=== PATIENT | female | born 1950 | race Caucasian/White ===

== ENCOUNTER → 2022-05-27 13:27 | Outpatient (BNVA) | payer MEDICARE, OTHER, SELFPAY | PROVIDERS: PCP Registered Nurse; Visit Provider Internal Medicine Endocrinology, Diabetes & Metabolism | DX: M81.0 Age-related osteoporosis without current pathological fracture (principal) | CPT/HCPCS: 99212 ==

== ENCOUNTER 2022-05-30 11:04 | Outpatient (REF) | payer MEDICARE, OTHER, SELFPAY ==
[2022-05-30 13:54] LABS: Alkaline Phosphatase 80 U/L (39-117); Blood Urea Nitrogen 15 mg/dL (9-16); Estimated Glomerular Filt Rate > 60; Phosphorus 3.7 mg/dL (2.7-4.5)
[2022-05-30 14:09] LABS: Free T4 (Free Thyroxine) 1.13 ng/dL (0.71-1.85); Thyroid Stimulating Hormone 1.61 uIU/mL (0.32-4.0); Vitamin D 25-OH Total 33.4 ng/mL (>30)
[2022-05-31 11:49] LABS: Calcium (PTHI) 9.5 mg/dL (8.6-10.4); PTHI 48 pg/mL (16-77)
[2022-06-01 11:42] LABS: Prot Elec - Alpha1 0.3 g/dL (0.2-0.3); Prot Elec - Alpha2 0.7 g/dL (0.5-0.9); Prot Elec - Beta 1 0.4 g/dL (0.4-0.6); Prot Elec - Beta 2 0.2 g/dL (0.2-0.5); Prot Elec - Gamma 0.6 g/dL (0.8-1.7); Prot Elec - Total Protein 6.1 g/dL (6.1-8.1)
== END 2022-05-30 11:05 | disposition home or self-care (01) ==
LOC: HO.10HDL 11:04
PROVIDERS: Visit Provider Internal Medicine Endocrinology, Diabetes & Metabolism
DX: M81.0 Age-related osteoporosis without current pathological fracture (principal); R53.83 Other fatigue; R53.81 Other malaise
CPT/HCPCS: 82306; 82565; 83970; 84075; 84100; 84165; 84439; 84443; 84520; 86335

== ENCOUNTER 2022-06-02 11:56 | Outpatient (REF) | payer MEDICARE, OTHER, SELFPAY ==
[2022-06-02 15:13] LABS: Creatinine, mg/dL 38.98
[2022-06-02 16:57] LABS: Creatinine, 24Hr Urine 0.7 G/Day (1.0-2.0); Total Volume 24 Hour Urine 1775 mL
[2022-06-04 18:44] LABS: Calcium, 24 Hr Urine 87 mg/24 h; Calcium/Creatinine Ratio 129 mg/g creat (30-275); Creatinine 24Hr Urine 0.67 g/24 h (0.50-2.15)
== END 2022-06-02 11:57 | disposition home or self-care (01) ==
LOC: HO.10HDLNP 11:56
PROVIDERS: Visit Provider Internal Medicine Endocrinology, Diabetes & Metabolism
DX: M81.0 Age-related osteoporosis without current pathological fracture (principal)
CPT/HCPCS: 82340; 82570

== ENCOUNTER → 2022-08-05 12:56 | Outpatient (BNVA) | payer MEDICARE, OTHER, SELFPAY | PROVIDERS: PCP Registered Nurse; Visit Provider Internal Medicine Endocrinology, Diabetes & Metabolism | DX: M81.0 Age-related osteoporosis without current pathological fracture (principal) | CPT/HCPCS: 99212 ==

== ENCOUNTER → 2022-08-29 10:41 | Outpatient (BNVA) | payer MEDICARE, OTHER, SELFPAY | PROVIDERS: PCP Registered Nurse; Visit Provider Internal Medicine Endocrinology, Diabetes & Metabolism ==

== ENCOUNTER 2022-12-13 11:02 | Outpatient (AMB) | payer MEDICARE, OTHER, SELFPAY ==
--- NOTE | 2022-12-13 11:04 | MHC.OFFVIS ---
Intake Vital Signs 12/13/22 11:05 Height 5 ft 3.54 in Weight 140 lb 3.424 oz BMI 24.4 BP 130/44 L Blood Pressure Location Lt brachial Position Sitting Pulse 69 Pulse Source Pulse Oximeter Intake Visit Reasons: Osteoporosis/Confirmed Intake Note: Patient present for Osteoporosis follow up visit. 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 Not seen wheel blocker First diagnosed in 2 yrs . Received treatment in the past with Miacalcin , from 05/03/22 to present . Tolerated treatment well without complication. history of pathologic fracture slipped on bathroom room 04/28/22 Compression FX in L1-L3 Has some servings of dietary calcium per day in the form of yogurt . Takes Calcium supplement 820 mg daily in divided doses. Takes 3400 IU of Vitamin D daily. Denies ever using PPI, anticoagulant, antiepileptic or glucocorticoid medication. Does weight bearing exercise 5-7 days per week in the form of barbells . 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 UTD on dental cleanings and sees dentist every 6 months. No planned upcoming dental work or extractions. DXA dated 03/18/21: Femoral neck T-score equals -3.1 Labs: Secondary workup was negative Currently on Tymlos 80 mcg q.d. for 10 wks [facility] Medical History (Updated 05/27/22 @ 13:49 by Hayden Galindo MD) Osteoporosis Surgical History Hx of bone density study Hx of colonoscopy History of carpal tunnel surgery Hx of mammogram Hx of tonsillectomy Hx of tubal ligation Hx of breast biopsy Hx of total hysterectomy Hx of hysterectomy Family History Mother Alzheimer disease Depressive disorder Dementia Father Cerebrovascular accident (CVA) determined by clinical assessment Hypercholesteremia Diabetes mellitus Brother Diabetes mellitus Asthma Brother Diabetes mellitus Social History Household Members: Spouse and Children Alcohol intake: current Alcohol intake frequency: 0-2 drinks per day Alcohol type: wine Patient Tobacco Use Status: Former Tobacco user Tobacco use type: Cigarette Years Smoked: >20 yrs, started age 14 e-Cigarette/Vaping Use: Never Used Physical Exam Vital Signs: Last Vital Signs Pulse 69 12/13/22 11:05 BP 130/44 L 12/13/22 11:05 BMI result Body Mass Index 24.4 Assessment & Plan Assessment & Plan (1) Osteoporosis: Code(s): M81.0 - Age-related osteoporosis without current pathological fracture Plan: This is a 71-year-old white female with history of osteoporosis currently being treated with intranasal calcitonin. Secondary workup was negative The plan is to continue the Tymlos for 18 months duration Coding Level of Care Code Est Pt Level 3 (48738) Diagnoses Osteoporosis M81.0
[2022-12-13 11:05] VITALS: BP 130/44; PULSE 69; BMI 24.4
== END 2022-12-13 11:44 | disposition home or self-care (01) ==
PROVIDERS: PCP Registered Nurse; Visit Provider Internal Medicine Endocrinology, Diabetes & Metabolism
DX: M81.0 Age-related osteoporosis without current pathological fracture (principal)
CPT/HCPCS: 99213

== ENCOUNTER → 2022-12-13 11:02 | Outpatient (BNVA) | payer MEDICARE, OTHER, SELFPAY | PROVIDERS: Visit Provider Internal Medicine Endocrinology, Diabetes & Metabolism | DX: M81.0 Age-related osteoporosis without current pathological fracture (principal) | CPT/HCPCS: 99212 ==

== ENCOUNTER 2023-07-17 10:53 | Outpatient (AMB) | payer MEDICARE, OTHER, SELFPAY ==
[2023-07-17 10:54] VITALS: BP 126/48; PULSE 67; BMI 25.6
--- NOTE | 2023-07-17 10:54 | MHC.OFFVIS ---
Vital Signs 07/17/23 10:54 Height 5 ft 3.54 in Weight 146 lb 13.246 oz BMI 25.6 BP 126/48 L Blood Pressure Location Lt brachial Position Sitting Pulse 67 Pulse Source Pulse Oximeter Intake Visit Reasons: f/u osteoporosis-confirmed Intake Note: Patient presents today for Osteoporosis follow up. Rehabilitation Assistant Required: No Accompanied by: Self / Same As Patient Allergies ibuprofen Adverse Reaction (Unknown, Verified 07/17/23 11:01) Rash HPI Comments Details: 72 YO Female with is seen in consultation at the request of PCP for Osteoporosis. First diagnosed in 2 yrs . Received treatment in the past with Miacalcin , from 05/03/22 to present . Tolerated treatment well without complication. history of pathologic fracture slipped on bathroom room 04/28/22 Compression FX in L1-L3 Has some servings of dietary calcium per day in the form of yogurt . Takes Calcium supplement 820 mg daily in divided doses. Takes 3400 IU of Vitamin D daily. Denies ever using PPI, anticoagulant, antiepileptic or glucocorticoid medication. Does weight bearing exercise 5-7 days per week in the form of barbells . 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 UTD on dental cleanings and sees dentist every 6 months. No planned upcoming dental work or extractions. DXA dated 03/18/21: Femoral neck T-score equals -3.1 Labs: Secondary workup was negative Currently on Tymlos 80 mcg q.d. for 11 mos No fx or unual back pain since last visit [facility] Medical History (Updated 05/27/22 @ 13:49 by Hayden Galindo MD) Osteoporosis Surgical History Hx of bone density study Hx of colonoscopy History of carpal tunnel surgery Hx of mammogram Hx of tonsillectomy Hx of tubal ligation Hx of breast biopsy Hx of total hysterectomy Hx of hysterectomy Family History Mother Alzheimer disease Depressive disorder Dementia Father Cerebrovascular accident (CVA) determined by clinical assessment Hypercholesteremia Diabetes mellitus Brother Diabetes mellitus Asthma Brother Diabetes mellitus Social History Household Members: Spouse and Children Alcohol intake: current Alcohol intake frequency: 0-2 drinks per day Alcohol type: wine Patient Tobacco Use Status: Former Tobacco user Tobacco use type: Cigarette Years Smoked: >20 yrs, started age 14 e-Cigarette/Vaping Use: Never Used Physical Exam Vital Signs: Last Vital Signs Pulse 67 07/17/23 10:54 BP 126/48 L 07/17/23 10:54 BMI result Body Mass Index 25.6 Assessment & Plan Assessment & Plan (1) Osteoporosis: Code(s): M81.0 - Age-related osteoporosis without current pathological fracture Category: Medical Plan: This is a 71-year-old white female with history of osteoporosis currently being treated with Tymlos for 11 mos . Secondary workup was negative The plan is to continue the Tymlos for 18 months duration Medications: Refilled abaloparatide (Tymlos) inject into abdomen; do not inject within 2 inches of belly button/navel; rotate sites 80 mcg (0.04 mL) subcut DAILY 1.56 mL 6RF abaloparatide (Tymlos) inject into abdomen; do not inject within 2 inches of belly button/navel; rotate sites 80 mcg (0.04 mL) subcut DAILY 1.56 mL 6RF
== END 2023-07-17 11:24 | disposition home or self-care (01) ==
LOC: HO.ENCR 10:53
PROVIDERS: PCP Registered Nurse; Visit Provider Internal Medicine Endocrinology, Diabetes & Metabolism
DX: M81.0 Age-related osteoporosis without current pathological fracture (principal)
CPT/HCPCS: 99213

== ENCOUNTER → 2023-07-17 10:53 | Outpatient (BNVA) | payer MEDICARE, OTHER, SELFPAY | PROVIDERS: PCP Registered Nurse; Visit Provider Internal Medicine Endocrinology, Diabetes & Metabolism | DX: M81.0 Age-related osteoporosis without current pathological fracture (principal) | CPT/HCPCS: 99212 ==

== ENCOUNTER 2023-12-25 10:47 | Outpatient (AMB) | payer MEDICARE, OTHER, SELFPAY ==
--- NOTE | 2023-12-25 10:52 | A.OFFVIS_ITS ---
Vital Signs 12/25/23 10:57 Height 5 ft 3.54 in Weight 146 lb 2.664 oz BMI 25.5 BP 110/54 L Blood Pressure Location Rt brachial Position Sitting Pulse 74 Pulse Source Pulse Oximeter Intake Visit Reasons: Osteoporosis. LVM Intake Note: Patient present today for Osteoporosis follow up. Offal Worker Required: No Accompanied by: Spouse Allergies ibuprofen Adverse Reaction (Unknown, Verified 12/25/23 10:57) Rash HPI Comments Details: 73 YO Female with is seen in consultation at the request of PCP for Osteoporosis. First diagnosed in 2 yrs . Received treatment in the past with Miacalcin , from 05/03/22 to present . Tolerated treatment well without complication. history of pathologic fracture slipped on bathroom room 04/28/22 Compression FX in L1-L3 Has some servings of dietary calcium per day in the form of yogurt . Takes Calcium supplement 820 mg daily in divided doses. Takes 3400 IU of Vitamin D daily. Denies ever using PPI, anticoagulant, antiepileptic or glucocorticoid medication. Does weight bearing exercise 5-7 days per week in the form of barbells . 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 UTD on dental cleanings and sees dentist every 6 months. No planned upcoming dental work or extractions. DXA dated 03/18/21: Femoral neck T-score equals -3.1 Labs: Secondary workup was negative Currently on Tymlos 80 mcg q.d. for 17 mos No fx or unual back pain since last visit PFSH Medical History (Updated 05/27/22 @ 13:49 by Hayden Galindo MD) Osteoporosis Surgical History Hx of bone density study Hx of colonoscopy History of carpal tunnel surgery Hx of mammogram Hx of tonsillectomy Hx of tubal ligation Hx of breast biopsy Hx of total hysterectomy Hx of hysterectomy Family History Mother Alzheimer disease Depressive disorder Dementia Father Cerebrovascular accident (CVA) determined by clinical assessment Hypercholesteremia Diabetes mellitus Brother Diabetes mellitus Asthma Brother Diabetes mellitus Social History Household Members: Spouse and Children Alcohol intake: current Alcohol intake frequency: 0-2 drinks per day Alcohol type: wine Patient Tobacco Use Status: Former Tobacco user Tobacco use type: Cigarette Years Smoked: >20 yrs, started age 14 e-Cigarette/Vaping Use: Never Used Assessment & Plan Assessment & Plan (1) Osteoporosis: Code(s): M81.0 - Age-related osteoporosis without current pathological fracture Category: Medical Plan: This is a 73-year-old white female with history of osteoporosis currently being treated with Tymlos for 16 mos . Secondary workup was negative The plan is to continue the Tymlos for 18 months duration. Could consider transitioning either to Prolia or bisphosphonate. After careful discussion with the patient's , we decided to transition to alendronate 70 mg Q weekly. She will start this in February 2024. We will check urine NTX 3 months after initiation of alendronate. I went over proper administration of alendronate and side effects of alendronate. She will continue calcium and vitamin-D supplementation as well as weight-bearing exercise Orders: Orders Collagen Crosslinks NTX 5 Months M81.0 - Age-related osteoporosis without current pathological fracture Medications: New alendronate 70 mg PO QWEEK 5 tabs 6RF Coding Level of Care Code Est Pt Level 3 (04369) Diagnoses Osteoporosis M81.0
[2023-12-25 10:57] VITALS: BP 110/54; PULSE 74; BMI 25.5
== END 2023-12-25 11:32 | disposition home or self-care (01) ==
PROVIDERS: PCP Registered Nurse; Visit Provider Internal Medicine Endocrinology, Diabetes & Metabolism
DX: M81.0 Age-related osteoporosis without current pathological fracture (principal)
CPT/HCPCS: 99213

== ENCOUNTER → 2023-12-25 10:47 | Outpatient (BNVA) | payer MEDICARE, OTHER, SELFPAY | PROVIDERS: PCP Registered Nurse; Visit Provider Internal Medicine Endocrinology, Diabetes & Metabolism | DX: M81.0 Age-related osteoporosis without current pathological fracture (principal) | CPT/HCPCS: 99212 ==

== ENCOUNTER 2024-06-24 10:55 | Outpatient (AMB) | payer MEDICARE, OTHER, SELFPAY ==
--- NOTE | 2024-06-24 10:59 | A.OFFVIS_ITS ---
Vital Signs 06/24/24 11:04 Height 5 ft 3.5 in Weight 140 lb 10.479 oz BMI 24.5 BP 98/48 L Blood Pressure Location Rt brachial Position Sitting Pulse 90 Pulse Source Pulse Oximeter Pulse Oximetry (%) 98 Oxygen Delivery Method Room Air Intake Visit Reasons: f/u osteoporosis Intake Note: Patient present today for Osteoporosis follow up. 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 Accompanied by: Spouse Allergies ibuprofen Adverse Reaction (Unknown, Verified 06/24/24 11:05) Rash Medication List - Last Reconciled 06/24/24 by Hayden Galindo MD abaloparatide (Tymlos) 80 mcg (0.04 mL) subcut DAILY alendronate 70 mg PO QWEEK ascorbic acid (vitamin C) mg PO calcium carbonate (Antacid Calcium) 215 mg PO BID calcium carbonate-vitamin D3 600 mg-10 mcg (400 unit) (Calcium 600 with Vitamin D3) tabs PO cholecalciferol (vitamin D3) 50 mcg PO DAILY donepezil 10 mg PO BEDTIME lisinopril 10 mg PO DAILY lisinopril 20 mg PO DAILY multivitamin 1 tab PO DAILY rosuvastatin 10 mg PO DAILY HPI Comments Details: 73 YO Female with is seen in consultation at the request of PCP for Osteoporosis. First diagnosed in 2 yrs . Received treatment in the past with Miacalcin , from 05/03/22 to present . Tolerated treatment well without complication. history of pathologic fracture slipped on bathroom room 04/28/22 Compression FX in L1-L3 Has some servings of dietary calcium per day in the form of yogurt . Takes Calcium supplement 820 mg daily in divided doses. Takes 3400 IU of Vitamin D daily. Denies ever using PPI, anticoagulant, antiepileptic or glucocorticoid medication. Does weight bearing exercise 5-7 days per week in the form of barbells . 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 UTD on dental cleanings and sees dentist every 6 months. No planned upcoming dental work or extractions. DXA dated 03/18/21: Femoral neck T-score equals -3.1 Labs: Secondary workup was negative Currently on alendronate 70 mg Q weekly since 02/2024. Did not go for urine NTX No fx or unual back pain since last visit The patient is a 73-year-old female presenting for a follow-up and evaluation of osteoporosis management. She has been consistent with her Alendronate regimen since March 01. She reported no adverse effects or fractures since starting the medication. The patient will have a bone turnover test to evaluate the efficacy of the treatment. Previously, she had a T-score indicating osteoporosis, but the condition shows some improvement. The patient engages in light weight-bearing exercises and uses a large exercise ball for physical activity, which is beneficial for her osteoporosis and spinal health. [facility] Medical History (Updated 05/27/22 @ 13:49 by Hayden Galindo MD) Osteoporosis Surgical History Hx of bone density study Hx of colonoscopy History of carpal tunnel surgery Hx of mammogram Hx of tonsillectomy Hx of tubal ligation Hx of breast biopsy Hx of total hysterectomy Hx of hysterectomy Family History Mother Alzheimer disease Depressive disorder Dementia Father Cerebrovascular accident (CVA) determined by clinical assessment Hypercholesteremia Diabetes mellitus Brother Diabetes mellitus Asthma Brother Diabetes mellitus Social History Household Members: Spouse and Children Alcohol intake: current Alcohol intake frequency: 0-2 drinks per day Alcohol type: wine Patient Tobacco Use Status: Former Tobacco user Tobacco use type: Cigarette Years Smoked: >20 yrs, started age 14 e-Cigarette/Vaping Use: Never Used Assessment & Plan Assessment & Plan (1) Osteoporosis: Code(s): M81.0 - Age-related osteoporosis without current pathological fracture Category: Medical Plan: This is a 73-year-old white female with history of osteoporosis currently being treated with alendronate after taking a 18 month course of Tymlos . Secondary workup was negative The plan is to check urine NTX. Assuming urine NTX is suppressed we will continue alendronate until repeat DEXA in 05/2025. 1. Osteoporosis: The patient's osteoporosis is currently managed with Alendronate following Tymlos , showing some improvement. She is scheduled for a bone turnover test and a follow-up bone density scan in one year to ensure the treatment's efficacy. Continued exercise and adherence to the medication regimen are advised. Pain from prior fractures is managed with acetaminophen. During our conversation, I discussed the current management of osteoporosis with the patient, focusing on the continued use of Alendronate and the importance of regular monitoring through bone turnover tests and bone density scans. We reviewed the T-score indicating osteoporosis and her improvement over time. I emphasized the importance of maintaining a light exercise regimen to support bone health. We also discussed the follow-up bone turnover test and how it aligns with ensuring the suppression of turnover markers into the premenopausal range. The patient was agreeable to continue with the current treatment plan, and the necessity of the planned diagnostics to evaluate treatment efficacy was confirmed. Additionally, the use of acetaminophen was reviewed as needed for pain management related to past fractures. - Continue taking Alendronate as prescribed, once a week with a full glass of water. - Maintain the exercise routine with light weight-bearing activities. - Use acetaminophen as needed for pain, keeping below the daily maximum dose. - Attend scheduled lab tests, including the bone turnover test. - Plan to have a follow-up bone density scan in approximately one year. - The patient had an opportunity to ask questions regarding treatment plan. The patient expressed understanding and agreement with the above treatment plan. Patient was informed and verbally consented to the use of an ambient scribe for clinic note documentation during this visit. Orders: Orders XR DEXA axial skeleton 1 Year M81.0 - Age-related osteoporosis without current pathological fracture Collagen Crosslinks NTX 6 Months M81.0 - Age-related osteoporosis without current pathological fracture Medications: Discontinued abaloparatide (Tymlos) Discontinued Reason: Doctor's Order 80 mcg (0.04 mL) subcut DAILY 1.56 mL 3RF Coding Level of Care Code Est Pt Level 3 (98007) Diagnoses Osteoporosis M81.0
[2024-06-24 11:04] VITALS: BP 98/48; PULSE 90; O2SAT 98; BMI 24.5
--- OUTSIDE RECORDS SUMMARY | 2024-06-24 12:23 | XMS_ITS | Data Portability ---
Author Organization [facility], Main Office Address [address] [facility] [address] [place] [id number] Care Team Providers Care Lineworker Name Role Phone PRASANNA STILL Community Support Associate [phone] GUY JACKSON Orthopedic Surgeon [phone] [facility] [place] [employer]age Supervisor AT PHYSICAL THERAPY - [facility] YURIDIA ANDRADE Primary Care Provider Assessment No assessment recorded. Plan of Treatment Reminders Order Date Submit Date Provider Last Modified By Organization Details Last Modified Time Details Appointments FOLLOW UP 30MIN 2024 10:30A M Yuridia Andrade PA-C Not available Not available Not available Lab CBC w/ auto diff 2024 025 JAIDEN [facility] (Centralized Electronic Ordering - All Locations), Patient Can Go To The Location Of Their Choice, 05/08/2024 08:07:59 lipid panel, serum 2024 025 JAIDEN [facility] (Centralized Electronic Ordering - All Locations), Patient Can Go To The Location Of Their Choice, 05/08/2024 08:07:57 CMP, serum or plasma 2024 025 JAIDEN [facility] (Centralized Electronic Ordering - All Locations), Patient Can Go To The Location Of Their Choice, 05/08/2024 08:07:56 TSH + free T4, serum 2024 025 JAIDEN [facility] (Centralized Electronic Ordering - All Locations), Patient Can Go To The Location Of Their Choice, 05/08/2024 08:07:58 vitami n D, 25-hyd gene, total, serum 2023 JAIDEN [facility] (Centralized Electronic Ordering - All Locations), Patient Can Go To The Location Of Their Choice, 10/12/2023 14:06:51 PTH (parat hyroid hormon e), intact + calciu m, serum or plasma 2023 024 JAIDEN [facility] (Centralized Electronic Ordering - All Locations), Patient Can Go To The Location Of Their Choice, 10/12/2023 14:06:50 BMP, serum or plasma 2023 024 JAIDEN [facility] (Centralized Electronic Ordering - All Locations), Patient Can Go To The Location Of Their Choice, 10/12/2023 14:06:48 CBC w/ auto diff 2023 JAIDEN [facility] (Centralized Electronic Ordering - All Locations), Patient Can Go To The Location Of Their Choice, 10/12/2023 14:06:47 hepati c functi on panel, serum 2023 JAIDEN [facility] (Centralized Electronic Ordering - All Locations), Patient Can Go To The Location Of Their Choice, 10/12/2023 14:06:49 lipid panel, serum 2023 024 JAIDEN [facility] (Centralized Electronic Ordering - All Locations), Patient Can Go To The Location Of Their Choice, 10/12/2023 14:06:50 osmola lity, urine 2023 024 JAIDEN Not available 05/02/2023 22:42:58 osmola lity, serum 2023 024 JAIDEN Not available 05/02/2023 19:25:36 adh (antid iureti c hormon e), serum or plasma 2023 024 JAIDEN Not available 05/12/2023 15:06:28 sodium , urine 2023 024 JAIDEN Not available 05/02/2023 22:30:33 CBC w/ auto diff 2023 024 JAIDEN Not available 04/12/2023 15:55:09 lipid panel, serum 2023 024 [email or web address] Not available 11/02/2023 11:51:58 CMP, serum or plasma 2023 024 JAIDEN Not available 04/12/2023 16:27:04 TSH, serum or plasma 2023 024 JAIDEN Not available 04/12/2023 16:48:56 T4, free, serum 2023 024 JAIDEN Not available 04/12/2023 16:48:55 ESR (eryth rocyte sedime ntatio n rate), blood 2022 023 JAIDEN Not available 10/03/2022 21:51:11 RPR (rapid plasma reagin ), titer, serum 2022 023 JAIDEN Not available 10/04/2022 12:56:28 BMP, serum or plasma 2022 023 JAIDEN Not available 10/03/2022 21:27:22 Referral gastro entero logist referr al - Needs colon cancer screen ing due 2024- july [id number] [email or web address] Still MD, [address] [facility], [facility] [address], [place], [address], 04/09/2024 13:39:09 neurol ogist referr tommy - Memory impair ment, has been waitin g on appt since September. repeat s phrase s, not drivin g much due to fear of gettin g lost, 6CIT up 16 from 12 in September, sodium was low but was correc delia. 2023 024 [email or web address] [facility], [address] [facility] [facility], [address], [place], [address], 06/02/2023 14:47:56 neurol ogist referr tommy - 6CIT score 12, was 0 in decemb er, s/p fall in feb with compre ssion fractu re. 2022 023 [email or web address] [facility], [address] [facility], [address], [place], [address], 06/15/2023 13:28:58 Procedures None record ed. Surgeries None record ed. Imaging bone densit y - due for bone densit y, hx osteop orosis and osteop enia on tymlos daily 2023 024 [email or web address] [facility], [address] [facility], [address], [place], [address], 04/24/2023 13:52:05 CT, head, w/o contra st - memory impair ment, r/o mass. 2022 023 [email or web address] [facility], [address] [facility], [address], [place], [address], 10/14/2022 10:52:02 Medication Orders rosuva statin 10 mg tablet 2023 024 JAIDEN [facility][id number], [address] [place], [place], [id number], 10/06/2023 10:54:29 diclof enac 1 % topica l gel 2022 023 [email or web address] [facility] #[id number], [address] [place], [place], [id number], 04/09/2024 11:12:40 Patient TargetsNo targets recorded. Patient Instructions Encounter Date Encounter Id Patient Instructions Last Modified By Organization Details Last Modified Time 06/13/2022 [id number] Follow up as needed. [email or web address] Not available 06/13/2022 11:32:52 09/29/2022 [id number] To call or retur n for worsening or concerns [email or web address] Not available 09/29/2022 10:14:41 04/06/2023 [id number] dash diet: care instructions [email or web address] Not available 04/06/2023 10:50:51 high blood pressure: care instructions [email or web address] Not available 04/06/2023 10:50:50 preventing falls : care instructions [email or web address] Not available 04/06/2023 10:50:50 medicare preventive services guide (female 74yrs and under) [email or web address] Not available 04/06/2023 10:50:50 To call or retur n for worsening or concerns jthabet Not available 04/06/2023 10:40:55 10/06/2023 [id number] To call or retur n for worsening or concerns jthabet Not available 10/06/2023 10:56:43 04/09/2024 [id number] learning about colon cancer jthabet Not available 04/09/2024 11:46:11 dash diet: care instructions jthabet Not available 04/09/2024 11:40:22 high blood pressure: care instructions jthabet Not available 04/09/2024 11:40:22 preventing falls : care instructions jthabet Not available 04/09/2024 11:40:22 well visit, over 65: care instructions jthabet Not available 04/09/2024 11:40:22 medicare preventive services guide (female 74yrs and under) [email or web address] Not available 04/09/2024 11:40:22 To call or retur n for worsening or concerns jthabet Not available 04/09/2024 11:40:58 Reason for Referral Neurologist Referral for Mem ory impairment 6CIT score 12, was 0 in february, s/p fall in apr with compression fracture. Referring Physician: Yuridia Andrade [facility] Patito, Encounter Date: 09/29/2022 Neurologist Referral for Mem ory impairment Memory impairment, has been waiting on appt since September. repeats phrases, not driving much due to fear of getting lost, 6CIT up 16 from 12 in September, sodium was low but was corrected. Referring Physician: Family Patito Small, Encounter Date: 04/06/2023 Community Support Associate Referral for Screening for malignant neoplasm of colon Needs colon cancer screening due 2024- july Referring Physician: Family Patito Small, Encounter Date: 04/09/2024 Results Created Date Observation Date Name Description Value Unit Range Abnormal Flag Note LastModifiedBy Organization Detail LastModifiedTime 10/04/1910/03/2022 BASIC METAB OLIC PANEL glucose 88 mg/dL (70-99 ) Not Available [facility] (Centralized Electronic Ordering - All Locations) Patient Can Go To The Location Of Their Choice, 10/03/2022 21:27:22 10/04/1910/03/2022 BASIC METAB OLIC PANEL BUN 19 mg/dL (8-23) Not Available [facility] (Centralized Electronic Ordering - All Locations) Patient Can Go To The Location Of Their Choice, 10/03/2022 21:27:22 10/04/1910/03/2022 BASIC METAB OLIC PANEL creatinine 0.7 mg/dL (0.5-1 .0) Not Available [facility] (Centralized Electronic Ordering - All Locations) Patient Can Go To The Location Of Their Choice, 10/03/2022 21:27:22 10/04/1910/03/2022 BASIC METAB OLIC PANEL sodium 130 mmol/ L (133-1 45) low Not Available [facility] (Centralized Electronic Ordering - All Locations) Patient Can Go To The Location Of Their Choice, 10/03/2022 21:27:22 10/04/1910/03/2022 BASIC METAB OLIC PANEL potassium 5.0 mmol/ L (3.6-5 .2) Not Available [facility] (Centralized Electronic Ordering - All Locations) Patient Can Go To The Location Of Their Choice, 10/03/2022 21:27:22 10/04/1910/03/2022 BASIC METAB OLIC PANEL chloride 92 mmol/ L (98-10 7) low Not Available [facility] (Centralized Electronic Ordering - All Locations) Patient Can Go To The Location Of Their Choice, 10/03/2022 21:27:22 10/04/1910/03/2022 BASIC METAB OLIC PANEL bicarbonate 28 mmol/ L (22-29 ) Not Available [facility] (Centralized Electronic Ordering - All Locations) Patient Can Go To The Location Of Their Choice, 10/03/2022 21:27:22 10/04/1910/03/2022 BASIC METAB OLIC PANEL anion gap 10 (4-17) Not Available [facility] (Centralized Electronic Ordering - All Locations) Patient Can Go To The Location Of Their Choice, 10/03/2022 21:27:22 10/04/19 23 10/03/2022 BASIC METAB OLIC PANEL calcium 9.6 mg/dL (8.6-1 0.5) Not Available [facility] (Centralized Electronic Ordering - All Locations) Patient Can Go To The Location Of Their Choice, 10/03/2022 21:27:22 10/04/19 23 10/03/2022 BASIC METAB OLIC PANEL estimated GFR creatinine 92 mL/mi n/1.7 3_M2 Creat inine based estim ated glome rular filtr ation (eGFR ) in adult s is calcu lated using the Natio nal Kidne y Found ation recom jyoti d 2020 CKD-E PI equat ion. Estim ates GFR from serum creat inine , age and sex. Not Available [facility] (Centralized Electronic Ordering - All Locations) Patient Can Go To The Location Of Their Choice, 10/03/2022 21:27:22 10/04/1910/03/2022 SEDIM ENTAT ION RATE, AUTOM ATED sedimentatio n rate,automat ed <2 mm/HR (0-20) RESUL TS CHECK ED Not Available [facility] (Centralized Electronic Ordering - All Locations) Patient Can Go To The Location Of Their Choice, 10/03/2022 21:51:11 10/04/1910/04/2022 SYPHI LIS TESTI NG syphilis screen by sofya (neg) normal NEGAT DES Refer ence range : Negat des This test was perfo rmed on the Abbot t Archi tect immun oassa y syste m. Not Available [facility] (Centralized Electronic Ordering - All Locations) Patient Can Go To The Location Of Their Choice, 10/04/2022 12:56:28 10/04/19 23 10/04/2022 SYPHI LIS TESTI NG RPR titer result NOT INDICA DELIA Not Available [facility] (Centralized Electronic Ordering - All Locations) Patient Can Go To The Location Of Their Choice, 10/04/2022 12:56:28 10/04/1910/04/2022 SYPHI LIS TESTI NG tppa result NOT INDICA DELIA Not Available [facility] (Centralized Electronic Ordering - All Locations) Patient Can Go To The Location Of Their Choice, 10/04/2022 12:56:28 10/04/1910/04/2022 SYPHI LIS TESTI NG syphilis interpretati on Indic ative of the absen ce of infec tion with Trepo nemal palli dum. Test may be negat des in cases of incub ating or early prima ry syphi lis. Consi shannon repea t testi ng in sever al weeks if clini janeth suspi cion is high. Not Available [facility] (Centralized Electronic Ordering - All Locations) Patient Can Go To The Location Of Their Choice, 10/04/2022 12:56:28 10/20/1910/19/2022 BASIC METAB OLIC PANEL glucose 117 mg/dL (70-99 ) high Not Available [facility] (Centralized Electronic Ordering - All Locations) Patient Can Go To The Location Of Their Choice, 10/19/2022 16:13:00 10/20/1910/19/2022 BASIC METAB OLIC PANEL BUN 15 mg/dL (8-23) Not Available [facility] (Centralized Electronic Ordering - All Locations) Patient Can Go To The Location Of Their Choice, 10/19/2022 16:13:00 10/20/1910/19/2022 BASIC METAB OLIC PANEL creatinine 0.6 mg/dL (0.5-1 .0) Not Available [facility] (Centralized Electronic Ordering - All Locations) Patient Can Go To The Location Of Their Choice, 10/19/2022 16:13:00 10/20/1910/19/2022 BASIC METAB OLIC PANEL sodium 136 mmol/ L (133-1 45) Not Available [facility] (Centralized Electronic Ordering - All Locations) Patient Can Go To The Location Of Their Choice, 10/19/2022 16:13:00 10/20/1910/19/2022 BASIC METAB OLIC PANEL potassium 4.0 mmol/ L (3.6-5 .2) Not Available [facility] (Centralized Electronic Ordering - All Locations) Patient Can Go To The Location Of Their Choice, 10/19/2022 16:13:00 10/20/19 23 10/19/2022 BASIC METAB OLIC PANEL chloride 95 mmol/ L (98-10 7) low Not Available [facility] (Centralized Electronic Ordering - All Locations) Patient Can Go To The Location Of Their Choice, 10/19/2022 16:13:00 10/20/19 23 10/19/2022 BASIC METAB OLIC PANEL bicarbonate 28 mmol/ L (22-29 ) Not Available [facility] (Centralized Electronic Ordering - All Locations) Patient Can Go To The Location Of Their Choice, 10/19/2022 16:13:00 10/20/19 23 10/19/2022 BASIC METAB OLIC PANEL anion gap 13 (4-17) Not Available [facility] (Centralized Electronic Ordering - All Locations) Patient Can Go To The Location Of Their Choice, 10/19/2022 16:13:00 10/20/19 23 10/19/2022 BASIC METAB OLIC PANEL calcium 9.7 mg/dL (8.6-1 0.5) Not Available [facility] (Centralized Electronic Ordering - All Locations) Patient Can Go To The Location Of Their Choice, 10/19/2022 16:13:00 10/20/19 23 10/19/2022 BASIC METAB OLIC PANEL estimated GFR creatinine 94 mL/mi n/1.7 3_M2 Creat inine based estim ated glome rular filtr ation (eGFR ) in adult s is calcu lated using the Natio nal Kidne y Found ation recom jyoti d 2020 CKD-E PI equat ion. Estim ates GFR from serum creat inine , age and sex. Not Available [facility] (Centralized Electronic Ordering - All Locations) Patient Can Go To The Location Of Their Choice, 10/19/2022 16:13:00 10/20/1910/19/2022 SODIU M, URINE MMOL/ L sodium, urine mmol/L 54 mmol/ L Not Available [facility] (Centralized Electronic Ordering - All Locations) Patient Can Go To The Location Of Their Choice, 10/19/2022 16:21:19 10/20/19 23 10/19/2022 OSMOL ALITY , URINE RANDO M osmolality, urine random 346 mOsm/ kg (50-14 00) Not Available [facility] (Centralized Electronic Ordering - All Locations) Patient Can Go To The Location Of Their Choice, 10/19/2022 16:52:09 10/20/19 23 10/19/2022 OSMOL ALITY , SERUM osmolality, serum 280 mos/k g (280-2 90) Not Available [facility] (Centralized Electronic Ordering - All Locations) Patient Can Go To The Location Of Their Choice, 10/19/2022 16:52:31 10/20/19 23 10/27/2022 VASOP RESSI N (ADH) vasopressin (adh) <0.8 Refer ence range : 0.0 to 4.7 Unit: pg/mL (NOTE ) This test was tran calied and its perfo rmanc e liz cteri stics deter mined by [facility]. It has not been clear ed or appro molly by the Food and Drug Admin istra tion. Test perfo rmed at [facility] , [address] [place] [address] , [facility] [place] [address] Not Available [facility] (Centralized Electronic Ordering - All Locations) Patient Can Go To The Location Of Their Choice, 10/27/2022 14:08:13 04/12/19 24 04/12/2023 IRON results Dupli mckayla order cance lled via inter face Not Available [facility] (Centralized Electronic Ordering - All Locations) Patient Can Go To The Location Of Their Choice, 04/12/2023 11:15:51 04/12/19 24 04/12/2023 COMPL ETE BLOOD COUNT WBC 5.4 K/mm3 (4.0-1 1.0) Not Available [facility] (Centralized Electronic Ordering - All Locations) Patient Can Go To The Location Of Their Choice, 04/12/2023 15:55:09 04/12/19 24 04/12/2023 COMPL ETE BLOOD COUNT RBC 4.14 M/mm3 (4.20- 5.40) low Not Available [facility] (Centralized Electronic Ordering - All Locations) Patient Can Go To The Location Of Their Choice, 04/12/2023 15:55:09 04/12/19 24 04/12/2023 COMPL ETE BLOOD COUNT HGB 12.8 gm/dL (11.7- 15.5) Not Available [facility] (Centralized Electronic Ordering - All Locations) Patient Can Go To The Location Of Their Choice, 04/12/2023 15:55:04/12/1904/12/2023 COMPL ETE BLOOD COUNT HCT 38.0 % (35.7- 45.8) Not Available [facility] (Centralized Electronic Ordering - All Locations) Patient Can Go To The Location Of Their Choice, 04/12/2023 15:55:04/12/1904/12/2023 COMPL ETE BLOOD COUNT MCV 91.8 fL (80.0- 100.0) Not Available [facility] (Centralized Electronic Ordering - All Locations) Patient Can Go To The Location Of Their Choice, 04/12/2023 15:55:04/12/1904/12/2023 COMPL ETE BLOOD COUNT MCH 30.9 pg (27.0- 34.0) Not Available [facility] (Centralized Electronic Ordering - All Locations) Patient Can Go To The Location Of Their Choice, 04/12/2023 15:55:04/12/1904/12/2023 COMPL ETE BLOOD COUNT MCHC 33.7 g/dL (33.0- 37.0) Not Available [facility] (Centralized Electronic Ordering - All Locations) Patient Can Go To The Location Of Their Choice, 04/12/2023 15:55:04/12/1904/12/2023 COMPL ETE BLOOD COUNT plt 304 K/mm3 (150-4 60) Not Available [facility] (Centralized Electronic Ordering - All Locations) Patient Can Go To The Location Of Their Choice, 04/12/2023 15:55:04/12/1904/12/2023 COMPL ETE BLOOD COUNT RDW-SD 49.2 fL (<47.0 ) high Not Available [facility] (Centralized Electronic Ordering - All Locations) Patient Can Go To The Location Of Their Choice, 04/12/2023 15:55:04/12/1904/12/2023 COMPL ETE BLOOD COUNT MPV 10.9 fL (9.4-1 2.4) Not Available [facility] (Centralized Electronic Ordering - All Locations) Patient Can Go To The Location Of Their Choice, 04/12/2023 15:55:09 04/12/19 24 04/12/2023 COMPL ETE BLOOD COUNT automated NRBC 0.0 #/100 _WBC' s Not Available [facility] (Centralized Electronic Ordering - All Locations) Patient Can Go To The Location Of Their Choice, 04/12/2023 15:55:09 04/12/19 24 04/12/2023 COMPL ETE BLOOD COUNT abs. NRBC 0.0 K/mm3 Not Available [facility] (Centralized Electronic Ordering - All Locations) Patient Can Go To The Location Of Their Choice, 04/12/2023 15:55:09 04/12/19 24 04/12/2023 COMPR EHENS DES METAB OLIC PANL glucose 89 mg/dL (70-99 ) Not Available [facility] (Centralized Electronic Ordering - All Locations) Patient Can Go To The Location Of Their Choice, 04/12/2023 16:27:04 04/12/19 24 04/12/2023 COMPR EHENS DES METAB OLIC PANL BUN 23 mg/dL (8-23) Not Available [facility] ([facility]ized Electronic Ordering - All Locations) Patient Can Go To The Location Of Their Choice, 04/12/2023 16:27:04 04/12/19 24 04/12/2023 COMPR EHENS DES METAB OLIC PANL creatinine 0.7 mg/dL (0.5-1 .0) Not Available [facility] (Centralized Electronic Ordering - All Locations) Patient Can Go To The Location Of Their Choice, 04/12/2023 16:27:04 04/12/19 24 04/12/2023 COMPR EHENS DES METAB OLIC PANL sodium 139 mmol/ L (133-1 45) Not Available [facility] ([facility]ized Electronic Ordering - All Locations) Patient Can Go To The Location Of Their Choice, 04/12/2023 16:27:04 04/12/19 24 04/12/2023 COMPR EHENS DES METAB OLIC PANL potassium 4.7 mmol/ L (3.6-5 .2) Not Available [facility] ([facility]ized Electronic Ordering - All Locations) Patient Can Go To The Location Of Their Choice, 04/12/2023 16:27:04 04/12/19 24 04/12/2023 COMPR EHENS DES METAB OLIC PANL chloride 100 mmol/ L (98-10 7) Not Available [facility] ([facility]ized Electronic Ordering - All Locations) Patient Can Go To The Location Of Their Choice, 04/12/2023 16:27:04 04/12/19 24 04/12/2023 COMPR EHENS DES METAB OLIC PANL bicarbonate 30 mmol/ L (22-29 ) high Not Available [facility] (Centralized Electronic Ordering - All Locations) Patient Can Go To The Location Of Their Choice, 04/12/2023 16:27:04 04/12/19 24 04/12/2023 COMPR EHENS DES METAB OLIC PANL anion gap 9 (4-17) Not Available [facility] (Centralized Electronic Ordering - All Locations) Patient Can Go To The Location Of Their Choice, 04/12/2023 16:27:04 04/12/19 24 04/12/2023 COMPR EHENS DES METAB OLIC PANL albumin 4.4 gm/dL (3.4-4 .8) Not Available [facility] (Centralized Electronic Ordering - All Locations) Patient Can Go To The Location Of Their Choice, 04/12/2023 16:27:04 04/12/19 24 04/12/2023 COMPR EHENS DES METAB OLIC PANL calcium 9.3 mg/dL (8.6-1 0.5) Not Available [facility] ([facility]ized Electronic Ordering - All Locations) Patient Can Go To The Location Of Their Choice, 04/12/2023 16:27:04 04/12/19 24 04/12/2023 COMPR EHENS DES METAB OLIC PANL bilirubin,to antoni 0.5 mg/dL (0-1.2 ) Not Available [facility] (Centralized Electronic Ordering - All Locations) Patient Can Go To The Location Of Their Choice, 04/12/2023 16:27:04 04/12/19 24 04/12/2023 COMPR EHENS DES METAB OLIC PANL total protein 6.6 gm/dL (6.2-8 .2) Not Available [facility] (Centralized Electronic Ordering - All Locations) Patient Can Go To The Location Of Their Choice, 04/12/2023 16:27:04 04/12/19 24 04/12/2023 COMPR EHENS DES METAB OLIC PANL Ag ratio 2.0 Not Available [facility] (Centralized Electronic Ordering - All Locations) Patient Can Go To The Location Of Their Choice, 04/12/2023 16:27:04 04/12/19 24 04/12/2023 COMPR EHENS DES METAB OLIC PANL AST 20 U/L (0-32) Not Available [facility] (Centralized Electronic Ordering - All Locations) Patient Can Go To The Location Of Their Choice, 04/12/2023 16:27:04 04/12/19 24 04/12/2023 COMPR EHENS DES METAB OLIC PANL alk phos 105 U/L (35-10 4) high Not Available [facility] (Centralized Electronic Ordering - All Locations) Patient Can Go To The Location Of Their Choice, 04/12/2023 16:27:04 04/12/19 24 04/12/2023 COMPR EHENS DES METAB OLIC PANL ALT 11 U/L (0-33) Not Available [facility] (Centralized Electronic Ordering - All Locations) Patient Can Go To The Location Of Their Choice, 04/12/2023 16:27:04 04/12/19 24 04/12/2023 COMPR EHENS DES METAB OLIC PANL estimated GFR creatinine 85 mL/mi n/1.7 3_M2 Creat inine based estim ated glome rular filtr ation (eGFR ) in adult s is calcu lated using the Natio nal Kidne y Found ation recom jyoti d 2020 CKD-E PI equat ion. Estim ates GFR from serum creat inine , age and sex. Not Available [facility] (Centralized Electronic Ordering - All Locations) Patient Can Go To The Location Of Their Choice, 04/12/2023 16:27:04 04/12/19 24 04/12/2023 IRON & TIBC iron 87 mcg/d L (30-16 0) Not Available [facility] (Centralized Electronic Ordering - All Locations) Patient Can Go To The Location Of Their Choice, 04/12/2023 16:27:06 04/12/19 24 04/12/2023 IRON & TIBC unsaturated iron binding capac 208 mcg/d L (110-3 70) Not Available [facility] (Centralized Electronic Ordering - All Locations) Patient Can Go To The Location Of Their Choice, 04/12/2023 16:27:06 04/12/19 24 04/12/2023 IRON & TIBC est T. iron bind capacity 295 mcg/d L (140-5 30) Not Available [facility] (Centralized Electronic Ordering - All Locations) Patient Can Go To The Location Of Their Choice, 04/12/2023 16:27:06 04/12/1904/12/2023 IRON & TIBC % iron saturation 29 % (20-55 ) Not Available [facility] (Centralized Electronic Ordering - All Locations) Patient Can Go To The Location Of Their Choice, 04/12/2023 16:27:06 04/12/1904/12/2023 VITAM IN B12 vitamin B12 1059 pg/mL (232-1 245) Not Available [facility] (Centralized Electronic Ordering - All Locations) Patient Can Go To The Location Of Their Choice, 04/12/2023 16:48:53 04/12/1904/12/2023 FLETCHER TIN ferritin 183 NG/mL (14-28 3) Not Available [facility] (Centralized Electronic Ordering - All Locations) Patient Can Go To The Location Of Their Choice, 04/12/2023 16:48:54 04/12/1904/12/2023 FREE T4 free T4 1.34 NG/dL (0.70- 1.80) Not Available [facility] (Centralized Electronic Ordering - All Locations) Patient Can Go To The Location Of Their Choice, 04/12/2023 16:48:55 04/12/1904/12/2023 TSH TSH 2.40 uIU/m L (0.4-4 .2) Not Available [facility] (Centralized Electronic Ordering - All Locations) Patient Can Go To The Location Of Their Choice, 04/12/2023 16:48:56 04/12/1904/12/2023 25OH VITAM IN D 25OH vitamin D 31.6 NG/mL (20-50 ) Not Available [facility] (Centralized Electronic Ordering - All Locations) Patient Can Go To The Location Of Their Choice, 04/12/2023 16:48:57 05/02/19 24 05/02/2023 COMPL ETE CBC WITH DIFF WBC 5.8 K/mm3 (4.0-1 1.0) Not Available [facility] (Centralized Electronic Ordering - All Locations) Patient Can Go To The Location Of Their Choice, 05/02/2023 16:26:50 05/02/19 24 05/02/2023 COMPL ETE CBC WITH DIFF RBC 4.22 M/mm3 (4.20- 5.40) Not Available [facility] ([facility]ized Electronic Ordering - All Locations) Patient Can Go To The Location Of Their Choice, 05/02/2023 16:26:50 05/02/19 24 05/02/2023 COMPL ETE CBC WITH DIFF HGB 13.1 gm/dL (11.7- 15.5) Not Available [facility] (Centralized Electronic Ordering - All Locations) Patient Can Go To The Location Of Their Choice, 05/02/2023 16:26:50 05/02/1905/02/2023 COMPL ETE CBC WITH DIFF HCT 39.0 % (35.7- 45.8) Not Available [facility] (Centralized Electronic Ordering - All Locations) Patient Can Go To The Location Of Their Choice, 05/02/2023 16:26:50 05/02/1905/02/2023 COMPL ETE CBC WITH DIFF MCV 92.4 fL (80.0- 100.0) Not Available [facility] (Centralized Electronic Ordering - All Locations) Patient Can Go To The Location Of Their Choice, 05/02/2023 16:26:50 05/02/1905/02/2023 COMPL ETE CBC WITH DIFF MCH 31.0 pg (27.0- 34.0) Not Available [facility] (Centralized Electronic Ordering - All Locations) Patient Can Go To The Location Of Their Choice, 05/02/2023 16:26:50 05/02/1905/02/2023 COMPL ETE CBC WITH DIFF MCHC 33.6 g/dL (33.0- 37.0) Not Available [facility] (Centralized Electronic Ordering - All Locations) Patient Can Go To The Location Of Their Choice, 05/02/2023 16:26:50 05/02/1905/02/2023 COMPL ETE CBC WITH DIFF plt 314 K/mm3 (150-4 60) Not Available [facility] (Centralized Electronic Ordering - All Locations) Patient Can Go To The Location Of Their Choice, 05/02/2023 16:26:50 05/02/19 24 05/02/2023 COMPL ETE CBC WITH DIFF RDW-SD 48.2 fL (<47.0 ) high Not Available [facility] (Centralized Electronic Ordering - All Locations) Patient Can Go To The Location Of Their Choice, 05/02/2023 16:26:50 05/02/19 24 05/02/2023 COMPL ETE CBC WITH DIFF MPV 11.0 fL (9.4-1 2.4) Not Available [facility] (Centralized Electronic Ordering - All Locations) Patient Can Go To The Location Of Their Choice, 05/02/2023 16:26:50 05/02/1905/02/2023 COMPL ETE CBC WITH DIFF automated NRBC 0.0 #/100 _WBC' s Not Available [facility] (Centralized Electronic Ordering - All Locations) Patient Can Go To The Location Of Their Choice, 05/02/2023 16:26:50 05/02/19 24 05/02/2023 COMPL ETE CBC WITH DIFF abs. NRBC 0.0 K/mm3 Not Available [facility] ([facility]ized Electronic Ordering - All Locations) Patient Can Go To The Location Of Their Choice, 05/02/2023 16:26:50 05/02/19 24 05/02/2023 COMPL ETE CBC WITH DIFF neut # 4.0 K/mm3 (1.3-7 .0) Not Available [facility] (Centralized Electronic Ordering - All Locations) Patient Can Go To The Location Of Their Choice, 05/02/2023 16:26:50 05/02/19 24 05/02/2023 COMPL ETE CBC WITH DIFF lymph # 1.2 K/mm3 (0.8-3 .1) Not Available [facility] (Centralized Electronic Ordering - All Locations) Patient Can Go To The Location Of Their Choice, 05/02/2023 16:26:50 05/02/19 24 05/02/2023 COMPL ETE CBC WITH DIFF mono# 0.4 K/mm3 (0.4-0 .9) Not Available [facility] (Centralized Electronic Ordering - All Locations) Patient Can Go To The Location Of Their Choice, 05/02/2023 16:26:50 05/02/1905/02/2023 COMPL ETE CBC WITH DIFF eo # 0.1 K/mm3 (0.0-0 .4) Not Available [facility] ([facility]ized Electronic Ordering - All Locations) Patient Can Go To The Location Of Their Choice, 05/02/2023 16:26:50 05/02/1905/02/2023 COMPL ETE CBC WITH DIFF baso # 0.1 K/mm3 (0.0-0 .1) Not Available [facility] ([facility]ized Electronic Ordering - All Locations) Patient Can Go To The Location Of Their Choice, 05/02/2023 16:26:50 05/02/1905/02/2023 COMPL ETE CBC WITH DIFF abs. imm gran 0.0 K/mm3 Not Available [facility] ([facility] Ordering - All Locations) Patient Can Go To The Location Of Their Choice, 05/02/2023 16:26:50 05/02/1905/02/2023 COMPL ETE CBC WITH DIFF neut 68.9 % (44-76 ) Not Available [facility] ([facility]ized Electronic Ordering - All Locations) Patient Can Go To The Location Of Their Choice, 05/02/2023 16:26:50 05/02/1905/02/2023 COMPL ETE CBC WITH DIFF lymph 21.2 % (15-43 ) Not Available [facility] ([facility]ized Electronic Ordering - All Locations) Patient Can Go To The Location Of Their Choice, 05/02/2023 16:26:50 05/02/1905/02/2023 COMPL ETE CBC WITH DIFF monocyte 6.9 % (4.5-1 0.5) Not Available [facility] ([facility]ized Electronic Ordering - All Locations) Patient Can Go To The Location Of Their Choice, 05/02/2023 16:26:50 05/02/1905/02/2023 COMPL ETE CBC WITH DIFF eo 1.7 % (0-6) Not Available [facility] ([facility] Electronic Ordering - All Locations) Patient Can Go To The Location Of Their Choice, 05/02/2023 16:26:50 05/02/19 24 05/02/2023 COMPL ETE CBC WITH DIFF baso 1.0 % (0-2) Not Available [facility] ([facility]ized Electronic Ordering - All Locations) Patient Can Go To The Location Of Their Choice, 05/02/2023 16:26:50 05/02/19 24 05/02/2023 COMPL ETE CBC WITH DIFF imm gran 0.3 % Not Available [facility] (Centralized Electronic Ordering - All Locations) Patient Can Go To The Location Of Their Choice, 05/02/2023 16:26:50 05/02/19 24 05/02/2023 COMPR EHENS DES METAB OLIC PANL glucose 98 mg/dL (70-99 ) Not Available [facility] (Centralized Electronic Ordering - All Locations) Patient Can Go To The Location Of Their Choice, 05/02/2023 19:17:14 05/02/1905/02/2023 COMPR EHENS DES METAB OLIC PANL BUN 24 mg/dL (8-23) high Not Available [facility] ([facility] Electronic Ordering - All Locations) Patient Can Go To The Location Of Their Choice, 05/02/2023 19:17:14 05/02/1905/02/2023 COMPR EHENS DES METAB OLIC PANL creatinine 0.8 mg/dL (0.5-1 .0) Not Available [facility] ([facility] Ordering - All Locations) Patient Can Go To The Location Of Their Choice, 05/02/2023 19:17:14 05/02/1905/02/2023 COMPR EHENS DES METAB OLIC PANL sodium 136 mmol/ L (133-1 45) Not Available [facility] ([facility] Electronic Ordering - All Locations) Patient Can Go To The Location Of Their Choice, 05/02/2023 19:17:14 05/02/1905/02/2023 COMPR EHENS DES METAB OLIC PANL potassium 4.5 mmol/ L (3.6-5 .2) Not Available [facility] ([facility] Electronic Ordering - All Locations) Patient Can Go To The Location Of Their Choice, 05/02/2023 19:17:14 05/02/19 24 05/02/2023 COMPR EHENS DES METAB OLIC PANL chloride 99 mmol/ L (98-10 7) Not Available [facility] ([facility] Electronic Ordering - All Locations) Patient Can Go To The Location Of Their Choice, 05/02/2023 19:17:14 05/02/1905/02/2023 COMPR EHENS DES METAB OLIC PANL bicarbonate 27 mmol/ L (22-29 ) Not Available [facility] (Centralized Electronic Ordering - All Locations) Patient Can Go To The Location Of Their Choice, 05/02/2023 19:17:14 05/02/1905/02/2023 COMPR EHENS DES METAB OLIC PANL anion gap 10 (4-17) Not Available [facility] ([facility] Ordering - All Locations) Patient Can Go To The Location Of Their Choice, 05/02/2023 19:17:14 05/02/1905/02/2023 COMPR EHENS DES METAB OLIC PANL albumin 4.3 gm/dL (3.4-4 .8) Not Available [facility] ([facility] Ordering - All Locations) Patient Can Go To The Location Of Their Choice, 05/02/2023 19:17:14 05/02/1905/02/2023 COMPR EHENS DES METAB OLIC PANL calcium 9.7 mg/dL (8.6-1 0.5) Not Available [facility] ([facility] Ordering - All Locations) Patient Can Go To The Location Of Their Choice, 05/02/2023 19:17:14 05/02/1905/02/2023 COMPR EHENS DES METAB OLIC PANL bilirubin,to antoni 0.4 mg/dL (0-1.2 ) Not Available [facility] ([facility] Ordering - All Locations) Patient Can Go To The Location Of Their Choice, 05/02/2023 19:17:14 05/02/1905/02/2023 COMPR EHENS DES METAB OLIC PANL total protein 6.6 gm/dL (6.2-8 .2) Not Available [facility] ([facility] Ordering - All Locations) Patient Can Go To The Location Of Their Choice, 05/02/2023 19:17:14 05/02/1905/02/2023 COMPR EHENS DES METAB OLIC PANL Ag ratio 1.9 Not Available [facility] ([facility]ized Electronic Ordering - All Locations) Patient Can Go To The Location Of Their Choice, 05/02/2023 19:17:14 05/02/19 24 05/02/2023 COMPR EHENS DES METAB OLIC PANL AST 18 U/L (0-32) Not Available [facility] ([facility] Electronic Ordering - All Locations) Patient Can Go To The Location Of Their Choice, 05/02/2023 19:17:14 05/02/19 24 05/02/2023 COMPR EHENS DES METAB OLIC PANL alk phos 104 U/L (35-10 4) Not Available [facility] ([facility] Ordering - All Locations) Patient Can Go To The Location Of Their Choice, 05/02/2023 19:17:14 05/02/19 24 05/02/2023 COMPR EHENS DES METAB OLIC PANL ALT 11 U/L (0-33) Not Available [facility] ([facility] Ordering - All Locations) Patient Can Go To The Location Of Their Choice, 05/02/2023 19:17:14 05/02/19 24 05/02/2023 COMPR EHENS DES METAB OLIC PANL estimated GFR creatinine 81 mL/mi n/1.7 3_M2 Creat inine based estim ated glome rular filtr ation (eGFR ) in adult s is calcu lated using the Natio nal Kidne y Found ation recom jyoti d 2020 CKD-E PI equat ion. Estim ates GFR from serum creat inine , age and sex. Not Available [facility] ([facility]ized [facility] Ordering - All Locations) Patient Can Go To The Location Of Their Choice, 05/02/2023 19:17:14 05/02/19 24 05/02/2023 LIPID PANEL cholesterol, total 306 mg/dL (<200) high Not Available [facility] ([facility] Order[facility] - All Locations) Patient Can Go To The Location Of Their Choice, 05/02/2023 19:17:15 05/02/19 24 05/02/2023 LIPID PANEL triglyceride 91 mg/dL (<150) Not Available [facility] ([facility] - [facility] Locations) Patient Can Go To The Location Of Their Choice, 05/02/2023 19:17:15 05/02/19 24 05/02/2023 LIPID PANEL HDL chol 78 mg/dL (>39) Not Available [facility] ([facility] Ordering - All Locations) Patient Can Go To The Location Of Their Choice, 05/02/2023 19:17:15 05/02/19 24 05/02/2023 LIPID PANEL LDL cholesterol, calculated 210 mg/dL (0-130 ) high Not Available [facility] ([facility] Ordering - All Locations) Patient Can Go To The Location Of Their Choice, 05/02/2023 19:17:15 05/02/19 24 05/02/2023 LIPID PANEL non HDL cholesterol (calc) 228 mg/dL (<160) high Not Available [facility] ([facility] Ordering - All Locations) Patient Can Go To The Location Of Their Choice, 05/02/2023 19:17:15 05/02/19 24 05/02/2023 FREE T4 free T4 1.33 NG/dL (0.70- 1.80) Not Available [facility] ([facility] Ordering - All Locations) Patient Can Go To The Location Of Their Choice, 05/02/2023 19:20:24 05/02/1905/02/2023 TSH TSH 2.31 uIU/m L (0.4-4 .2) Not Available [facility] ([facility] Ordering - All Locations) Patient Can Go To The Location Of Their Choice, 05/02/2023 19:20:28 05/02/1905/02/2023 OSMOL ALITY , SERUM osmolality, serum 295 mos/k g (280-2 90) high Not Available [facility] ([facility] Ordering - All Locations) Patient Can Go To The Location Of Their Choice, 05/02/2023 19:25:36 05/02/1905/02/2023 SODIU M, URINE MMOL/ L sodium, urine mmol/L 70 mmol/ L Not Available [facility] ([facility] Ordering - All Locations) Patient Can Go To The Location Of Their Choice, 05/02/2023 22:30:33 05/02/1905/02/2023 OSMOL ALITY , URINE RANDO M osmolality, urine random 426 mOsm/ kg (50-14 00) Not Available [facility] ([facility] Ordering - All Locations) Patient Can Go To The Location Of Their Choice, [id number] 05/02/2023 22:42:58 05/02/19 24 05/12/2023 VASOP RESSI N (ADH) vasopressin (adh) 0.8 Refer ence range : 0.0 to 4.7 Unit: pg/mL (NOTE ) This test was devel oped and its perfo rmanc e liz cteri stics deter mined by [facility] . It has not been clear ed or appro molly by the Food and Drug Admin istra tion. [facility] [place] , [address] [place] [address] , [place] [address] Not Available [facility] ([facility]ized Electronic Ordering - All Locations) Patient Can Go To The Location Of Their Choice, [id number] 05/12/2023 15:06:28 10/11/19 24 10/11/2023 CBC WITH DIFFE RENTI AL/PL ATELE T WBC 4.9 x10e3 /uL 3.4-10 .8 Not Available [facility] ([facility]) [address] [place], [address], 10/12/2023 14:06:47 10/11/19 24 10/11/2023 CBC WITH DIFFE RENTI AL/PL ATELE T RBC 4.44 x10e6 /uL 3.77-5 .28 Not Available [facility] ([facility]) [address] [place], [address], 10/12/2023 14:06:47 10/11/19 24 10/11/2023 CBC WITH DIFFE RENTI AL/PL ATELE T hemoglobin 13.8 g/dL 11.1-1 5.9 Not Available [facility] ([facility]) [address] [facility], [place], [address], 10/12/2023 14:06:47 10/11/19 24 10/11/2023 CBC WITH DIFFE RENTI AL/PL ATELE T hematocrit 41.6 % 34.0-4 6.6 Not Available [facility] ([facility]) [address] [facility], [place], [address], 10/12/2023 14:06:47 10/11/19 24 10/11/2023 CBC WITH DIFFE RENTI AL/PL ATELE T MCV 94 fL 79-97 Not Available [facility] ([facility]) [address] [facility], [place], [address], 10/12/2023 14:06:47 10/11/19 24 10/11/2023 CBC WITH DIFFE RENTI AL/PL ATELE T MCH 31.1 pg 26.6-3 3.0 Not Available [facility] ([facility]) [address] [facility], [place], [address], 10/12/2023 14:06:47 10/11/19 24 10/11/2023 CBC WITH DIFFE RENTI AL/PL ATELE T MCHC 33.2 g/dL 31.5-3 5.7 Not Available [facility] ([facility]) [address] [facility], [place], [address], 10/12/2023 14:06:47 10/11/19 24 10/11/2023 CBC WITH DIFFE RENTI AL/PL ATELE T RDW 13.4 % 11.7-1 5.4 Not Available [facility] ([facility]) [address] [facility], [place], [address], 10/12/2023 14:06:47 10/11/19 24 10/11/2023 CBC WITH DIFFE RENTI AL/PL ATELE T platelets 321 x10e3 /uL 150-45 0 Not Available [facility] ([facility]) [address] [facility], [place], [address], 10/12/2023 14:06:47 10/11/19 24 10/11/2023 CBC WITH DIFFE RENTI AL/PL ATELE T neutrophils 66 % not estab. Not Available [facility] ([facility]) [address] [place], [address], 10/12/2023 14:06:47 10/11/19 24 10/11/2023 CBC WITH DIFFE RENTI AL/PL ATELE T lymphs 24 % not estab. Not Available [facility] ([facility]) [address] [facility], [place], [address], 10/12/2023 14:06:47 10/11/19 24 10/11/2023 CBC WITH DIFFE RENTI AL/PL ATELE T monocytes 7 % not estab. Not Available [facility] ([facility]) [address] [facility], [place], [address], 10/12/2023 14:06:47 10/11/19 24 10/11/2023 CBC WITH DIFFE RENTI AL/PL ATELE T eos 2 % not estab. Not Available [facility] ([facility]) [address] [facility], [place], [address], 10/12/2023 14:06:47 10/11/19 24 10/11/2023 CBC WITH DIFFE RENTI AL/PL ATELE T basos 1 % not estab. Not Available [facility] ([facility]) [address] [facility], [place], [address], 10/12/2023 14:06:47 10/11/19 24 10/11/2023 CBC WITH DIFFE RENTI AL/PL ATELE T immature cells CHEMICAL WASTE MANAGEMENT TECHNICIAN Not Available [facility] ([facility]) [address] [facility], [place], [address], 10/12/2023 14:06:47 10/11/19 24 10/11/2023 CBC WITH DIFFE RENTI AL/PL ATELE T neutrophils (absolute) 3.2 x10e3 /uL 1.4-7. 0 Not Available [facility] ([facility]) [address] [facility], [place], [address], 10/12/2023 14:06:47 10/11/19 24 10/11/2023 CBC WITH DIFFE RENTI AL/PL ATELE T lymphs (absolute) 1.2 x10e3 /uL 0.7-3. 1 Not Available [facility] ([facility]) [address] [facility], [place], [address], 10/12/2023 14:06:47 10/11/19 24 10/11/2023 CBC WITH DIFFE RENTI AL/PL ATELE T monocytes(ab solute) 0.4 x10e3 /uL 0.1-0. 9 Not Available [facility] ([facility]) [address] [facility], [place], [address], 10/12/2023 14:06:47 10/11/19 24 10/11/2023 CBC WITH DIFFE RENTI AL/PL ATELE T eos (absolute) 0.1 x10e3 /uL 0.0-0. 4 Not Available [facility] ([facility]) [address] [facility], [place], [address], 10/12/2023 14:06:47 10/11/19 24 10/11/2023 CBC WITH DIFFE RENTI AL/PL ATELE T baso (absolute) 0.1 x10e3 /uL 0.0-0. 2 Not Available [facility] ([facility]) [address] [facility], [place], [address], 10/12/2023 14:06:47 10/11/19 24 10/11/2023 CBC WITH DIFFE RENTI AL/PL ATELE T immature granulocytes 0 % not estab. Not Available [facility] ([facility]) [address] [place], [address], 10/12/2023 14:06:47 10/11/19 24 10/11/2023 CBC WITH DIFFE RENTI AL/PL ATELE T immature grans (abs) 0.0 x10e3 /uL 0.0-0. 1 Not Available [facility] ([facility]) [address] [place], [address], 10/12/2023 14:06:47 10/11/19 24 10/11/2023 CBC WITH DIFFE RENTI AL/PL ATELE T NRBC CHEMICAL WASTE MANAGEMENT TECHNICIAN Not Available [facility] ([facility]) [address] [facility], [place], [address], 10/12/2023 14:06:47 10/11/19 24 10/11/2023 CBC WITH DIFFE RENTI AL/PL ATELE T hematology comments: CHEMICAL WASTE MANAGEMENT TECHNICIAN Not Available [facility] ([facility]) [address] [facility], [place], [address], 10/12/2023 14:06:47 10/11/19 24 10/12/2023 BASIC METAB OLIC PANEL (8) glucose 83 mg/dL 70-99 Not Available [facility] ([facility]) [address] [facility], [place], [address], 10/12/2023 14:06:48 10/11/19 24 10/12/2023 BASIC METAB OLIC PANEL (8) BUN 18 mg/dL 8-27 Not Available [facility] ([facility]) [address] [facility], [place], [address], 10/12/2023 14:06:48 10/11/19 24 10/12/2023 BASIC METAB OLIC PANEL (8) creatinine 0.76 mg/dL 0.57-1 .00 Not Available [facility] ([facility]) [address] [facility], [place], [address], 10/12/2023 14:06:48 10/11/19 24 10/12/2023 BASIC METAB OLIC PANEL (8) eGFR 82 mL/mi n/1.7 3 >59 Not Available [facility] ([facility]) [address] [facility], [place], [address], 10/12/2023 14:06:48 10/11/19 24 10/12/2023 BASIC METAB OLIC PANEL (8) BUN/creatini ne ratio 24 12-28 Not Available [facility] ([facility]) [address] [facility] [place], [address], 10/12/2023 14:06:48 10/11/19 24 10/12/2023 BASIC METAB OLIC PANEL (8) sodium 135 mmol/ L 134-14 4 Not Available [facility] ([facility]) [address] [facility] [place], [address], 10/12/2023 14:06:48 10/11/19 24 10/12/2023 BASIC METAB OLIC PANEL (8) potassium 4.8 mmol/ L 3.5-5. 2 Not Available [facility] ([facility]) [address] [facility] [place], [address], 10/12/2023 14:06:48 10/11/19 24 10/12/2023 BASIC METAB OLIC PANEL (8) chloride 96 mmol/ L 96-106 Not Available [facility] ([facility]) [address] [facility] [place], [address], 10/12/2023 14:06:48 10/11/19 24 10/12/2023 BASIC METAB OLIC PANEL (8) carbon dioxide, total 27 mmol/ L 20-29 Not Available [facility] ([facility]) [address] [facility] [place], [address], 10/12/2023 14:06:48 10/11/19 24 10/12/2023 BASIC METAB OLIC PANEL (8) calcium 9.4 mg/dL 8.7-10 .3 Not Available [facility] ([facility]) [address] [facility] [place], [address], 10/12/2023 14:06:48 10/11/19 24 10/12/2023 HEPAT IC FUNCT ION PANEL (7) protein, total 6.4 g/dL 6.0-8. 5 Not Available [facility] ([facility]) [address] [place], [address], 10/12/2023 14:06:49 10/11/19 24 10/12/2023 HEPAT IC FUNCT ION PANEL (7) albumin 4.3 g/dL 3.8-4. 8 Not Available [facility] ([facility]) [address] [facility] [place], [address], 10/12/2023 14:06:49 10/11/19 24 10/12/2023 HEPAT IC FUNCT ION PANEL (7) bilirubin, total 0.5 mg/dL 0.0-1. 2 Not Available [facility] ([facility]) [address] [facility] [place], [address], 10/12/2023 14:06:49 10/11/19 24 10/12/2023 HEPAT IC FUNCT ION PANEL (7) bilirubin, direct 0.17 mg/dL 0.00-0 .40 Not Available [facility] ([facility]) [address] [facility], [place], [address], 10/12/2023 14:06:49 10/11/19 24 10/12/2023 HEPAT IC FUNCT ION PANEL (7) alkaline phosphatase 69 IU/L 44-121 Not Available [facility] ([facility]) [address] [facility] [place], [address], 10/12/2023 14:06:49 10/11/19 24 10/12/2023 HEPAT IC FUNCT ION PANEL (7) AST (SGOT) 22 IU/L 0-40 Not Available [facility] ([facility]) [address] [place], [address], 10/12/2023 14:06:49 10/11/19 24 10/12/2023 HEPAT IC FUNCT ION PANEL (7) ALT (SGPT) 15 IU/L 0-32 Not Available [facility] ([facility]) [address] [place], [address], 10/12/2023 14:06:49 10/11/19 24 10/12/2023 LIPID PANEL cholesterol, total 196 mg/dL 100-19 9 Not Available [facility] ([facility]) [address] [place], [address], 10/12/2023 14:06:49 10/11/19 24 10/12/2023 LIPID PANEL triglyceride s 79 mg/dL 0-149 Not Available [facility] ([facility]) [address] [place], [address], 10/12/2023 14:06:49 10/11/19 24 10/12/2023 LIPID PANEL HDL cholesterol 84 mg/dL >39 Not Available [facility] ([facility]) [address] [place], [address], 10/12/2023 14:06:49 10/11/19 24 10/12/2023 LIPID PANEL VLDL cholesterol janeth 14 mg/dL 5-40 Not Available [facility] ([facility]) [address] [place], [address], 10/12/2023 14:06:49 10/11/19 24 10/12/2023 LIPID PANEL LDL chol calc ([email or web address] 98 mg/dL 0-99 Not Available [facility] ([facility]) [address] [place], [address], 10/12/2023 14:06:49 10/11/19 24 10/12/2023 LIPID PANEL LDL calc comment: CHEMICAL WASTE MANAGEMENT TECHNICIAN Not Available [facility] ([facility]) [address] [place], [address], 10/12/2023 14:06:49 10/11/19 24 10/12/2023 PTH INTAC T+JANETH CIUM, IONIZ ED calcium, ionized, serum 5.0 mg/dL 4.5-5. 6 Not Available [facility] ([facility]) [address] [place], [address], 10/12/2023 14:06:50 10/11/19 24 10/12/2023 PTH INTAC T+JANETH CIUMMARIA R ED PTH, intact 42 pg/mL 15-65 Not Available [facility] ([facility]) [address] [facility], [place], [address], 10/12/2023 14:06:50 10/11/19 24 10/12/2023 VITAM IN D, 25-HY DROXY vitamin D, 25-hydroxy 32.9 NG/mL 30.0-1 00.0 Vitam in D defic iency has been defin ed by the Insti tute of Medic ine and an Endoc rine Socie ty pract ice guide line as a level of serum 25-OH vitam in D less than 20 ng/mL (1,2) . The Endoc rine Socie ty went on to furth er defin e vitam in D insuf ficie ncy as a level betwe en 21 and 29 ng/mL (2). 1. IOM (Inst itute of Medic ine). 2010. Dieta ry refer ence intak es for calci um and D. [place]: [facility] . 2. Ondina marie [place], Akilah coronado [place], Dale off-F errar i PACK, et al. Evalu ation , treat ment, and preve ntion of vitam in D defic iency : an Endoc rine Socie ty clini janeth pract ice guide line. JCEM. 2010; 96(7) :1911 -30. Not Available [facility] ([facility]) [address] [facility], [place], [address], 10/12/2023 14:06:51 05/07/19 25 05/08/2024 CMP14 +EGFR glucose 86 mg/dL 70-99 normal Not Available [facility] ([facility]) [address] [facility], [place], [address], 05/08/2024 08:07:56 05/07/19 25 05/08/2024 CMP14 +EGFR BUN 16 mg/dL 8-27 normal Not Available [facility] ([facility]) [address] [facility], [place], [address], 05/08/2024 08:07:56 05/07/19 25 05/08/2024 CMP14 +EGFR creatinine 0.70 mg/dL 0.57-1 .00 normal Not Available [facility] [facility]) [address] [facility], [place], [address], 05/08/2024 08:07:56 05/07/19 25 05/08/2024 CMP14 +EGFR eGFR 90 mL/mi n/1.7 3 >59 normal Not Available [facility] ([facility]) [address] [facility], [place], [address], 05/08/2024 08:07:56 05/07/19 25 05/08/2024 CMP14 +EGFR BUN/creatini ne ratio 23 12-28 normal Not Available [facility] ([facility]) [address] [facility], [place], [address], 05/08/2024 08:07:56 05/07/19 25 05/08/2024 CMP14 +EGFR sodium 136 mmol/ L 134-14 4 normal Not Available [facility] ([facility]) [address] [facility], [place], [address], 05/08/2024 08:07:56 05/07/19 25 05/08/2024 CMP14 +EGFR potassium 4.4 mmol/ L 3.5-5. 2 normal Not Available [facility] ([facility]) [address] [facility] [place], [address], 05/08/2024 08:07:56 05/07/19 25 05/08/2024 CMP14 +EGFR chloride 96 mmol/ L 96-106 normal Not Available [facility] ([facility]) [address] [place], [address], 05/08/2024 08:07:56 05/07/19 25 05/08/2024 CMP14 +EGFR carbon dioxide, total 25 mmol/ L 20-29 normal Not Available [facility] ([facility]) [address] [facility] [place], [address], 05/08/2024 08:07:56 05/07/19 25 05/08/2024 CMP14 +EGFR calcium 9.7 mg/dL 8.7-10 .3 normal Not Available [facility] ([facility]) [address] [facility], [place], [address], 05/08/2024 08:07:56 05/07/1905/08/2024 CMP14 +EGFR protein, total 6.8 g/dL 6.0-8. 5 normal Not Available [facility] ([facility]) [address] [facility], [place], [address], 05/08/2024 08:07:56 05/07/19 25 05/08/2024 CMP14 +EGFR albumin 4.6 g/dL 3.8-4. 8 normal Not Available [facility] ([facility]) [address] [facility] [place], [address], 05/08/2024 08:07:56 05/07/19 25 05/08/2024 CMP14 +EGFR globulin, total 2.2 g/dL 1.5-4. 5 Not Available [facility] ([facility]) [address] [place], [address], 05/08/2024 08:07:56 05/07/1905/08/2024 CMP14 +EGFR bilirubin, total 0.6 mg/dL 0.0-1. 2 normal Not Available [facility] ([facility]) [address] [place], [address], 05/08/2024 08:07:56 05/07/19 25 05/08/2024 CMP14 +EGFR alkaline phosphatase 64 IU/L 44-121 normal Not Available [facility] ([facility]) [address] [place], [address], 05/08/2024 08:07:56 05/07/19 25 05/08/2024 CMP14 +EGFR AST (SGOT) 23 IU/L 0-40 normal Not Available [facility] ([facility]) [address] [place], [address], 05/08/2024 08:07:56 05/07/19 25 05/08/2024 CMP14 +EGFR ALT (SGPT) 18 IU/L 0-32 normal Not Available [facility] ([facility]) [address] [facility], [place], [address], 05/08/2024 08:07:56 05/07/19 25 05/08/2024 CHOL+ TRIG+ HDL+L DL-D cholesterol, total 187 mg/dL 100-19 9 normal Not Available [facility] ([facility]) [address] [place], [address], 05/08/2024 08:07:57 05/07/19 25 05/08/2024 CHOL+ TRIG+ HDL+L DL-D triglyceride s 104 mg/dL 0-149 normal Not Available [facility] ([facility]) [address] [place], [address], 05/08/2024 08:07:57 05/07/19 25 05/08/2024 CHOL+ TRIG+ HDL+L DL-D HDL cholesterol 84 mg/dL >39 normal Not Available [facility] ([facility]) [address] [place], [address], 05/08/2024 08:07:57 05/07/19 25 05/08/2024 CHOL+ TRIG+ HDL+L DL-D LDL chol. (direct) 88 mg/dL 0-99 Not Available [facility] ([facility]) [address] [place], [address], 05/08/2024 08:07:57 05/07/1905/08/2024 CHOL+ TRIG+ HDL+L DL-D LDL direct comment: CHEMICAL WASTE MANAGEMENT TECHNICIAN Not Available [facility] ([facility]) [address] [place], [address], 05/08/2024 08:07:57 05/07/19 25 05/08/2024 TSH+F REE T4 TSH 2.730 uIU/m L 0.450- 4.500 normal Not Available [facility] ([facility]) [address] [facility] [place], [address], 05/08/2024 08:07:58 05/07/1905/08/2024 TSH+F REE T4 T4,free(dire ct) 1.41 NG/dL 0.82-1 .77 normal Not Available [facility] ([facility]) [address] [place], [address], 05/08/2024 08:07:58 05/07/19 25 05/07/2024 CBC WITH DIFFE RENTI AL/PL ATELE T WBC 5.3 x10e3 /uL 3.4-10 .8 normal Not Available [facility] ([facility]) [address] [place], [address], 05/08/2024 08:07:59 05/07/19 25 05/07/2024 CBC WITH DIFFE RENTI AL/PL ATELE T RBC 4.48 x10e6 /uL 3.77-5 .28 normal Not Available [facility] ([facility]) [address] [place], [address], 05/08/2024 08:07:59 05/07/1905/07/2024 CBC WITH DIFFE RENTI AL/PL ATELE T hemoglobin 14.3 g/dL 11.1-1 5.9 normal Not Available [facility] ([facility]) [address] [place], [address], 05/08/2024 08:07:59 05/07/19 25 05/07/2024 CBC WITH DIFFE RENTI AL/PL ATELE T hematocrit 42.4 % 34.0-4 6.6 normal Not Available [facility] ([facility]) [address] [place], [address], 05/08/2024 08:07:59 05/07/19 25 05/07/2024 CBC WITH DIFFE RENTI AL/PL ATELE T MCV 95 fL 79-97 normal Not Available [facility] ([facility]) [address] [place], [address], 05/08/2024 08:07:59 05/07/19 25 05/07/2024 CBC WITH DIFFE RENTI AL/PL ATELE T MCH 31.9 pg 26.6-3 3.0 normal Not Available [facility] ([facility]) [address] [place], [address], 05/08/2024 08:07:59 05/07/19 25 05/07/2024 CBC WITH DIFFE RENTI AL/PL ATELE T MCHC 33.7 g/dL 31.5-3 5.7 normal Not Available [facility] ([facility]) [address] [place], [address], 05/08/2024 08:07:59 05/07/19 25 05/07/2024 CBC WITH DIFFE RENTI AL/PL ATELE T RDW 12.6 % 11.7-1 5.4 Not Available [facility] ([facility]) [address] [place], [address], 05/08/2024 08:07:59 05/07/19 25 05/07/2024 CBC WITH DIFFE RENTI AL/PL ATELE T platelets 318 x10e3 /uL 150-45 0 normal Not Available [facility] ([facility]) [address] [place], [address], 05/08/2024 08:07:59 02/11/20 25 05/07/2024 CBC WITH DIFFE RENTI AL/PL ATELE T neutrophils 63 % not estab. normal Not Available [facility] ([facility]) [address] [facility], [place], [address], 05/08/2024 08:07:59 05/07/19 25 05/07/2024 CBC WITH DIFFE RENTI AL/PL ATELE T lymphs 26 % not estab. normal Not Available [facility] ([facility]) [address] [facility], [place], [address], 05/08/2024 08:07:59 05/07/19 25 05/07/2024 CBC WITH DIFFE RENTI AL/PL ATELE T monocytes 8 % not estab. normal Not Available [facility] ([facility]) [address] [facility], [place], [address], 05/08/2024 08:07:59 05/07/19 25 05/07/2024 CBC WITH DIFFE RENTI AL/PL ATELE T eos 2 % not estab. normal Not Available [facility] ([facility]) [address] [facility], [place], [address], 05/08/2024 08:07:59 05/07/19 25 05/07/2024 CBC WITH DIFFE RENTI AL/PL ATELE T basos 1 % not estab. normal Not Available [facility] ([facility]) [address] [facility], [place], [address], 05/08/2024 08:07:59 05/07/19 25 05/07/2024 CBC WITH DIFFE RENTI AL/PL ATELE T immature cells CHEMICAL WASTE MANAGEMENT TECHNICIAN Not Available [facility] ([facility]) [address] [facility], [place], [address], 05/08/2024 08:07:59 05/07/19 25 05/07/2024 CBC WITH DIFFE RENTI AL/PL ATELE T neutrophils (absolute) 3.3 x10e3 /uL 1.4-7. 0 normal Not Available [facility] ([facility]) [address] [facility], [place], [address], 05/08/2024 08:07:59 05/07/19 25 05/07/2024 CBC WITH DIFFE RENTI AL/PL ATELE T lymphs (absolute) 1.4 x10e3 /uL 0.7-3. 1 normal Not Available [facility] ([facility]) [address] [facility], [place], [address], 05/08/2024 08:07:59 05/07/19 25 05/07/2024 CBC WITH DIFFE RENTI AL/PL ATELE T monocytes(ab solute) 0.4 x10e3 /uL 0.1-0. 9 normal Not Available [facility] ([facility]) [address] [facility], [place], [address], 05/08/2024 08:07:59 05/07/19 25 05/07/2024 CBC WITH DIFFE RENTI AL/PL ATELE T eos (absolute) 0.1 x10e3 /uL 0.0-0. 4 normal Not Available [facility] ([facility]) [address] [facility], [place], [address], 05/08/2024 08:07:59 05/07/19 25 05/07/2024 CBC WITH DIFFE RENTI AL/PL ATELE T baso (absolute) 0.0 x10e3 /uL 0.0-0. 2 normal Not Available [facility] ([facility]) [address] [facility], [place], [address], 05/08/2024 08:07:59 05/07/19 25 05/07/2024 CBC WITH DIFFE RENTI AL/PL ATELE T immature granulocytes 0 % not estab. Not Available [facility] ([facility]) [address] [facility], [place], [address], 05/08/2024 08:07:59 05/07/19 25 05/07/2024 CBC WITH DIFFE RENTI AL/PL ATELE T immature grans (abs) 0.0 x10e3 /uL 0.0-0. 1 Not Available [facility] ([facility]) [address] [facility], [place], [address], 05/08/2024 08:07:59 05/07/19 25 05/07/2024 CBC WITH DIFFE RENTI AL/PL ATELE T NRBC CHEMICAL WASTE MANAGEMENT TECHNICIAN Not Available [facility] ([facility]) [address] [facility], [place], [address], 05/08/2024 08:07:59 05/07/19 25 05/07/2024 CBC WITH DIFFE RENTI AL/PL ATELE T hematology comments: CHEMICAL WASTE MANAGEMENT TECHNICIAN Not Available [facility] ([facility]) [address] [facility], [place], [address], 05/08/2024 08:07:59 10/21/19 23 10/20/2022 CT, head + brain , w/o contr ast CT Head/B rain W/O Contra st INDICA TION: R41.3 AMNESI A. TECHNI QUE: Noncon trast head CT using axial techni que and recons tructe d in axial and esqueda l planes . Iterat des recons tructi on techni ques are used to optimi ze dose and image qualit y. CTDIvo l Head: 60.14 mGy, DLP Head: 974 mGy*cm . COMPAR LOTUS: Head CT dated 2019. FINDIN GS: Personnel Worker view findin gs, lines and tubes: None. BRAIN AND EXTRA- AXIAL SPACES : No parenc hymal hemorr leah, midlin e shift, or mass effect . Jensen-w radha matter differ entiat ion is well preser molly. No acute infarc t. Mild promin ence of the ventri cles and sulci consis tent with parenc hymal volume loss. Mild low-de nsity white matter change s. No subara chnoid hemorr leah. No subdur al or epidur al collec tion. CALVAR IUM, SKULL BASE, AND SOFT TISSUE S: No fractu res or suspic ious bony lesion s. The parana kory sinuse s and mastoi d air cells are clear. Visual ized orbits and globes are intact . The extrac ranial soft tissue s are unrema rkable . IMPRES DRAGAN: No acute intrac ranial pathol ogy. WSN: [id number] Orderi ng Physic shirley: Raymond AGUILAR, Luna Mishra Dictat ed By: Rachell Davila ra, MD Dictat ed Date/T jean claude: 10:53 a Review ed By: Rachell Davila ra, MD Signed By: Rachell Davila ra, MD Signed Date/T jean claude: 10:53 am Transc ribed By: EDNA Transc ribed Date/T jean claude: 10:48 am Ever t Class: Outpat ient [facility] (Outpt Imaging) [address] [place], [address], 10/20/2022 16:44:22 02/21/20 23 02/20/2023 MAMMO , scree michael, digit al, bilat eral PROCED URE: MM Digita l Mammo Screen ing INDICA TION: Screen ing for breast cancer . No known palpab le abnorm alitie s. COMPAR LOTUS: Prior mammog gerard most recent ly dated 2021. TECHNI QUE: Full-f ield digita l CC and MLO 3D tomosy nthesi s images of both breast s were acquir ed. Comput er-aid ed detect ion (CAD) was utiliz ed in the interp retati on of this study. DENSIT Y: The breast tissue contai ns scatte red areas of fibrog landul ar densit y. FINDIN GS: No suspic ious masses , suspic ious microc alcifi cation s, or areas of maday ectura l distor tion are seen in either breast to sugges t malign eric. IMPRES DRAGAN: No mammog raphic eviden ce of malign eric. RECOMM ENDATI ON: Annual mammog raphic screen ing BI-RAD S: 1 (Negat des) Lay letter mailed to ever crowe WSN: [id number] Order ng Physic shirley: Raymond AGUILAR, Luna Mishra Dictat ed By: Radha Jones MD Dictat ed Date/T jean claude: 1:07 pm Review ed By: Radha Jones MD Signed By: Radha Jones MD Signed Date/T jean claude: 1:07 pm Transc ribed By: CSB Transc riptio n Date/T jean claude: 12:57 pm Birads : Ever t Class: Outpat ient [id number] [facility] (Outpt Imaging) [address] [facility], [place], [address], 02/20/2023 13:18:13 05/31/19 24 05/26/2023 DEXA, axial skele ton Name:Ricky crowe ID: [id number] Age:72 years Sex:Fe male Ethnic ity:Wh ite Date of : [birth year] Reason : M81.0 OSTEOP OROSIS ; Clinic al Questi on(s): Other: Referr ing Provid er:Percy Andrade Study: Dexa Bone Densit y (Axial ) Bone Densit y: Region BMD T-Scor e Z-Scor e Classi ficati on AP Spine 0.966 -0.7 1.6 Normal TOTAL HIP 0.611 -2.7 -1.0 Osteop orosis FEM NECK 0.551 -2.7 -0.6 Osteop orosis 10-yea r Fractu re Risk: Fractu re Risk Not Report ed: FRAX not report ed becaus e: Some T-scor e for Spine Total or Hip Total or Femora l Neck at or below -2.5 Prior hip or verteb ral fractu re RATE OF CHANGE (SPINE ): BMD values have increa sed 17.4% from previo us BMD values have increa sed 16.0% from baseli ne RATE OF CHANGE (TOTAL HIP): BMD values have decrea sed 20.9% from baseli ne RATE OF CHANGE (FEMOR AL NECK): BMD values have increa sed 8.2% from previo us BMD values have decrea sed in 19.7% from baseli ne Impres dragan: The patien t has osteop orosis as determ ined by WHO criter ia. WSN: [id number] Orderi ng Physic shirley: Luna Andrade Dictat ed By: Johnathon Evans rd, Jr, MD Dictat ed Date/T jean claude: 11:26 a Review ed By: Johnathon Evans rd, Jr, MD Signed By: Johnathon Evans rd, Jr, MD Signed Date/T jean claude: 11:26 am Transc ribed By: CSB Transc ribed Date/T jean claude: 11:24 am Patien t Class: Outpat ient [facility] (Outpt Imaging) [address] [place] [address], [address], 06/01/2023 23:36:32 Result Notes None recorded. Problems Name Problem SNOMED Code Status Onset Date Resolution Date Notes Provider Name and Address Organization Details Recorded Time Acute upper respirat ory infectio n 55448059 Completed 201210/08/2013 RECORDED 08/01/19 13 9:13AM BY MISBAH BELLO ON/ADDEN DUM Not Available [facility] 4 15:04:18 Allergic rhinitis 19386138 Active 2012 KATARZYNA Christensen, [facility] 6 09:53:51 Adult health examinat ion Completed 201210/08/2013 RECORDED 03/04/20 13 9:27AM BY CONNIE WADE MA, ANNOTATI ON/ADDEN DUM Yuridia Andrade, [facility] [address] [facility] [address], [place], [address] , [facility] 0 11:44:17 Anxiety state 940124672 Active 2012 KATARZYNA Christensen, [facility] 6 09:53:32 Benign paroxysm al position al vertigo 376043223 Completed 200610/08/2013 RESOLVED DATE: 08/25/19 07; IMPRESSI ON: SUCCESSF UL TREATMEN T WITH PT; RECORDED 08/25/19 07 8:40AM BY PRASANNA ABEBE MD, OFFICE VISIT Not Available [facility] 4 15:04:19 Screenin g for malignan t neoplasm of breast Completed 200810/08/2013 RECORDED 01/29/20 09 2:16PM BY CONNIE WADE MA, MISBAH ON/ADDEN DUM Not Available [facility] 4 15:04:19 Disorder of bursa of shoulder region 22016994 Active 2012 KATARZYNA Christensen [facility] 6 09:53:46 Carpal tunnel syndrome 58698034 Completed 201210/08/2013 RECORDED 08/01/19 13 9:13AM BY MISBAH BELLO ON/ADDEN DUM Not Available [facility] 4 15:04:19 Contact dermatit is due to plants, except food Completed 201210/08/2013 RECORDED 08/01/19 13 9:13AM BY KARLA BELLOATI ON/ADDEN DUM Not Available [facility] 4 15:04:19 Contusio n of ankle 06227037 Completed 201210/08/2013 RECORDED 08/01/19 13 9:13AM BY KARLA BELLOATI ON/ADDEN DUM Not Available [facility] 4 15:04:19 Degenera tion of interver tebral disc 22220709 Completed 200710/08/2013 RECORDED 01/09/20 08 9:47AM BY MISBAH PINEDA ON/ADDEN DUM Not Available [facility] 4 15:04:19 Malaise and fatigue 072017942 Completed 200710/08/2013 RECORDED 01/09/20 08 9:47AM BY MISBAH PINEDA ON/ADDEN DUM Not Available [facility] 4 15:04:20 Influenz a vaccine needed 73971793836 06 Completed 201110/08/2013 RECORDED 02/28/20 12 9:59AM BY CORIE ROMO MA, NURSE VISIT Not Available [facility] 4 15:04:20 Tobacco user 321879229 Completed 201211/10/2015 Removal Reason: quit KATARZYNA Christensen, [facility] 6 09:54:15 Hyperlip idemia 58422434 Active 2012 KATARZYNA Christensen, [facility] 6 09:53:44 [facility] hyperten dragan 79406745 Active 2012 KATARZYNA Christensen, [facility] 6 09:53:49 Essentia l hyperten dragan 16884104 Completed 201210/08/2013 RECORDED 04/20/19 13 1:24AM BY CONNIE WADE MA, ANNOTATI ON/ADDEN DUM KATARZYNA Christensen, [facility] 6 09:53:49 Irritabl e bowel syndrome 40189007 Active 2012 KATARZYNA Christensen, [facility] 6 09:53:25 Irritabl e bowel syndrome 79474639 Completed 201210/08/2013 RECORDED 04/20/19 13 1:24AM BY CONNIE WADE MA, ANNOTATI ON/ADDEN DUM KATARZYNA Christensen, [facility] 6 09:53:25 Disorder of upper respirat ory system 201202975 Completed 201210/08/2013 RECORDED 08/01/19 13 9:12AM BY NEVAEH TOLLIVER I, ANNOTATI ON/ADDEN DUM Not Available [facility] 4 15:04:20 Administ ration of bacteria l and viral vaccine Completed 200710/08/2013 RECORDED 01/09/20 08 1:58PM BY CONNIE WADE MA, OFFICE VISIT Not Available [facility] 4 15:04:20 Osteoart hritis of knee 784286317 Active 2012 IMPRESSI ON: BILATERA L RIGHT > LEFT KATARZYNA Christensen, [facility] 6 09:53:36 Disorder of bone and articula r cartilag e 113035545 Active 2012 KATARZYNA Christensen, [facility] 6 09:53:38 Inflamma tory disorder of extremit y 112986346 Completed 201210/08/2013 RECORDED 08/01/19 13 9:12AM BY KARLA BELLOATI ON/ADDEN DUM Not Available [facility] 4 15:04:21 Screenin g for malignan t neoplasm of colon Completed 201210/08/2013 RECORDED 08/01/19 13 9:13AM BY NEVAEH TOLLIVER I ANNOTATI ON/ADDEN DUM Not Available [facility] 4 15:04:21 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 KATARZYNA Christensen, [facility] 6 09:53:41 Acute upper respirat ory infectio n 83521939 Completed 201210/31/2013 RECORDED 08/01/19 13 9:13AM BY KARLA BELLOATI ON/ADDEN DUM Not Available [facility] 4 13:11:11 Adult health examinat ion Completed 201210/31/2013 RECORDED 03/04/20 13 9:27AM BY CONNIE WADE MA, ANNOTATI ON/ADDEN DUM Yuridia Andrade, [facility] [address], [place], [address] , [facility] 0 11:44:17 Benign paroxysm al position al vertigo 316401207 Completed 200610/31/2013 RESOLVED DATE: 08/25/19 07; IMPRESSI ON: SUCCESSF UL TREATMEN T WITH PT; RECORDED 08/25/19 07 8:40AM BY PRASANNA ABEBE MD, OFFICE VISIT Not Available [facility] 4 13:11:11 Screenin g for malignan t neoplasm of breast Completed 200810/31/2013 RECORDED 01/29/20 09 2:16PM BY CONNIE WADE MA, KARLAATI ON/ADDEN DUM Not Available [facility] 4 13:11:11 Carpal tunnel syndrome 52918212 Completed 201210/31/2013 RECORDED 08/01/19 13 9:13AM BY NEVAEH TOLLIVER I ANNOTATI ON/ADDEN DUM Not Available [facility] 4 13:11:11 Contact dermatit is due to plants, except food Completed 201210/31/2013 RECORDED 08/01/19 13 9:13AM BY NEVAEH TOLLIVER I ANNOTATI ON/ADDEN DUM Not Available [facility] 4 13:11:11 Contusio n of ankle 59811133 Completed 201210/31/2013 RECORDED 08/01/19 13 9:13AM BY NEVAEH TOLLIVER I, ANNOTATI ON/ADDEN DUM Not Available [facility] 4 13:11:11 Degenera tion of interver tebral disc 40455164 Completed 200710/31/2013 RECORDED 01/09/20 08 9:47AM BY KARLA PINEDAATI ON/ADDEN DUM Not Available [facility] 4 13:11:11 Malaise and fatigue 239832483 Completed 200710/31/2013 RECORDED 01/09/20 08 9:47AM BY KARLA PINEDAATI ON/ADDEN DUM Not Available [facility] 4 13:11:11 Influenz a vaccine needed 98899628367 06 Completed 201110/31/2013 RECORDED 02/28/20 12 9:59AM BY CORIE ROMO MA, NURSE VISIT Not Available [facility] 4 13:11:11 Disorder of upper respirat ory system 937269309 Completed 201210/31/2013 RECORDED 08/01/19 13 9:12AM BY NEVAEH TOLLIVER I, ANNOTATI ON/ADDEN DUM Not Available [facility] 4 13:11:12 Administ ration of bacteria l and viral vaccine Completed 200710/31/2013 RECORDED 01/09/20 08 1:58PM BY CONNIE WADE MA, OFFICE VISIT Not Available [facility] 4 13:11:12 Inflamma tory disorder of extremit y 003879600 Completed 201210/31/2013 RECORDED 08/01/19 13 9:12AM BY NEVAEH TOLLIVER I, KARLAATI ON/ADDEN DUM Not Available [facility] 4 13:11:12 Screenin g for malignan t neoplasm of colon Completed 201210/31/2013 RECORDED 08/01/19 13 9:13AM BY NEVAEH TOLLIVER I, ANNOTATI ON/ADDEN DUM Not Available [facility] 4 13:11:12 Acute upper respirat ory infectio n 99681840 Completed 201211/01/2013 RECORDED 08/01/19 13 9:13AM BY NEVAEH TOLLIVER I, ANNOTATI ON/ADDEN DUM Not Available [facility] 4 03:54:06 Adult health examinat ion Completed 201211/01/2013 RECORDED 03/04/20 13 9:27AM BY CONNIE WADE MA, ANNOTATI ON/ADDEN DUM Yuridia Andrade, [facility] [address], [place], [address] , [facility] 0 11:44:17 Benign paroxysm al position al vertigo 808144479 Completed 200611/01/2013 RESOLVED DATE: 08/25/19 07; IMPRESSI ON: SUCCESSF UL TREATMEN T WITH PT; RECORDED 08/25/19 07 8:40AM BY PRASANNA ABEBE MD, OFFICE VISIT Not Available [facility] 4 03:54:06 Screenin g for malignan t neoplasm of breast Completed 200811/01/2013 RECORDED 01/29/20 09 2:16PM BY CONNIE WADE MA, ANNOTATI ON/ADDEN DUM Not Available [facility] 4 03:54:06 Carpal tunnel syndrome 19296862 Completed 201211/01/2013 RECORDED 08/01/19 13 9:13AM BY NEVAEH TOLLIVER I, ANNOTATI ON/ADDEN DUM Not Available [facility] 4 03:54:06 Contact dermatit is due to plants, except food Completed 201211/01/2013 RECORDED 08/01/19 13 9:13AM BY NEVAEH TOLLIVER I ANNOTATI ON/ADDEN DUM Not Available [facility] 4 03:54:06 Contusio n of ankle 58749435 Completed 201211/01/2013 RECORDED 08/01/19 13 9:13AM BY NEVAEH TOLLIVER I, ANNOTATI ON/ADDEN DUM Not Available [facility] 4 03:54:06 Degenera tion of interver tebral disc 89003772 Completed 200711/01/2013 RECORDED 01/09/20 08 9:47AM BY BAMBI FUENTES, KARLAATI ON/ADDEN DUM Not Available [facility] 4 03:54:06 Malaise and fatigue 690219533 Completed 200711/01/2013 RECORDED 01/09/20 08 9:47AM BY BAMBI FUENTES, KARLAATI ON/ADDEN DUM Not Available [facility] 4 03:54:06 Influenz a vaccine needed 07561399128 06 Completed 201111/01/2013 RECORDED 02/28/20 12 9:59AM BY CORIE ROMO MA, NURSE VISIT Not Available [facility] 4 03:54:06 Disorder of upper respirat ory system 812003167 Completed 201211/01/2013 RECORDED 08/01/19 13 9:12AM BY NEVAEH TOLLIVER I ANNOTATI ON/ADDEN DUM Not Available [facility] 4 03:54:06 Administ ration of bacteria l and viral vaccine Completed 200711/01/2013 RECORDED 01/09/20 08 1:58PM BY CONNIE WADE MA, OFFICE VISIT Not Available [facility] 4 03:54:06 Inflamma tory disorder of extremit y 756606919 Completed 201211/01/2013 RECORDED 08/01/19 13 9:12AM BY NEVAEH TOLLIVER I, ANNOTATI ON/ADDEN DUM Not Available [facility] 4 03:54:06 Screenin g for malignan t neoplasm of colon Completed 201211/01/2013 RECORDED 08/01/19 13 9:13AM BY NEVAEH TOLLIVER I, ANNOTATI ON/ADDEN DUM Not Available [facility] 4 03:54:06 Fatigue 49920478 Completed 08/03/2016 Yuridia Andrade, [facility] [address] [facility] [address], [place], [address] , [facility] 2 12:43:07 Acute sinusiti s 03719713 Completed 08/03/2016 Deanna greene, [facility] 7 09:19:24 Carpal tunnel syndrome 27676646 Active JC Parker [address] [facility] [address], [place], [address] , [facility] 5 10:29:29 Ex-smoke r 9893997 Active 2015 KATARZYNA Christensen, [facility] 6 09:54:21 Bursitis of hip 06659786 Active 2016 KATARZYNA Christensen, [facility] 7 09:27:27 Osteopen ia 208071961 Active 2006 KATARZYNA Christensen, [facility] 7 10:42:28 Total hysterec ashley Active Connie jones, KATARZYNA null, [facility] 9 11:24:24 Adult health examinat ion Active 2019 RECORDED 03/04/20 13 9:27AM BY CONNIE WADE MA, ANNOTATI ON/ADDEN DUM Yuridia Andrade, [facility] [address] [address], [place], [address] , [facility] 0 11:44:17 Headache 11611477 Active 2019 Yuridia Andrade, [address] [address], [place], [address] , [facility] 0 11:52:48 Rib pain 709447743 Active 2021 [facility] Andrade [facility] [address] [place] [address], [place], [address] , [facility] 2 12:43:07 Disorder of musculos keletal system 167219 Active 2021 Yuridia Andrade [facility] [address] [place] [address], [place], [address] , [facility] 2 12:43:07 Thoracic back pain 946138047 Active 2021 Yuridia Andrade [facility] [address], [place], [address] , [facility] 2 12:43:07 Fatigue 87631552 Active 2021 Yuridia Andrade [facility] [address] [place] [address], [place], [address] , [facility] 2 12:43:07 Osteopor osis 63894755 Active 2021 Yuridia Andrade [facility] [address] [place] [address], [place], [address] , [facility] 2 14:38:00 Pain of right shoulder joint [id number] 967984 Active 2021 Yuridia Andrade, [facility] [address] [facility] [address], [place], [address] , [facility] 2 15:03:17 Compress ion fracture of lumbar spine 593267647 Active 2022 Nitish Santamaria PA-C [address] [facility] [address], [place], [address] , [facility] 3 20:58:58 Altered mental status 139318231 Active 2022 Yuridia Andrade [facility] [address] [facility] [address], [place], [address] , [facility] 3 09:05:04 Urinary tract infectio us disease 63462277 Active 2022 Yuridia Andrade [facility] [address] [facility] [address], [place], [address] , [facility] 3 09:05:39 Anemia 483443736 Active 2022 Yuridia Andrade [facility] [address] [facility] [address], [place], [address] , [facility] 3 09:06:01 Vitamin D deficien cy 79832239 Active 2022 Yuridia Andrade [facility] [address] [facility] [address], [place], [address] , [facility] 3 09:06:18 Compress ion fracture of vertebra l column 37203818 Active 2022 Yuridia Andrade [facility] [address] [facility] [address], [place], [address] , [facility] 3 11:16:14 Increase d frequenc y of urinatio n 440266595 Active 2022 Yuridia Andrade, [facility] [address] [facility] [address], [place], [address] , [facility] 3 11:54:57 Hyponatr emia 19382669 Active 2022 Yuridia Andrade, [facility] [address] [facility] [address], [place], [address] , [facility] 3 09:57:29 Memory impairme nt 833481381 Active 2022 Yuridia Andrade, [facility] [address] [facility] [address], [place], [address] , [facility] 3 10:12:02 Alzheime r's disease 09855891 Active 2023 Yuridia Andrade, [facility] [address] [facility] [address], [place], [address] , [facility] 4 11:06:27 Problem Notes None recorded. Procedures Surgical History Date Name Laterality Status Provider Name and Address Organization Details Recorded Time 02/21/20 23 Most Recent Mammogram completed Alicia Viramontes [facility] 02/20/2023 13:18:10 02/17/20 21 Mammogram screening completed Trini Nettles [facility] 03/18/2021 11:51:26 03/03/20 20 Six-Item Cognitive Test completed Riri Plata [facility] 03/03/2020 11:28:47 03/01/20 19 Mini-Cog Test completed Connie rivers MA [facility] 03/01/2019 11:29:05 02/28/20 18 Mini-Cog Test completed Connie rivers MA [facility] 02/27/2018 13:43:46 02/08/20 17 Fall Risk Assessment completed Connie rivers MA [facility] 02/07/2017 10:55:09 02/08/20 17 Mini-Cog Test completed Connie irvers MA [facility] 02/07/2017 10:55:55 01/24/20 17 Mammogram one breast completed Barb Suarez [facility] 02/08/2017 10:46:32 11/09/19 17 Date of Last Pap Smear completed Connie rivers MA [facility] 02/07/2017 10:40:27 11/10/19 16 Fall Risk Assessment completed Connie rivers MA [facility] 11/10/2015 10:13:10 11/10/19 16 Mini-Cog Test completed Connie rivers MA [facility] 11/10/2015 10:14:21 09/25/19 15 Carpal tunnel surgery completed Connie rivers MA [facility] 11/10/2015 10:08:06 08/29/19 15 Carpal tunnel surgery completed Connie rivers MA [facility] 11/10/2015 10:07:55 08/20/19 15 Colonoscopy completed Connie rivers MA [facility] 11/10/2015 09:55:39 08/15/19 15 Date of Last Colonoscopy completed Connie rivers MA [facility] 08/15/2014 13:01:24 02/08/20 14 Fall Risk Assessment completed Connie rivers MA [facility] 02/07/2014 10:51:30 02/08/20 14 Mini-Cog Test completed Connie rivers MA [facility] 02/07/2014 10:53:42 11/15/19 07 Most Recent Bone Density completed Connie rivers MA [facility] 03/01/2019 11:14:30 11/15/19 07 Dxa bone density geoffrey vrt fx completed Connie rivers MA [facility] 03/01/2019 11:14:24 03/27/18 78 Total Abdominal Hysterectomy completed Connie rivers MA [facility] 11/10/2015 09:54:53 Tubal Ligation completed Connie rivers MA [facility] 08/15/2014 13:00:33 Breast Biopsy completed Connie rivers MA [facility] 08/15/2014 13:00:33 Tonsillectomy completed Connie rivers MA [facility] 11/05/2013 12:57:25 Total hysterectomy completed Connie rivers MA [facility] 03/01/2019 11:24:10 Hysterectomy completed Yessica Villatoro MA [facility] 03/04/2021 09:16:42 Imaging Results Imaging Date Name Status LastModified by Organiz ation Details LastModified Time 10/20/2022 CT, head + brain, w/o contrast completed [facility] ([facility]) [address] [place], [address], 10/20/2022 16:44:22 02/20/2023 MAMMO, screening, digital, bilateral completed [email or web address] (Outpt Imaging) [address] [place], [address], 02/20/2023 13:18:13 05/26/2023 DEXA, axial skeleton completed [facility] (Outpt Imaging) [address] [place], [address], 06/01/2023 23:36:32 Procedure Notes None recorded. Medical Equipment None Reported. Allergies Allergen ID Allergen Name Allergen Category Reaction Reaction Severity Criticality Documentation Date Start Date Code Code System Note Provider Name and Address Organization Details Recorded Time 3666 amoxicill in trihydrat e medicatio n rash Not available Not available 10/08/20132012 08953 8 RxNorm KATARZYNA Cross [facility] 2 14:02:28 3667 ibuprofen medicatio n rash Not available Not available 10/08/20132012 5640 RxNorm KATARZYNA Guevara, [facility] 1 09:26:58 Medications Name Sig Start Date Stop Date Status Note LastModified by Organization Details LastModified Time lisinopri l 10 mg tabs 03/03 completed Not Available Not Available Not Available multivita min tablet Take 1 tablet every day by oral route. active Not Available Not Available No t Available prednison e 10 mg tablet DAILY 09/29 completed RECORDED 12/29/19 13 8:12AM BY PRASANNA ABEBE MD, MEDICATI ON AUTO-MEHNAZ CTIVATIO N; Not Available Not Available Not Available donepezil 5 mg tablet 04/09 completed Not Available Not Available Not Available ketoconaz ole 2 % shampoo Apply by topical route for 30 days. 11/09 completed Not Available Not Available Not Available cetirizin e 10 mg tablet DAILY 2011 active RECORDED 08/01/19 13 9:13AM BY NEVAEH TOLLIVER I, OFFICE VISIT; Not Available Not Available Not Available hydrocort isone valerate 0.2 % topical cream APPLY TOPICALL Y SPARINGL Y AA BID 03/04 completed Not Available Not Available Not Available clarithro mycin 500 mg tablet Take 1 tablet twice a day by oral route for 10 days. 02/17 completed Not Available Not Available Not Available donepezil 10 mg tablet TAKE 1 TABLET BY MOUTH EVERY DAY active Not Available Not Available No t Available meloxicam 15 mg tablet TAKE 1 TABLET BY MOUTH EVERY DAY WITH A MEAL AVOID OTHER NSAIDS NEEDED TYLENOL IS OKAY active Not Available Not Available No t Available lisinopri l 20 mg tablet TAKE 1 TABLET BY MOUTH EVERY DAY WITH 10 MG TAB FOR TOTAL DOSE OF 30 MG DAILY 2024 active Not Available Not Available Not Avai lable alendrona te 70 mg tablet TAKE 1 TABLET BY MOUTH ONCE A WEEK DIRECTED active Not Available Not Available No t Available pimecroli mus 1 % topical cream 08/11 completed RECORDED 08/12/19 12 10:18AM BY CONNIE WADE MA, OFFICE VISIT;PE RSCRIBE BY DERMATOL OGDANIE. Not Available Not Available Not Available Zithromax Z-Bridger 250 mg tablet DAILY, DIRECTED 03/09 completed RECORDED 04/02/19 14 4:32PM BY PRASANNA ABEBE MD, MEDICATI ON AUTO-MEHNAZ CTIVATIO N;2 PILLS BY MOUTH ON DAY 1, THEN 1 PILL DAILY FOR DAYS # 2-5. Not Available Not Available Not Available Vitamin C 500 mg chewable tablet Take 1 tablet every day by oral route. 05/02 completed Not Available Not Available Not Available sulfameth oxazole 800 mg-trimet hoprim 160 mg tablet 11/09 completed Not Available Not Available Not Available acetamino phen 500 mg tablet Take 2 tablets every 6 hours by oral route as needed. active Not Available Not Available No t Available Vitamin C 1,000 mg tablet Take 1 tablet every day by oral route. active Not Available Not Available No t Available methocarb gurinder 750 mg tablet TAKE 1 TABLET BY MOUTH THREE TIMES DAILY FOR 10 DAYS DIRECTED 06/13 completed Not Available Not Available Not Available hydrocort isone valerate 0.2 % topical ointment APPLY EXTERNAL LY TO THE AFFECTED AREA TWICE DAILY 03/10 completed Not Available Not Available Not Available calcitoni n (salmon) 200 unit/actu ation nasal spray USE 1 SPRAY IN ONE NOSTRIL ONCE DAILY. ALTERNAT E NOSTRILS 09/29 completed Not Available Not Available Not Available amitripty line 10 mg tablet TAKE 1 TABLET BY MOUTH EVERY DAY AT BEDTIME 03/04 completed Not Available Not Available Not Available amlodipin e 10 mg tablet Take 1 tablet every day by oral route for 90 days. 2013 active Not Available Not Available Not Avai lable econazole nitrate 1 % topical cream Apply 1 g as needed by topical route for 5 days. 09/22 completed Not Available Not Available Not Available Tums Ultra 400 mg (as calcium carbonate 1,000 mg) chewable tablet Take 1 tablet every day by oral route. 06/13 completed as a calcium suppleme nt Not Available Not Available Not Available lisinopri l 10 mg tablet TAKE 1 TABLET BY MOUTH EVERY DAY IN THE EVENING. TOTAL DAILY DOSE: 30 MG 2024 active Not Available Not Available Not Avai lable metronida zole 0.75 % topical cream APPLY TO FACE ONCE DAILY 03/10 completed Not Available Not Available Not Available Calcium-6 00 600 mg (as calcium carbonate 1,500 mg) tablet Take 1 tablet every day by oral route. active Not Available Not Available No t Available ascorbic acid (vitamin C) 100 mg tablet DAILY active RECORDED 03/04/20 13 9:31AM BY CONNIE WADE MA, OFFICE VISIT; Not Available Not Available Not Available chlordiaz epoxide-c lidinium 5 mg-2.5 mg capsule Take 1 capsule as needed by oral route at bedtime for 30 days. 03/01 completed for IBS Not Available Not Available Not Available lisinopri l 5 mg tablet Take one by mouth daily 08/03 completed Not Available Not Available Not Available mupirocin 2 % topical ointment Apply by topical route for 10 days. 11/09 completed Not Available Not Available Not Available levofloxa gavi 500 mg tablet 08/03 completed Not Available Not Available Not Available estradiol 0.0375 mg/24 hr semiweekl y transderm al patch WEEKLY 10/26 completed Not Available Not Available Not Available doxycycli ne hyclate 100 mg tablet 08/17 completed Not Available Not Available Not Available diazepam 5 mg tablet EVERY SIX HOURS, NEEDED 03/09 completed RECORDED 04/02/19 14 4:32PM BY PRASANNA ABEBE MD, MEDICATI ON AUTO-MEHNAZ CTIVATIO N; Not Available Not Available Not Available oxycodone 5 mg tablet active Not Available Not Available Not Available Tums 500 1,250 mg chewable tablet Take 2 tablets every day by oral route. 03/01 completed FOR CALCIUM Not Available Not Available Not Available Memory José tablet Take 1 tablet every day by oral route. 03/03 completed Not Available Not Available Not Available cyclobenz aprine 5 mg tablet TAKE 1 TABLET BY MOUTH THREE TIMES DAILY FOR 5 DAYS NEEDED 03/10 completed Not Available Not Available Not Available estradiol 0.0375 mg/24 hr weekly transderm al patch Apply 1 patch every week by transder mal route. 10/26 completed Not Available Not Available Not Available rosuvasta tin 10 mg tablet TAKE 1 TABLET BY MOUTH EVERY DAY IN THE EVENING active Not Available Not Available No t Available Tums active Not Available Not Availa ble Not Available multivita min 1 PO DAILY 08/03 completed Not Available Not Available Not Available Elastic Wrist Splint Support AT BEDTIME FOR CTS (354) 09/10 completed RECORDED 09/30/19 12 4:39PM BY PRASANNA ABEBE MD, MEDICATI ON [facility] CTIVATIO N; Not Available Not Available Not Available diclofena c 1 % topical gel APPLY 2 GRAMS TO THE AFFECTED AREA(S) BY TOPICAL ROUTE 4 TIMES PER DAY 04/09 completed Not Available Not Available Not Available Vitamin D3 50 mcg (2,000 unit) capsule Take 1 capsule every day by oral route. active Not Available Not Available No t Available Tymlos 80 mcg/dose (3,120 mcg/1.56 mL) subcutane ous pen injector 1 injectio n daily 04/09 completed Not Available Not Available Not Available Fluad Quad (65yr up)(PF) 60 mcg (15 mcg x 4)/0.5mL IM syringe ADM 0.5ML IM UTD 03/03 completed Not Available Not Available Not Available Vitals Date Recorded Body height Body mass index (BMI) Body weight Heart rate Oxygen saturation Oxygen saturation in Arterial blood by Pulse oximetry Body temperature Systolic blood pressure Diastolic blood pressure Provider Name and Address Organization Details Last Updated DateTime 3 163.2 cm 24.4 kg/m2 53583.7 1 g 92 /min 97 % 97 % 97.5 [degF] 134 mm[Hg] 71 mm[Hg] Alan Valente MA [facility] 3 10:34:37 Date Recorded Body height Body mass index (BMI) Body weight Heart rate Oxygen saturation Oxygen saturation in Arterial blood by Pulse oximetry Body temperature Systolic blood pressure Diastolic blood pressure Provider Name and Address Organization Details Last Updated DateTime 3 163.2 cm 23.5 kg/m2 74799.7 5 g 80 /min 96 % 96 % 98.2 [degF] 113 mm[Hg] 58 mm[Hg] Connie Efrain-M attos, [place] [facility] 3 09:35:27 Date Recorded Body height Body mass index (BMI) Body weight Heart rate Oxygen saturation Oxygen saturation in Arterial blood by Pulse oximetry Body temperature Systolic blood pressure Diastolic blood pressure Provider Name and Address Organization Details Last Updated DateTime 4 163.2 cm 24.7 kg/m2 44382.8 9 g 77 /min 98 % 98 % 98.2 [degF] 134 mm[Hg] 80 mm[Hg] Rachel Herrera [facility] 4 10:28:54 Date Recorded Body height Body mass index (BMI) Body weight Heart rate Oxygen saturation Oxygen saturation in Arterial blood by Pulse oximetry Body temperature Systolic blood pressure Diastolic blood pressure Provider Name and Address Organization Details Last Updated DateTime 4 163.2 cm 24.9 kg/m2 97950.2 9 g 71 /min 96 % 96 % 97.6 [degF] 127 mm[Hg] 64 mm[Hg] Frida Meek [facility] 4 10:36:23 Date Recorded Body height Body mass index (BMI) Body weight Heart rate Oxygen saturation Oxygen saturation in Arterial blood by Pulse oximetry Body temperature Systolic blood pressure Diastolic blood pressure Provider Name and Address Organization Details Last Updated DateTime 5 163.2 cm 24 kg/m2 74679.5 2 g 83 /min 96 % 96 % 97 [degF] 111 mm[Hg] 58 mm[Hg] aDve hargrove [facility] 5 11:09:23 Social History Question Answer Notes LastModified by Organizat ion Details LastModified Time Tobacco Smoking Status [facility] 12:57:25 Do You Have An Advance Directive? No Needs MOLST Information not available 09/29/2022 What Is Your Level Of Alcohol Consumption? Moderate 2 Glasses Of Wine In Evening Information not available 11/10/2015 Animal Exposure? No [email or web address] Information not available 03/10/2022 Is Blood Transfusion Acceptable In An Emergency? Yes Information not available 08/15/2014 What Is Your Level Of Caffeine Consumption? None [email or web address] Information not available 03/10/2022 How Much Tobacco Do You Chew? None Information not available 08/15/2014 Are You Currently Employed? No Information not available 03/04/2021 What Type Of Diet Are You Following? REGULAR Information not available 03/04/2021 Which Illicit Or Recreational Drugs Have You Used? None Information not available 11/10/2015 Do You Or Have You Ever Used E-cigarettes Or Vape? Never Used Electronic Cigarettes Information not available 03/10/2022 Education 12 Information no t available 03/10/2022 What Is Your Occupation? None Information not available 11/10/2015 Have There Been Any Changes To Your Family Or Social Situation? No [email or web address] Information not available 03/10/2022 When Did You Quit Smoking? 16+yearssince ana [email or web address] Information not available 03/04/2021 Are There Any Guns Present In Your Home? No [email or web address] Information not available 03/10/2022 Legally Blind In One Or Both Eyes? No [email or web address] Information not available 03/10/2022 Live Alone Or With Others? With Others (Walter) [email or web address] Information not available 03/10/2022 Do You Take Precautions To Prevent Distracted Driving? Yes Information not available 11/10/2015 How Often Do You Need To Have Someone Help You When You Read Instructions, Pamphlets, Or Other Written Material From Your Doctor Or Pharmacy? Sometimes [email or web address] Information not available 03/04/2021 Have You Served In The ? No Information not available 10/26/2016 Have You Or Anyone In Your Household Had Any Of The Following Symptoms In The Last 14 Days: Sore Throat, Cough, Chills, Body Aches For Unknown Reasons, Shortness Of Breath For Unknown Reasons, Loss Of Smell, Loss Of Taste, Fever At Or Greater Than 100 Degrees Fahrenheit? No Information not available 03/03/2020 Are You Or Anyone In Your Household A Health Care Provider Or Emergency Responder? No Information not available 03/03/2020 To The Best Of Your Knowledge Have You Been In Close Proximity To Any Individual Who Tested Positive For COVID-19? No Information not available 03/03/2020 *AWV ONLY* Are You Presently Prescribed Opioid Medication By PCP Or Specialist? If YES -Provider Assess The Benefit For Other, Non-opioid Pain Therapies Instead, Even If The Patient Does Not Have OUD But Is Possibly At Risk. No [email or web address] Information not available 03/04/2021 Marital Status [email or web address] Informatio n not available 03/10/2022 What Was The Date Of Your Most Recent Tobacco Screening? 04/09/2024 [email or web address] Information not available 04/09/2024 Total Number Of Stairs In Home 15 Information not available 03/10/2022 How Many Children Do You Have? 2 Information not available 08/15/2014 What Is Your Current Pack Years? 10-19packyear s Information not available 03/10/2022 Do You Use Protection During Sex? No [email or web address] Information not available 03/10/2022 Difficulty Reading? No [email or web address] Information not available 03/10/2022 What Is Your Relationship Status? [email or web address] Information not available 03/10/2022 Do You Use Your Seat Belt Or Car Seat Routinely? Yes [email or web address] Information not available 03/04/2021 Seat Belts Used Routinely Yes [email or web address] Information not available 03/10/2022 Are You Sexually Active? No Information not available 08/15/2014 Smoke Alarm In Home Yes Information not available 03/10/2022 Do You Have Smoke And Carbon Monoxide Detectors In Your Home? Yes [email or web address] Information not available 03/04/2021 At What Age Did You Start Smoking Tobacco? 14 Quit At 40 Information not available 11/10/2015 Are You Passively Exposed To Smoke? No Information not available 11/10/2015 Do You Or Have You Ever Used Smokeless Tobacco? Never Used Smokeless Tobacco Information not available 03/01/2019 How Much Tobacco Do You Smoke? 0.5 PPD Information not available 09/29/2022 Do You Use Any Illicit Or Recreational Drugs? No [email or web address] Information not available 03/10/2022 Do You Use Sunscreen Routinely? Yes Information not available 08/15/2014 How Many Years Have You Smoked Tobacco? 26 Information not available 11/10/2015 Do You Or Have You Ever Used Any Other Forms Of Tobacco Or Nicotine? No Information not available 09/29/2022 Sex: Unknown Functional Status Question Answer Note LastModified by Organizat ion Details LastModified Time Do you have difficulty walking or climbing stairs? No [email or web address] Information not available 03/10/2022 Difficulty driving at night? No [email or web address] Information no t available 03/10/2022 Are you able to walk? [email or web address] Information not available 03/10/2022 Are you able to care for yourself? Yes Information not available 11/05/2013 Do you have difficulty dressing or bathing? No Information not available 03/10/2022 What is your exercise level? Occasional Information not available 03/04/2021 Mental Status Question Answer Note LastModified by Organization D etails LastModified Time Do you have difficulty concentrating, remembering or making decisions? No [email or web address] Information no t available 03/10/2022 Family History Relationship Description Onset Age of this Age Resolved Age Notes LastModified by Organization Details LastModified Time Mother Alzheimer's disease [email or web address] Not available 2021 14:02:33 Mother Depressive disorder [email or web address] Not available 2021 14:02:34 Mother Dementia [email or web address] Not available 03/10/2022 14:02:34 Father Cerebrovascu lar accident [email or web address] Not available 14:02:34 Father Hypercholest erolemia [email or web address] Not available 2013 14:03:44 Father Diabetes mellitus [email or web address] Not available 2021 14:02:34 Brother Diabetes mellitus of compli cation s [email or web address] Not available 03/10/2022 14:02:34 Brother Asthma [email or web address] Not available 03/10/2022 14:02:34 Brother Cerebrovascu lar accident 64 [email or web address] Not available 14:02:34 Brother Cerebrovascu lar accident 65 Not available 14:02:34 Brother Diabetes mellitus Not available 2021 14:02:34 Unspecified Relation Diabetes mellitus Not available 2021 14:02:34 Medical History Condition Response Coronary Artery Disease N Gout N Other N Kidney Stones N Blood Diseases N Hyperthyroidism N Breast Cancer N Lung Disease N COPD N Depression N Hypothyroidism N Defects or Inherited Disease N Anesthesia Complications N Headaches/Migraines N Anxiety Disorder N Varicose Veins N Obesity N Vision or Eye Problems N Arthritis N Head Injury/Concussion Y Polyps N Infertility N Congenital Anomalies N Acid Reflux (GERD) N Cancer N Stroke N ADHD N Endometriosis N High Cholesterol Y Liver Disease N Fibromyalgia N Kidney Disease N Heart Problems N Ear or Hearing Problems N Hospitalizations N Thyroid Problems N GI Problems N Acne N Eating Disorder N Skin Problems Y Anemia N Constipation N Bladder Problems N Mental Illness N Diabetes N Ovarian Cancer N Blood Transfusions N Seizures/Epilepsy N Tuberculosis N AIDS/HIV N Congestive Heart Failure (CHF) N Eczema Y Abuse/Domestic Violence N Diverticulitis N Asthma N Allergies Y Reflux/GERD N Hepatitis N Pulmonary Embolism N Hypertension Y Chicken Pox N Autism Spectrum Disorder (ASD) N Osteoporosis N Gynecological History Statement/Question Response Abnormal Pap N STIs/STDs N Age at Menarche 11 Current Control Method Hysterectom y Most Recent Mammogram 02/20/2023 Age at First Child 16 If Post Menopausal, Age at Menopause 40 Date of Last Colonoscopy 08/14/2014 Most Recent Bone Density 11/14/2006 Sexually Active? Y Menses Monthly N Date of Last Pap Smear 11/08/2016 Sexual Problems? N Y Obstetrics History GPAL:G 0 P 0 0 0 0 Immunizations Vaccine Type Date Status Note Provider Nam e and Address Organization Details Recorded Time varicella 4 completed Not Available [facility] 04/06/2023 10:24:57 Influenza, high-dose, trivalent, PF 0 completed Trini greene [facility] 12/16/2019 11:04:50 varicella 4 completed KATARZYNA Guevara [facility] 03/04/2021 09:26:49 COVID-19 vaccine, vector-nr, rS-Ad26, PF, 0.5 mL 1 completed KATARZYNA Guevara, [facility] 03/04/2021 09:26:49 COVID-19, mRNA, LNP-S, PF, 100 mcg/0.5mL dose or 50 mcg/0.25mL dose 1 completed KATARZYNA Guevara, [facility] 03/04/2021 09:26:49 Influenza, high-dose, trivalent, PF 1 completed KATARZYNA Guevara, [facility] 03/04/2021 09:31:50 Influenza, split virus, quadrivalent, PF 5 completed Not Available [facility] 04/13/2019 02:22:01 Influenza, high-dose, quadrivalent, PF 2 completed Not Available [facility] 04/28/2022 15:10:30 zoster recombinant 2 completed Not Available [facility] 04/28/2022 15:10:30 COVID-19, mRNA, LNP-S, PF, 100 mcg/0.5mL dose or 50 mcg/0.25mL dose 2 completed Not Available [facility] 04/28/2022 15:10:30 COVID-19, mRNA, LNP-S, PF, 100 mcg/0.5mL dose or 50 mcg/0.25mL dose 2 completed Not Available [facility] 04/28/2022 15:10:30 COVID-19, mRNA, LNP-S, bivalent, PF, 50 mcg/0.5 mL or 25mcg/0.25 mL dose 3 completed Not Available [facility] 04/06/2023 10:24:57 Pneumococcal conjugate PCV 13 6 completed Not Available [facility] 04/13/2019 02:21:36 Influenza, high-dose, trivalent, PF 6 completed Not Available [facility] 04/13/2019 02:22:03 pneumococcal polysaccharide PPV23 7 completed Not Available [facility] 04/13/2019 02:21:28 Influenza, high-dose, trivalent, PF 7 completed Not Available [facility] 04/13/2019 02:22:21 Influenza, split virus, trivalent, preservative 7 completed Not Available [facility] 10/08/2013 13:42:56 Tdap 8 completed Not Available [facility] 10/08/2013 13:42:56 Influenza, split virus, trivalent, preservative 1 completed Not Available [facility] 10/08/2013 13:42:56 influenza, seasonal, intradermal, preservative free 2 completed Not Available [facility] 10/08/2013 13:42:56 Influenza, split virus, trivalent, preservative 3 completed Not Available [facility] 10/08/2013 13:42:56 Influenza, high-dose, trivalent, PF 8 completed Not Available [facility] 04/13/2019 02:22:14 Td (adult), 2 Lf tetanus toxoid, preservative free, adsorbed 8 completed Not Available [facility] 04/13/2019 02:21:30 Influenza, high-dose, trivalent, PF 9 completed Not Available [facility] 04/13/2019 02:22:09 Influenza, split virus, trivalent, PF 4 completed Not Available [facility] 04/13/2019 02:21:58 Past Encounters Encounter ID Performer Location Encounter Start Date Encounter Closed Date Diagnosis/Indication Diagnosis SNOMED-CT Code Diagnosis ICD10 Code Diagnosis Note [id number] auto[facility]Comm erce [address] [facility] [place] [address] 08/02/2006 00:00:00 [id number] autoEComm erce [address] [facility],[place] [address] [place] [address] 08/23/2006 00:00:00 [id number] autoEComm erce [address] [facility],[address] [address] [place] [address] 12/29/2006 00:00:00 [id number] autoEComm erce [address] [facility],[address] [address] [place] [address] 07/10/2007 00:00:00 [id number] [address] [address] [place] [address] 11/05/2007 00:00:00 [id number] auto[address]Comm erce [address] [address] [place] [address] 01/09/2008 00:00:00 [id number] autoEComm erce [address] [address] [place] [address] 11/18/2008 00:00:00 [id number] autoEComm erce [address] [facility] [address],[place] [address] [place] [address] 01/13/2009 00:00:00 [id number] autoEComm erce [address] [facility] [address] [address] [place] [address] 01/28/2009 00:00:00 [id number] autoEComm erce [address] [facility] [address] [address] [place] [address] 07/28/2009 00:00:00 [id number] autoEComm erce [address] [facility],[place] [address] [place] [address] 11/16/2009 00:00:00 [id number] autoEComm erce [address] [facility] [address] [address] [place] [address] 11/24/2010 00:00:00 [id number] autoEComm erce [address] [facility] [address] [address] [place] [address] 08/12/2011 00:00:00 [id number] autoEComm erce [address] [facility],[place] [address] [place] [address] 07/31/2012 00:00:00 [id number] autoEComm erce [address] [facility] [address] [address] [place] [address] 03/04/2013 00:00:00 [id number] Main Office [address] [place] [address] 11/05/2013 13:05:00 11/05/2013 14:12:37 Allergic rhinitis 39466721 Essential hypertension 50464464 Osteoarthr itis of knee 200021039 Irritable bowel syndrome 20018117 Hyperlipidemia 95653867 Fatigue 35006221 [id number] Connie jones [place] Main Office [address] [address] [place] [address] 02/07/2014 10:16:49 02/07/2014 11:35:10 Adult health examination 707022308 Essential hypertension 90598961 Needs infl uenza immunization 719261150 Irritable bowel syndrome 10156955 Acute sinusitis 39031631 [id number] Main Office [address] [address] [place] [address] 08/15/2014 12:46:16 08/15/2014 13:34:48 Carpal tunnel syndrome 61542245 Pre-surger y evaluation 367059487 [id number] Main Office [address] [address] [place] [address] 10/14/2014 09:50:53 10/14/2014 10:29:09 Pre-surgery evaluation [id number] Rainey Perioperat des Cardiac Risk was calculated and the risk for perioperat des MN is 0.16 %. Had EKG at last visit, no further work-up necessary. May proceed to surgery as planned. Carpal trini lelia syndrome 02589007 Having right carpal tunnel release with Dr. Jackson 10/21. Irritable bowel syndrome 06183701 Requests refill on med. [id number] Prasanna Abebe MD Main Office [address] [address] [place] [address] 01/22/2015 10:10:34 01/22/2015 10:38:57 Needs influenza immunization 899306880 Z23 [id number] Prasanna Abebe MD Main Office [address] [address] [place] [address] 11/10/2015 09:47:47 11/10/2015 11:14:13 Adult health examination 761435189 Z00.00 Essential hypertension 53249666 I10 Hyperlipidemia 67912338 E78.5 Anxiety state 632461979 F41.1 Administra tion of pneumococcal vaccine 02041707 Z23 Irritable bowel syndrome 30805103 K58.9 Osteoarthr itis of knee 153417709 M17.0 Neck pain 80275576 M54.2 [id number] Prasanna Abebe MD Main Office [address] [address] [place] [address] 03/09/2016 10:19:50 03/09/2016 10:44:39 Influenza vaccine needed 2977786009 106 Z23 [id number] Prasanna Abebe MD Main Office [address] [address] [place] [address] 08/03/2016 10:19:11 08/03/2016 11:13:03 Essential hypertension 68202775 I10 Benign par oxysmal positional vertigo 792753628 H81.10 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 0403893 M70.62 Neck pain 69866966 M54.2 [id number] Prasanna Abebe MD Main Office [address] [address] [place] [address] 10/26/2016 09:19:18 10/26/2016 10:03:05 Essential hypertension 92860452 I10 Bursitis of hip 27545026 M71.559 Hyperlipidemia 30717885 E78.5 [id number] Prasanna Abebe MD Main Office [address] [address] [place] [address] 02/07/2017 10:18:55 02/07/2017 11:38:28 Adult health examination 842836429 Z00.00 Administra tion of pneumococcal vaccine 04937901 Z23 Influenza vaccine needed 9139786069 106 Z23 Irritable bowel syndrome 41742277 K58.9 Bursitis of hip 03729489 M71.559 Thoracic back pain 27784 8004 M54.6 Hyperlipidemia 13604914 E78.5 Fatigue 14691847 R53.83 Essential hypertension 35039751 I10 [id number] Hola Rodriguez MD Main Office [address] [address] [place] [address] 08/17/2017 10:11:48 08/17/2017 11:13:00 Essential hypertension 44927218 I10 BP slightly elevated today, repeat manual BP 150/80 right, 138/80 left. Take med daily as directed, DASH diet Benign par oxysmal positional vertigo 773234657 H81.10 c/o vertigo however this may be related to sinus pain/ pressure and middle ear fluid- allergy sx. Referral provided but she may try allergy meds first Loss of hair 175296642 L 65.9 c/o hair loss. she does have a dermatolog ist in [place], will check labs. Fatigue 84943938 R53.83 Low back pain 553539354 M54.5 Left SI joint pain with sitting for long periods, no other low back pain, will XR, may need physiatry referral Allergic rhinitis 830608 04 J30.9 to start zyrtec daily at bedtime an flonase daily- takes 3-5 days to kick in fully. should use for at least 2 weeks, if not through allergy season. [id number] Prasanna Abebe MD Main Office [address] [address] [place] [address] 12/15/2017 13:27:01 12/15/2017 15:57:28 Influenza vaccine needed 1186511037 106 Z23 [id number] JC Parker Main Office [address] [address] [place] [address] 02/27/2018 13:18:12 02/27/2018 14:20:30 Adult health examination 989711514 Z00.00 HM UTD Essential hypertension 47843647 I10 Hepatitis C screening 39 9413899 Z11.59 Requires a tetanus booster 915413626 Z23 Fatigue 81640825 R53.83 Neck pain 30203428 M54.2 s/p fall 4 weeks ago she would like to go to PT again. 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 encouraged to hydrate, rest as much as possible. [id number] Laura Ball Main Office [address] [address] [place] [address] 01/12/2019 08:10:27 01/12/2019 08:25:41 Influenza vaccine needed 2168161675 106 Z23 [id number] JC Parker Main Office [address] [address] [place] [address] 03/01/2019 10:51:46 03/01/2019 11:57:54 Adult health examination 033802148 Z00.00 HM UTD, wishes to hold off on bloodwork this year Essential hypertension 58505042 I10 Postconcus dragan syndrome 86018819 F07.81 Working th rough the pain of grief 039975831 F43.21 lost her baby brother in August from an unexpected stroke, is grieving. [id number] Yuridia Andrade [facility] Main Office [address] [address] 03/03/2020 10:51:15 03/03/2020 11:58:25 Adult health examination 235026834 Z00.00 UTD, wishes to hold off on bloodwork this year Essential hypertension 75105013 I10 BP borderline . instructed to check 1 hour after taking lisinopril . if still high will increase dose Headache 60562884 R51.[address], will consider migraine med daily if CT negative Fatigue 65144122 R53.83 Screening for cardiovascular system disease 516878745 Z13.6 [id number] Yuridia Andrade [facility] Main Office [address] [address] 03/04/2021 09:13:09 03/04/2021 10:12:53 Adult health examination 985319329 Z00.00 UTD, declines to go for pap. Essential hypertension 53757887 I10 Osteopenia 441342018 M85 .80 Headache 89182010 R51.9 Fatigue 32161179 R53.83 Screening for cardiovascular system disease 800177383 Z13.6 Rib pain 478913193 R07.8 1 will check XR Thoracic back pain 64512 8004 M54.6 will check XR Disorder o f musculoskeletal system 542245 M85.89 [id number] Yuridia Andrade [facility] Main Office [address] [address] 03/10/2022 13:58:38 03/10/2022 14:55:58 Adult health examination 855578948 Z00.00 HM UTD, declines to go for pap. Essential hypertension 61674373 I10 Headache 34687575 R51.9 Fatigue 97810356 R53.83 Hyperlipidemia 67289806 E78.5 Osteoporosis 53056031 M8 1.0 will hold off on treatment for now, continue calcium, start vitd D 2000 units per day and weight bearing exercise. Pain of ri ght shoulder joint 6471274536 7250139 M25.511 [id number] Nitish Santamaria PA-C Main Office [address] [facility] [address] [place] [address] 04/28/2022 14:52:53 04/28/2022 16:01:54 Low back pain 189903279 M54.50 s/p fall last night - rec check xrays LS spine & R hip/pelvis to r/o fx, rec ice often for next few days, then switch to moist heat as needed with gentle stretching recommend meloxicam 15mg once daily with food (avoid advil and aleve) - can use tylenol 500mg 1-2 tabs up to 3 times/day as needed if + fx will likely send to ER for eval -- will get relayed by on-call MD rtc in 4 days for re-eval Pain in ri ght hip joint 0714374999 95926 M25.551 [id number] Nitish Santamaria PA-C Main Office [address] [facility] [address] [place] [address] 05/02/2022 14:49:28 05/02/2022 16:09:14 Compression fracture of lumbar spine 983737512 M48.56XA cont ice, calcium/vi t d as dir, and begin calcitonin as dir as well - not available at [facility] so will try another -- see below Osteoporosis 61326338 M8 1.0 see above - will also get endo eval rtc 6 wks, sooner prn [id number] JC Parker Main Office [address] [facility] [address] [place] [address] 05/12/2022 10:29:45 05/12/2022 11:40:54 Compression fracture of vertebral column 16233081 M48.50XD continue meloxicam daily- should be taken during the day to benefit her during the day-0 she will not take it tonight and start it again tomorrow morning. continue calcitonin spray, will add robaxin to use as needed, heat or ice whichever feels best. Will check urine, and bloodwork. orders entered earlier today Increased frequency of urination 398093692 R35.0 Disorder o f bone and articular cartilage 353089577 M24.10 Essential hypertension 02548166 I10 controlled on current meds, continue as directed. [id number] Nitish Santamaria PA-C Main Office [address] [address] [place] [address] 06/13/2022 10:19:39 06/13/2022 11:43:46 Compression fracture of vertebral column 43635583 M48.50XD stable, cont meds as dir, rec increase tyl 500mg to schedule 1-2 tabs tid rather than prn, cont alt ice/heat prn Osteoporosis 36829823 M8 1.0 seen by shaista, jeana 5.12.23 Pain of ri ght shoulder joint 2600077343 3937857 M25.511 pending f/u c neos in a few days, cont PT as dir by neos [id number] JC Parker Main Office [address] [address] [place] [address] 09/29/2022 09:19:28 09/29/2022 10:26:44 Hyponatremia 10638758 E87.1 recheck labs Memory impairment 096027 006 R41.3 sx worsening since Fall in Apr. 6 CIT score 12, was 0 in february of 2022. She does repeat some phrases. Address line repeated and she again is unable to remember the address. Will check some additional bloodwork and CT scan. refer to memory disorders clinic. Encouraged brain stimulatio n, getting back into reading, crossword puzzles, sudoku, crocheting or knitting, jigsaw puzzles etc. Compressio n fracture of lumbar spine 667954363 M48.56XA takign tylenol as needed, will add diclofenac gel as needed [id number] JC Parker Main Office [address] [address] [place] [address] 04/06/2023 10:20:31 04/06/2023 11:18:51 Adult health examination 756150387 Z00.00 HM UTD, hx of hysterecto my, no vaginal bleeding, discharge. Essential hypertension 91173513 I10 controlled on current meds, continue as directed. Fatigue 90654291 R53.83 Hyperlipidemia 94404452 E78.5 Osteoporosis 04480478 M8 1.0 tymlos injections daily. Hyponatremia 57831352 E8 7.1 recheck labs Memory impairment 715416 006 R41.3 sx worsening since Fall in Apr. CIT score 16, was 0 in february of 2022. She does repeat some phrases. Address line repeated and she again is unable to remember the address. re- refer to memory disorders clinic. Encouraged brain stimulatio n, getting back into reading, crossword puzzles, sudoku, crocheting or knitting, jigsaw puzzles etc. [id number] Yuridia Andrade, [facility] Main Office [address] [place] [address] 10/06/2023 10:15:17 10/06/2023 11:10:19 Essential hypertension 36829248 I10 controlled on current meds, continue as directed.B P seems to be elevated in the afternoons , take 20mg in the am and 10mg pm- 5pm. Hyperlipidemia 95782524 E78.5 Osteoporosis 76064025 M8 1.0 tymlos injections daily. Hyponatremia 09204561 E8 7.1 recheck labs Compressio n fracture of vertebral column 06432715 M48.50XD [id number] Yuridia Andrade, [facility] Main Office [facility] [address] [place] [address] 04/09/2024 10:46:22 04/09/2024 12:08:07 Adult health examination 327922221 Z00.00 UTD, hx of hysterecto my, no vaginal bleeding, discharge. , mammograms -declines is age 73. colo will have one more visit. pap not needed vaginal exams done Essential hypertension 12534896 I10 controlled on current meds, continue as directed. Fatigue 36462001 R53.83 Hyperlipidemia 94754297 E78.5 Memory impairment 586461 006 R41.3 sx worsening since Fall in Apr. CIT score 12, was 0 in february of 2022. She does repeat some phrases. Address line repeated and she again is unable to remember the address. re- refer to memory disorders clinic. Encouraged brain stimulatio n, getting back into reading, crossword puzzles, sudoku, crocheting or knitting, jigsaw puzzles etc. Screening for malignant neoplasm of colon 264403714 Z12.11 Health Concerns Section Related Observation LastModified by Organization Detai ls LastModified Time None Recorded Concern Status LastModified by Organization Details LastModified Time None Recorded Advance Directives Directive N: needs MOLST Payers Encounter Date Sequence Insurance Name Policy Number Policy Louis Covered Member ID Louis Member ID Guarantor Name 06/13/2022 2 [facility] - MEDICARE ENHANCE (INDEMNITY PLAN) Vickie E Arnesen [id number] Vickie E Arnesen 06/13/2022 1 [place] [employer] [place] Vickie E Arnesen [id number] Vickie E Arnesen 09/29/2022 2 [facility] - MEDICARE ENHANCE (INDEMNITY PLAN) Vickie E Arnesen [id number] Vickie E Arnesen 09/29/2022 1 [place] [employer] Vickie E Arnesen [id number] Vickie E Arnesen 04/06/2023 2 [facility] - MEDICARE ENHANCE (INDEMNITY PLAN) Vickie E Arnesen [id number] Vickie E Arnesen 04/06/2023 1 [place] [employer] [place] Vickie E Arnesen [id number] Vickie E Arnesen 10/06/2023 2 [facility] - MEDICARE ENHANCE (INDEMNITY PLAN) Vickie E Arnesen [id number] Vickie E Arnesen 10/06/2023 1 [place] [employer] [place] Vickie E Arnesen [id number] Vickie E Arnesen 04/09/2024 2 [facility] - MEDICARE ENHANCE (INDEMNITY PLAN) Vickie E Arnesen [id number] Vickie Barahona 04/09/2024 1 [place] [facility] Vickie Barahona [id number] Vickie Barahona Notes Date Note Type Note Provider Name and Address Organization Details Recorded Time 06/13/2022 text/html here for f/u vcf - Pt states that she is feeling better, but the pain is still there - reviewed endo & ortho notes Nitish Santamaria PA-C [address] [facility] [address], [place], [address], [facility] 06/13/2022 13:07:27 09/29/2022 text/html Generic HPI TemplateReported bypatient.Notes:Presen ts with concerns of memory changes.Started after her fall with compression fracture in Apr. She has seen endocrinology and is on tx for osteoporosis. For [address] or get her nails/ hair done. They were unable to go to [place] this year, their bathroom was being remodeled, she stopped reading on her eleuterio.6CIT score today is 12 it was 0 in february of 2022. Patient has noticed she has not been remembering things like she did in the past. Did have one incident where she took a wrong turn and got lost and panicked a bit. now has directions written down. her notes she has never really had a good sense of direction or driven much. JC Parker [address] [facility] [address], [place], [address], [facility] 09/29/2022 10:37:07 04/06/2023 text/html Medicare Annual Wellness VisitReported bypatient.Diet and Nutrition:healthy diet; discussed vitamin and supplement use; discussed portion control; discussed diet improvement Fracture Risk:no recent explained fracture; no sudden unexplained fractures;history of fractures Physical Activity:recent increase in physical activity; good physical condition; discussed weightbearing activities; discussed exercise habits; re-starting treadmill Depression Risk:never feels sad, empty, or tearful; no loss of interest in activities; no agitation; no history of depression; no history of mood disorders Orientation:no disorientation to time; no disorientation to date; no disorientation to place Concentration and Memory:no decreased concentrating ability; does not forget words;memory lapses or loss Speech/Motor difficulties:no speech difficulties; no difficulty expressing formulated concepts; no difficulty with fine manipulative tasks; no difficulty writing/copying; no slowed reaction time; does not knock things over when trying to pick them up Hearing:no loss of hearing Vision:no vision problems; wears glasses Activities of Daily Living:able to bathe with limited or no assistance; able to contol urination and bowels; able to dress with limited or no assistance; able to feed self with limited or no assistance; able to get out of chair or bed with limited or no assistance; able to groom with limited or no assistance; able to toilet with limited or no assistance Instrumental Activities of Daily Living:able to do house work with limited or no assistance; able to grocery shop with limited or no assistance; able to manage medications with limited or no assistance; able to manage money with limited or no assistance; able to prepare meals with limited or no assistance; able to use the phone with limited or no assistance Falls Risk Assessment:no frequent falls while walking; no fall in the past year; no fall since last visit Home Safety:working smoke/CO detectors; use of seatbeltsNotes:Back to reading, doing crosswords, back to her normal activities still has back pain at times but depends on the day. Diet is healthy, is exercising with bands and yoga ball.Had an episode in the past while driving where she got lost and doesn't drive as much now nervous to get lost.6CIT score up to 16 today- was 12 in September, was referred to neuro in September but her sodium was low, this was corrected and referral was re-faxed but they have not heard back yet. Yuridia Andrade, [facility] [address] [facility] [address], [place], [address], [facility] 04/06/2023 12:36:27 10/06/2023 text/html Generic HPI TemplateReported bypatient.Notes:Juan Jose bocanegra with her Walter:6 month f/u Saw Dr. Grimm for initial eval. had MRI- needs pet- amyloid scan to r/p AD. Mild cognitive declines is diagnosis currently.Things at home are stable, not driving, reading some books, doing crosswords, trying to do exercises for her back but has pain. Has appt with Dr blair 11/2023 for osteoporosis, using tymlos injections May had bone density, august 02 dentist, 08/30 MRI, 09/10 memory clinic, 10/22 has eye appt. Yuridia Andrade, [facility] [address], [address], [facility] 10/06/2023 11:24:36 04/09/2024 text/html Medicare Annual Wellness VisitReported bypatient.Diet and Nutrition:healthy diet; discussed vitamin and supplement use; discussed portion control; discussed diet improvement Fracture Risk:no recent explained fracture; no sudden unexplained fractures;history of fractures Physical Activity:recent increase in physical activity; good physical condition; discussed weightbearing activities; discussed exercise habits Depression Risk:never feels sad, empty, or tearful; no loss of interest in activities; no agitation; no history of depression; no history of mood disorders Orientation:no disorientation to time; no disorientation to date; no disorientation to place Concentration and Memory:no decreased concentrating ability;memory lapses or loss;forgetting words Speech/Motor difficulties:no speech difficulties; no difficulty expressing formulated concepts; no difficulty with fine manipulative tasks; no difficulty writing/copying; no slowed reaction time; does not knock things over when trying to pick them up Hearing:no loss of hearing Vision:no vision problems; wears glasses Activities of Daily Living:able to bathe with limited or no assistance; able to contol urination and bowels; able to dress with limited or no assistance; able to feed self with limited or no assistance; able to get out of chair or bed with limited or no assistance; able to groom with limited or no assistance; able to toilet with limited or no assistance Instrumental Activities of Daily Living:able to do house work with limited or no assistance; able to grocery shop with limited or no assistance; able to manage medications with limited or no assistance; able to manage money with limited or no assistance; able to prepare meals with limited or no assistance; able to use the phone with limited or no assistance Falls Risk Assessment:no frequent falls while walking; no fall in the past year; no fall since last visit Home Safety:working smoke/CO detectors; use of seatbeltsNotes:Back to reading, back to her normal activities still has back pain at times but depends on the day.Diet is healthy, is exercising with bands and yoga ball.Had an episode in the past while driving where she got lost and doesn't drive as much now nervous to get lost.6CIT score up to 12 today- was [address] Grimm- 02/08/24- had testing prior- few option were presented- every 2 week infusions- opted put. On donepezil which she started is on 10mg now. No side effects so far, but no change.Has another appt coming up. started alendronate once weekly no side effects for osteoporosis.taking 2 tylenol 1-2x/ day as needed. Bp has been elevated but fluctuates, normal here. a few readings 150/ 80s. Yuridia Andrade, [facility] [address] [address], [place], [address], [facility] 04/09/2024 12:40:01 OBGyn Episode No OBEpisode recorded.
--- OUTSIDE RECORDS SUMMARY | 2024-06-24 12:23 | XMS_ITS | Clinical Summary ---
Author Organization Formerly [facility] Address [address] [place] [address] Care Team Providers Care Sorter Pricer Name Role Phone Unavailable Primary Care Provider Unavailabl e Social History Tobacco Use Types Packs/Day Years Used Date Smoking Tobacco: Never Assessed Sex and Gender Information Value Date Recorded Sex Assigned at Not on file Gender Identity Not on file Sexual Orientation Not on file Plan of Treatment Not on file
--- OUTSIDE RECORDS SUMMARY | 2024-06-24 12:23 | XMS_ITS | Clinical Summary ---
Author Organization [facility] [address] [facility] Address [address] [place] [address] Phone Care Team Providers Care Materials And Processes Manager Name Role Phone Miller Andrade Primary Care Provider [phone] Encounters Date Type Department Care Team Description 04/10/2024 Telephone Gastroenterology - [address] [address] Prasanna Chavez MD from Last 3 Months Social History Tobacco Use Types Packs/Day Years Used Date Smoking Tobacco: Never Assessed Comments Unknown Sex and Gender Information Value Date Recorded Sex Assigned at Not on file Legal Sex Female 10:10 AM EST Gender Identity Not on file Sexual Orientation Not on file Plan of Treatment Health Maintenance Due Date Last Done Comments DTaP,Tdap,and Td Vaccines (1 - Tdap) 12/19/1967 Pneumococcal Vaccine: 50+ Ye ars (1 of 1 - PCV) 1998 Zoster Vaccines (1 of 2) 1998 Colorectal Cancer Screening: Colonoscopy 02/22/2022 Depression Screening 02/22/2022 Falls Risk Assessment 02/22/2022 Hepatitis C Screening 02/22/2022 Medicare Annual Wellness Visit 02/22/2022 Osteoporosis Screening (Bone Density Screening) 02/22/2022 Social Influencers of Health Screening 02/22/2022 COVID-19 Vaccine ( - 2023-2 5 season) 2023 Influenza Vaccine (#1) 2023 RSV Immunization Patients 60 + Years Old (1 - 1-dose 75+ series) 12/19/2023 HIB Vaccines Aged Out No longer eligi ble based on patient's age to complete this topic HPV Vaccines Aged Out No longer eligi ble based on patient's age to complete this topic Hepatitis A Vaccines Aged Out No long er eligible based on patient's age to complete this topic Hepatitis B Vaccines Aged Out No long er eligible based on patient's age to complete this topic IPV Vaccines Aged Out No longer eligi ble based on patient's age to complete this topic MMR Vaccines Aged Out No longer eligi ble based on patient's age to complete this topic Meningococcal ACWY Vaccine Aged Out N o longer eligible based on patient's age to complete this topic Meningococcal B Vacine Aged Out No lo nger eligible based on patient's age to complete this topic RSV Immunization Patients Un shannon 20 months Aged Out No longer eligible b ased on patient's age to complete this topic Varicella Vaccines Aged Out No longer eligible based on patient's age to complete [place] [id number] MEDICARE [facility] MEDICARE Care Teams Materials And Processes Manager Relationship Specialty Start Date End Date Miller Andrade PA [address] [address] PCP - General Physician Civil Clerk 04/10/24
--- OUTSIDE RECORDS SUMMARY | 2024-06-24 12:23 | XMS_ITS | Clinical Summary ---
Author Organization [facility] Address [address] [facility] [address] [place] [address] Phone Care Team Providers Care Security System Administrator Name Role Phone Prasanna Abebe MD Primary Care Provider [phone] Allergies No known active allergies Medications Medication Sig Dispensed Refills Start Date End Date Status lisinopril (PRINIVIL,ZESTRIL) 10 MG tablet lisinopril 10 mg tablet TAKE 1 TABLET BY MOUTH EVERY DAY DIRECTED Active ascorbic acid, vitamin C, (VITAMIN C) 500 mg Chew daily. Active multivitamin per tablet daily. Active calcium carbonate (OS-JANETH) 1,250 mg (500 mg elemental) chewable tablet daily. Active hydrocortisone valerate (WESTCORT) 0.2 % ointment Apply topically 2 (two) times a day. Active Family History Medical History Relation Comments Diabetes Brother 1 age 65 Heart disease Brother 1 Stroke Brother 1 Diabetes Brother 2 age 65 comp lications and stroke Heart disease Brother 2 Stroke Brother 2 Diabetes Father Heart attack Father Heart disease Father Stroke Father No Known Problems Maternal Grandfather No Known Problems Maternal Grandmother Alzheimer's disease Mother Hypertension Mother No Known Problems Paternal Grandfather No Known Problems Paternal Grandmother Hearing loss Sister Relation Status Comments Brother 1 Brother 2 Father Maternal Grandfather Maternal Grandmother Mother Paternal Grandfather Paternal Grandmother Sister Alive Social History Tobacco Use Types Packs/Day Years Used Date Smoking Tobacco: Former Smokeless Tobacco: Never Alcohol Use Standard Drinks/Week Comments Yes 0 (1 standard drink = 0.6 oz pur e alcohol) Education Answer Date Recorded Are you interested in more education? Not on lilliam e 07/22/2022 Are you concerned about learning? Not on file 07/22/2022 No 07/22/2022 No 07/22/2022 Digital Access Answer Date Recorded No 08/20/2022 No 08/20/2022 No 08/20/2022 Reliable internet access at home? Not on file 08/20/2022 Device with a working camera? Not on file Sex and Gender Information Value Date Recorded Sex Assigned at Not on file Gender Identity Not on file Sexual Orientation Not on file Last Filed Vital Signs Vital Sign Reading Time Taken Comments Blood Pressure 132/64 10/08/2018 9:42 AM EDT Pulse - - Temperature - - Respiratory Rate - - Oxygen Saturation - - Inhaled Oxygen Concentration - - Weight 61.7 kg (136 lb) 10/08/2018 9:42 AM EDT Height 165.1 cm (5' 5 ) 10/08/2018 9:42 AM EDT Body Mass Index 22.63 10/08/2018 9:42 AM EDT Plan of Treatment Health Maintenance Due Date Last Done Comments CREATININE LEVEL 1948 LIPID PANEL 1948 POTASSIUM LEVEL 1948 DEPRESSION SCREENING 1960 SMOKING Hx and SMOKELESS TOBACCO SCREENING 1961 HEPATITIS B SCREENING 1966 HEPATITIS C SCREENING 1966 COLOGUARD 1993 COLONOSCOPY 1993 COLORECTAL CANCER SCREENING 1993 FIT TEST 1993 FOBT 1993 SIGMOIDOSCOPY 1993 VIRTUAL COLONOSCOPY 1993 ZOSTER VACCINES (1 of 2) 1998 OSTEOPOROSIS SCREENING INITIAL (ONE-TIME) 2013 INFLUENZA VACCINE (#1) 2023 , 01/12/2019, 12/15/2017, Additional history exists COVID-19 VACCINE (2 - season) 2023 06/01/2020 RSV VACCINE (1 - 1-dose 75+ series) 12/19/2023 Adult Td,Tdap Booster 02/28/2028 02/27/2018, 008 PNEUMOCOCCAL VACCINES (50+ years) Completed 02/07/2017, 11/10/2015 HEPATITIS A VACCINES Aged Out No long er eligible based on patient's age to complete this topic HEPATITIS B VACCINES Aged Out No long er eligible based on patient's age to complete this topic HIB VACCINES Aged Out No longer eligi ble based on patient's age to complete this topic MENINGOCOCCAL VACCINES (ACWY) Aged Out No longer eligible based on patient's age to complete this topic Medical Devices Not on file Vickie Barahona Personal/Famil y Self 1950 [address] [facility] [place] [place] [address] Vickie Barahona Personal/Famil y Self 1950 [address] [facility] [place] [place] [address] Delia Barahonane Personal/Famil y Self 1950 [address] [facility] [place] [place] [address] Delia Barahonane Personal/Famil y Self 1950 [address] [facility] [place] [place] [address] Delia Barahonane Personal/Famil y Self 1950 [address] [facility] [place] [address] Delia Barahonane Personal/Famil y Self 1950 [address] [facility] [place] [address] Delia Barahonane Personal/Famil y Self 1950 [address] [place] [address] Vickie Barahona Personal/Famil y Self 1950 [address] [place] [address] Care Teams Security System Administrator Relationship Specialty Start Date End Date Prasanna Abebe MD [address] [place] [phone] PCP - General Internal Medicine 07/26/18 Additional Source Comments The information contained in this document represents components of the legal health record. It is not the complete legal health record.[facility]
== END 2024-06-24 11:27 | disposition home or self-care (01) ==
LOC: HO.ENCR 10:56
PROVIDERS: PCP Registered Nurse; Visit Provider Internal Medicine Endocrinology, Diabetes & Metabolism
DX: M81.0 Age-related osteoporosis without current pathological fracture (principal)
CPT/HCPCS: 99213

== ENCOUNTER → 2024-06-24 10:55 | Outpatient (BNVA) | payer MEDICARE, OTHER, SELFPAY | PROVIDERS: PCP Registered Nurse; Visit Provider Internal Medicine Endocrinology, Diabetes & Metabolism | DX: M81.0 Age-related osteoporosis without current pathological fracture (principal) | CPT/HCPCS: 99212 ==

== ENCOUNTER 2024-06-27 11:25 | Outpatient (REF) | payer MEDICARE, OTHER, SELFPAY ==
--- OUTSIDE RECORDS SUMMARY | 2024-06-27 12:42 | XMS_ITS | Data Portability ---
Author Organization [facility], Main Office Address [address] [place] [address] [place] [id number] Care Team Providers Care Assistant County Attorney Name Role Phone PRASANNA STILL Side Panel Padder [phone] GUY JACKSON Orthopedic Surgeon [facility] Auto Air Conditioning Mechanic AT PHYSICAL THERAPY - [facility] OTSI SWIFT Primary Care Provider Unavailabl e Assessment No assessment recorded. Plan of Treatment Reminders Order Date Submit Date Provider Last Modified By Organization Details Last Modified Time Details Appointments FOLLOW UP 30MIN 2024 10:15A M JEFF CHEN Not available Not available Not available Lab [...] + calciu m, serum or plasma 2023 JAIDEN [facility] (Centralized Electronic Ordering - All Locations), Patient Can Go To The Location Of Their Choice, 10/12/2023 14:06:50 BMP, serum or plasma 2023 JAIDEN [facility] (Centralized Electronic Ordering - [...] Choice, 10/12/2023 14:06:49 lipid panel, serum 2023 JAIDEN [facility] (Centralized Electronic [...] july [id number] [email or web address] Still MD, [address] [facility] [address], [place], [address], 04/09/2024 13:39:09 neurol ogist referr al - Memory impair ment, has been waitin g on appt since September. repeat s phrase s, not drivin g much due to fear of gettin g lost, 6CIT up 16 from 12 in September, sodium was low but was correc delia. 2023 024 [email or web address] [facility], [address] [facility] [address], [place], [address], 06/02/2023 14:47:56 neurol ogist referr al - 6CIT score 12, was 0 in decemb er, s/p fall in feb with compre ssion fractu re. 2022 023 [email or web address] [facility], [address] [facility], [address], [place], [address], 06/15/2023 13:28:58 Procedures None record ed. Surgeries None record ed. Imaging bone densit y - due for bone densit y, hx osteop orosis and osteop enia on tymlos daily 2023 024 [email or web address] [facility], [address] [facility], [address], [place], [address], 04/24/2023 13:52:05 CT, head, w/o contra st - memory impair ment, r/o mass. 2022 023 [email or web address] [facility], [address] [facility], [address], [place], [address], 10/14/2022 10:52:02 Medication Orders rosuva statin 10 mg tablet 2023 024 JAIDEN [id number], [address] [place], [place], [id number], 10/06/2023 10:54:29 diclof enac 1 % topica l gel 2022 023 [email or web address] [facility] #[id number], [address] [place], [place], [id number], 04/09/2024 11:12:40 Patient TargetsNo targets recorded. Patient Instructions Encounter Date Encounter Id Patient Instructions Last Modified By Organization Details Last Modified Time 06/13/2022 [id number] Follow up as needed. [email or web address] Not available 06/13/2022 11:32:52 09/29/2022 [id number] To call or retur n for worsening or concerns [email or web address] Not available 09/29/2022 10:14:41 04/06/2023 [id number] dash diet: care instructions [email or web address] Not available 04/06/2023 10:50:51 high blood pressure: care instructions [email or web address] Not available 04/06/2023 10:50:50 preventing falls : care instructions [email or web address] Not available 04/06/2023 10:50:50 medicare preventive services guide (female 74yrs and under) [email or web address] Not available 04/06/2023 10:50:50 To call or retur n for worsening or concerns [email or web address] Not available 04/06/2023 10:40:55 10/06/2023 [id number] To call or retur n for worsening or concerns [email or web address] Not available 10/06/2023 10:56:43 04/09/2024 [id number] learning about colon cancer [email or web address] Not available [...] in apr with compression fracture. Referring Physician: Family Patito Small, Encounter Date: 09/29/2022 Neurologist Referral for Mem ory impairment Memory impairment, has been waiting on appt since September. repeats phrases, not driving much due to fear of getting lost, 6CIT up 16 from 12 in September, sodium was low but was corrected. Referring Physician: Family Patito Small, Encounter Date: 04/06/2023 Side Panel Padder Referral for Screening for malignant neoplasm of [...] 10/03/2022 21:27:22 10/04/1910/03/2022 BASIC METAB OLIC PANEL calcium 9.6 mg/dL [...] 10/04/2022 12:56:28 10/04/1910/04/2022 SYPHI LIS TESTI NG RPR titer result [...] 10/19/2022 16:13:00 10/20/1910/19/2022 BASIC METAB OLIC PANEL chloride 95 mmol/ [...] 10/19/2022 16:13:00 10/20/1910/19/2022 BASIC METAB OLIC PANEL anion gap 13 [...] e liz cteri stics deter [facility] by [facility]. It has not been clear ed or appro molly by the Food and Drug Admin istra tion. [facility] [place] , [address] [place] [address] , [place] Not Available [facility] (Centralized Electronic Ordering - [...] To The Location Of Their Choice, 04/12/2023 15:55:04/12/1919 0404/12/2023 COMPL ETE BLOOD COUNT automated NRBC 0.0 [...] 16:27:06 04/12/19 24 04/12/2023 IRON & TIBC % iron saturation 29 % (20-55 ) Not Available [facility] (Centralized Electronic Ordering - All Locations) Patient Can Go To The Location Of Their Choice, 04/12/2023 16:27:06 04/12/19 24 04/12/2023 VITAM IN B12 vitamin B12 1059 pg/mL [...] The Location Of Their Choice, 04/12/2023 16:48:57 05/02/1905/02/2023 COMPL ETE CBC WITH DIFF WBC 5.8 [...] 24 05/02/2023 COMPL ETE CBC WITH DIFF HCT 39.0 [...] 16:26:50 05/02/1905/02/2023 COMPL ETE CBC WITH DIFF RDW-SD 48.2 fL (<47.0 ) high Not Available [facility] (Centralized Electronic Ordering - All Locations) Patient Can Go To The Location Of Their Choice, 05/02/2023 16:26:50 05/02/1905/02/2023 COMPL ETE CBC WITH DIFF MPV 11.0 [...] 05/02/1905/02/2023 COMPL ETE CBC WITH DIFF abs. NRBC 0.0 K/mm3 Not Available [facility] (Centralized Electronic Ordering - All Locations) Patient Can Go To The Location Of Their Choice, 05/02/2023 16:26:50 05/02/1905/02/2023 COMPL ETE CBC WITH DIFF neut # 4.0 K/mm3 (1.3-7 .0) Not Available [facility] (Centralized Electronic Ordering - All Locations) Patient Can Go To The Location Of Their Choice, 05/02/2023 16:26:50 05/02/1905/02/2023 COMPL ETE CBC WITH DIFF lymph # [...] 05/02/1905/02/2023 COMPL ETE CBC WITH DIFF baso 1.0 [...] 05/02/1905/02/2023 COMPR EHENS DES METAB OLIC PANL chloride [...] 05/02/2023 COMPR EHENS DES METAB OLIC PANL Ag [...] 05/02/1905/02/2023 COMPR EHENS DES METAB OLIC PANL alk [...] 05/02/1905/02/2023 COMPR EHENS DES METAB OLIC PANL estimated [...] Location Of Their Choice, 05/02/2023 19:17:14 05/02/1905/02/2023 LIPID PANEL cholesterol, total 306 mg/dL (<200) high Not Available [facility] ([facility] Ordering - All Locations) Patient Can Go To The Location Of Their Choice, 05/02/2023 19:17:15 05/02/1905/02/2023 LIPID PANEL triglyceride 91 mg/dL (<150) Not [...] Go To The Location Of Their Choice, [id number] 05/02/2023 22:42:58 05/02/19 24 05/12/2023 VASOP RESSI N (ADH) vasopressin (adh) 0.8 Refer ence range : 0.0 to 4.7 Unit: pg/mL (NOTE ) This test was devel oped and its perfo rmanc e liz cteri stics deter mined by [facility] . It has not been clear ed or appro molly by the Food and Drug Admin istra tion. [facility] [place] , [facility] [facility] , [place] [address] Not Available [facility] (Centralized Electronic Ordering - All Locations) Patient Can Go To The Location Of Their Choice, [id number] 05/12/2023 15:06:28 10/11/19 24 10/11/2023 CBC WITH DIFFE RENTI AL/PL ATELE T WBC 4.9 x10e3 /uL 3.4-10 .8 Not Available [facility] ([facility]) [address] [place], [address], 10/12/2023 14:06:47 10/11/19 24 10/11/2023 CBC WITH DIFFE RENTI AL/PL ATELE T RBC 4.44 x10e6 /uL 3.77-5 .28 Not Available [facility] ([facility]) [address] [place], [address], 10/12/2023 14:06:47 10/11/19 24 10/11/2023 CBC WITH DIFFE RENTI AL/PL ATELE T hemoglobin 13.8 g/dL 11.1-1 5.9 Not Available [facility] ([facility]) [address] [place], [address], 10/12/2023 14:06:47 10/11/19 24 10/11/2023 CBC WITH DIFFE RENTI AL/PL ATELE T hematocrit 41.6 % 34.0-4 6.6 Not Available [facility] ([facility]) [address] [facility], [place], [address], 10/12/2023 14:06:47 10/11/19 24 10/11/2023 CBC WITH DIFFE RENTI AL/PL ATELE T MCV 94 fL 79-97 Not Available [facility] ([facility]) [address] [facility], [place], [address], 10/12/2023 14:06:47 10/11/19 24 10/11/2023 CBC WITH DIFFE RENTI AL/PL ATELE T MCH 31.1 pg 26.6-3 3.0 Not Available [facility] ([facility]) [address] [facility], [place], [address], 10/12/2023 14:06:47 10/11/19 24 10/11/2023 CBC WITH DIFFE RENTI AL/PL ATELE T MCHC 33.2 g/dL 31.5-3 5.7 Not Available [facility] ([facility]) [address] [facility], [place], [address], 10/12/2023 14:06:47 10/11/19 24 10/11/2023 CBC WITH DIFFE RENTI AL/PL ATELE T RDW 13.4 % 11.7-1 5.4 Not Available [facility] ([facility]) [address] [facility], [place], [address], 10/12/2023 14:06:47 10/11/19 24 10/11/2023 CBC WITH DIFFE RENTI AL/PL ATELE T platelets 321 x10e3 /uL 150-45 0 Not Available [facility] ([facility]) [address] [facility], [place], [address], 10/12/2023 14:06:47 10/11/19 24 10/11/2023 CBC WITH DIFFE RENTI AL/PL ATELE T neutrophils 66 % not estab. Not Available [facility] ([facility]) [address] [facility], [place], [address], 10/12/2023 14:06:47 10/11/19 24 10/11/2023 CBC WITH DIFFE RENTI AL/PL ATELE T lymphs 24 % not estab. Not Available [facility] ([facility]) [address] [facility], [place], [address], 10/12/2023 14:06:47 10/11/19 24 10/11/2023 CBC WITH DIFFE RENTI AL/PL ATELE T monocytes 7 % not estab. Not Available [facility] ([facility]) [address] [facility], [place], [address], 10/12/2023 14:06:47 10/11/19 24 10/11/2023 CBC WITH DIFFE RENTI AL/PL ATELE T eos 2 % not estab. Not Available [facility] ([facility]) [address] [facility], [place], [address], 10/12/2023 14:06:47 10/11/19 24 10/11/2023 CBC WITH DIFFE RENTI AL/PL ATELE T basos 1 % not estab. Not Available [facility] ([facility]) [address] [facility], [place], [address], 10/12/2023 14:06:47 10/11/19 24 10/11/2023 CBC WITH DIFFE RENTI AL/PL ATELE T immature cells ROUTE SUPERVISOR Not Available [facility] ([facility]) [address] [facility], [place], [address], 10/12/2023 14:06:47 10/11/19 24 10/11/2023 CBC WITH DIFFE RENTI AL/PL ATELE T neutrophils (absolute) 3.2 x10e3 /uL 1.4-7. 0 Not Available [facility] ([facility]) [address] [place], [address], 10/12/2023 14:06:47 10/11/19 24 10/11/2023 CBC WITH DIFFE RENTI AL/PL ATELE T lymphs (absolute) 1.2 x10e3 /uL 0.7-3. 1 Not Available [facility] ([facility]) [address] [facility], [place], [address], 10/12/2023 14:06:47 10/11/19 24 10/11/2023 CBC WITH DIFFE RENTI AL/PL ATELE T monocytes(ab solute) 0.4 x10e3 /uL 0.1-0. 9 Not Available [facility] ([facility]) [address] [facility], [place], [address], 10/12/2023 14:06:47 10/11/19 24 10/11/2023 CBC WITH DIFFE RENTI AL/PL ATELE T eos (absolute) 0.1 x10e3 /uL 0.0-0. 4 Not Available [facility] ([facility]) [address] [place], [address], 10/12/2023 14:06:47 10/11/19 24 10/11/2023 CBC WITH DIFFE RENTI AL/PL ATELE T baso (absolute) 0.1 x10e3 /uL 0.0-0. 2 Not Available [facility] ([facility]) [address] [facility], [place], [address], 10/12/2023 14:06:47 10/11/19 24 10/11/2023 CBC WITH DIFFE RENTI AL/PL ATELE T immature granulocytes 0 % not estab. Not Available [facility] ([facility]) [address] [place], [address], 10/12/2023 14:06:47 10/11/19 24 10/11/2023 CBC WITH DIFFE RENTI AL/PL ATELE T immature grans (abs) 0.0 x10e3 /uL 0.0-0. 1 Not Available [facility] ([facility]) [address] [place], [address], 10/12/2023 14:06:47 10/11/19 24 10/11/2023 CBC WITH DIFFE RENTI AL/PL ATELE T NRBC ROUTE SUPERVISOR Not Available [facility] ([facility]) [address] [facility], [place], [address], 10/12/2023 14:06:47 10/11/19 24 10/11/2023 CBC WITH DIFFE RENTI AL/PL ATELE T hematology comments: ROUTE SUPERVISOR Not Available [facility] ([facility]) [address] [facility], [place], [address], 10/12/2023 14:06:47 10/11/19 24 10/12/2023 BASIC METAB OLIC PANEL (8) glucose 83 mg/dL 70-99 Not Available [facility] ([facility]) [address] [place], [address], 10/12/2023 14:06:48 10/11/19 24 10/12/2023 BASIC METAB OLIC PANEL (8) BUN 18 mg/dL 8-27 Not Available [facility] ([facility]) [address] [place], [address], 10/12/2023 14:06:48 10/11/19 24 10/12/2023 BASIC METAB OLIC PANEL (8) creatinine 0.76 mg/dL 0.57-1 .00 Not Available [facility] ([facility]) [address] [facility], [place], [address], 10/12/2023 14:06:48 10/11/19 24 10/12/2023 BASIC METAB OLIC PANEL (8) eGFR 82 mL/mi n/1.7 3 >59 Not Available [facility] ([facility]) [address] [place], [address], 10/12/2023 14:06:48 10/11/19 24 10/12/2023 BASIC METAB OLIC PANEL (8) BUN/creatini ne ratio 24 12-28 Not Available [facility] ([facility]) [address] [place], [address], 10/12/2023 14:06:48 10/11/19 24 10/12/2023 BASIC METAB OLIC PANEL (8) sodium 135 mmol/ L 134-14 4 Not Available [facility] ([facility]) [address] [place], [address], 10/12/2023 14:06:48 10/11/19 24 10/12/2023 BASIC METAB OLIC PANEL (8) potassium 4.8 mmol/ L 3.5-5. 2 Not Available [facility] ([facility]) [address] [place], [address], 10/12/2023 14:06:48 10/11/19 24 10/12/2023 BASIC METAB OLIC PANEL (8) chloride 96 mmol/ L 96-106 Not Available [facility] ([facility]) [address] [place], [address], 10/12/2023 14:06:48 10/11/19 24 10/12/2023 BASIC METAB OLIC PANEL (8) carbon dioxide, total 27 mmol/ L 20-29 Not Available [facility] ([facility]) [address] [place], [address], 10/12/2023 14:06:48 10/11/19 24 10/12/2023 BASIC METAB OLIC PANEL (8) calcium 9.4 mg/dL 8.7-10 .3 Not Available [facility] ([facility]) [address] [place], [address], 10/12/2023 14:06:48 10/11/19 24 10/12/2023 HEPAT IC FUNCT ION PANEL (7) protein, total 6.4 g/dL 6.0-8. 5 Not Available [facility] ([facility]) [address] [place], [address], 10/12/2023 14:06:49 10/11/19 24 10/12/2023 HEPAT IC FUNCT ION PANEL (7) albumin 4.3 g/dL 3.8-4. 8 Not Available [facility] ([facility]) [address] [facility], [place], [address], 10/12/2023 14:06:49 10/11/19 24 10/12/2023 HEPAT IC FUNCT ION PANEL (7) bilirubin, total 0.5 mg/dL 0.0-1. 2 Not Available [facility] ([facility]) [address] [facility], [place], [address], 10/12/2023 14:06:49 10/11/19 24 10/12/2023 HEPAT IC FUNCT ION PANEL (7) bilirubin, direct 0.17 mg/dL 0.00-0 .40 Not Available [facility] ([facility]) [address] [facility], [place], [address], 10/12/2023 14:06:49 10/11/19 24 10/12/2023 HEPAT IC FUNCT ION PANEL (7) alkaline phosphatase 69 IU/L 44-121 Not Available [facility]) [address] [facility], [place], [address], 10/12/2023 14:06:49 10/11/19 24 10/12/2023 HEPAT IC FUNCT ION PANEL (7) AST (SGOT) 22 IU/L 0-40 Not Available [facility] ([facility]) [address] [facility], [place], [address], 10/12/2023 14:06:49 10/11/19 24 10/12/2023 HEPAT IC FUNCT ION PANEL (7) ALT (SGPT) 15 IU/L 0-32 Not Available [facility] ([facility]) [address] [facility], [place], [address], 10/12/2023 14:06:49 10/11/19 24 10/12/2023 LIPID PANEL cholesterol, total 196 mg/dL 100-19 9 Not Available [facility] ([facility]) [address] [place], [address], 10/12/2023 14:06:49 10/11/19 24 10/12/2023 LIPID PANEL triglyceride s 79 mg/dL 0-149 Not Available [facility] ([facility]) [address] [place], [address], 10/12/2023 14:06:49 10/11/19 24 10/12/2023 LIPID PANEL HDL cholesterol 84 mg/dL >39 Not Available [facility] ([facility]) [address] [place], [address], 10/12/2023 14:06:49 10/11/19 24 10/12/2023 LIPID PANEL VLDL cholesterol janeth 14 mg/dL 5-40 Not Available [facility] ([facility]) [address] [place], [address], 10/12/2023 14:06:49 10/11/19 24 10/12/2023 LIPID PANEL LDL chol calc ([facility]) 98 mg/dL 0-99 Not Available [facility] ([facility]) [address] [place], [address], 10/12/2023 14:06:49 10/11/19 24 10/12/2023 LIPID PANEL LDL calc comment: ROUTE SUPERVISOR Not Available [facility] ([facility]) [address] [place], [address], 10/12/2023 14:06:49 10/11/19 24 10/12/2023 PTH INTAC T+JANETH CIUM, IONIZ ED calcium, ionized, serum 5.0 mg/dL 4.5-5. 6 Not Available [facility] ([facility]) [address] [place], [address], 10/12/2023 14:06:50 10/11/19 24 10/12/2023 PTH INTAC T+JANETH CIUMMARIA R ED PTH, intact 42 pg/mL 15-65 Not Available [facility] ([facility]) [address] [facility], [place], [address], 10/12/2023 14:06:50 10/11/19 24 10/12/2023 VITAM IN [...] 1. IOM (Inst itute of Medic ine). 2009. Dieta ry refer ence intak es for calci um and D. [place]: The [facility] Press . 2. Ondina marie [place], Akilah coronado [place], Dale off-F errar i PACK, et al. Evalu ation , treat ment, and preve ntion of vitam in D defic iency : an Endoc rine Socie ty clini janeth pract ice guide line. JCEM. 2010; 96(7) :1911 -30. Not Available [facility] ([facility]) [address] [facility], [place], [address], 10/12/2023 14:06:51 05/07/19 25 05/08/2024 CMP14 +EGFR glucose 86 mg/dL 70-99 normal Not Available [facility] ([facility]) [address] [facility], [place], [address], 05/08/2024 08:07:56 05/07/19 25 05/08/2024 CMP14 +EGFR BUN 16 mg/dL 8-27 normal Not Available [facility] ([facility]) [address] [facility], [place], [address], 05/08/2024 08:07:56 05/07/19 25 05/08/2024 CMP14 +EGFR creatinine 0.70 mg/dL 0.57-1 .00 normal Not Available [facility] ([facility]) [address] [facility], [place], [address], 05/08/2024 08:07:56 05/07/19 25 05/08/2024 CMP14 +EGFR eGFR 90 mL/mi n/1.7 3 >59 normal Not Available [facility] ([facility]) [address] [facility], [place], [address], 05/08/2024 08:07:56 05/07/19 25 05/08/2024 CMP14 +EGFR BUN/creatini ne ratio 23 12-28 normal Not Available [facility] ([facility]) [address] [facility], [place], [address], 05/08/2024 08:07:56 05/07/19 25 05/08/2024 CMP14 +EGFR sodium 136 mmol/ L 134-14 4 normal Not Available [facility] ([facility]) [address] [facility], [place], [address], 05/08/2024 08:07:56 05/07/19 25 05/08/2024 CMP14 +EGFR potassium 4.4 mmol/ L 3.5-5. 2 normal Not Available [facility] ([facility]) [address] [place], [address], 05/08/2024 08:07:56 05/07/19 25 05/08/2024 CMP14 +EGFR chloride 96 mmol/ L 96-106 normal Not Available [facility] ([facility]) [address] [place], [address], 05/08/2024 08:07:56 05/07/19 25 05/08/2024 CMP14 +EGFR carbon dioxide, total 25 mmol/ L 20-29 normal Not Available [facility] ([facility]) [address] [place], [address], 05/08/2024 08:07:56 05/07/19 25 05/08/2024 CMP14 +EGFR calcium 9.7 mg/dL 8.7-10 .3 normal Not Available [facility] ([facility]) [address] [place], [address], 05/08/2024 08:07:56 05/07/19 25 05/08/2024 CMP14 +EGFR protein, total 6.8 g/dL 6.0-8. 5 normal Not Available [facility] ([facility]) [address] [place], [address], 05/08/2024 08:07:56 05/07/19 25 05/08/2024 CMP14 +EGFR albumin 4.6 g/dL 3.8-4. 8 normal Not Available [facility] ([facility]) [address] [place], [address], 05/08/2024 08:07:56 05/07/19 25 05/08/2024 CMP14 +EGFR globulin, total 2.2 g/dL 1.5-4. 5 Not Available [facility] ([facility]) [address] [place], [address], 05/08/2024 08:07:56 05/07/19 25 05/08/2024 CMP14 +EGFR bilirubin, total 0.6 mg/dL 0.0-1. 2 normal Not Available [facility] ([facility]) [address] [place], [address], 05/08/2024 08:07:56 05/07/19 25 05/08/2024 CMP14 +EGFR alkaline phosphatase 64 IU/L 44-121 normal Not Available [facility] ([facility]) [address] [place], [address], 05/08/2024 08:07:56 05/07/19 25 05/08/2024 CMP14 +EGFR AST (SGOT) 23 IU/L 0-40 normal Not Available [facility] ([facility]) [address] [place], [address], 05/08/2024 08:07:56 05/07/19 25 05/08/2024 CMP14 +EGFR ALT (SGPT) 18 IU/L 0-32 normal Not Available [facility] ([facility]) [address] [place], [address], 05/08/2024 08:07:56 05/07/19 25 05/08/2024 CHOL+ TRIG+ HDL+L DL-D cholesterol, total 187 mg/dL 100-19 9 normal Not Available [facility] ([facility]) [address] [place], [address], 05/08/2024 08:07:57 05/07/19 25 05/08/2024 CHOL+ TRIG+ HDL+L DL-D triglyceride s 104 mg/dL 0-149 normal Not Available [facility] ([facility]) [address] [place], [address], 05/08/2024 08:07:57 05/07/19 25 05/08/2024 CHOL+ TRIG+ HDL+L DL-D HDL cholesterol 84 mg/dL >39 normal Not Available [facility] ([facility]) [address] [place], [address], 05/08/2024 08:07:57 05/07/19 25 05/08/2024 CHOL+ TRIG+ HDL+L DL-D LDL chol. (direct) 88 mg/dL 0-99 Not Available [facility] ([facility]) [address] [place], [address], 05/08/2024 08:07:57 05/07/19 25 05/08/2024 CHOL+ TRIG+ HDL+L DL-D LDL direct comment: ROUTE SUPERVISOR Not Available [facility] ([facility]) [address] [place], [address], 05/08/2024 08:07:57 05/07/19 25 05/08/2024 TSH+F REE T4 TSH 2.730 uIU/m L 0.450- 4.500 normal Not Available [facility] ([facility]) [address] [place], [address], 05/08/2024 08:07:58 05/07/1905/08/2024 TSH+F REE T4 T4,free(dire ct) 1.41 NG/dL 0.82-1 .77 normal Not Available [facility] ([facility]) [address] [place], [address], 05/08/2024 08:07:58 05/07/19 25 05/07/2024 CBC WITH DIFFE RENTI AL/PL ATELE T WBC 5.3 x10e3 /uL 3.4-10 .8 normal Not Available [facility] ([facility]) [address] [place], [address], 05/08/2024 08:07:59 05/07/19 25 05/07/2024 CBC WITH DIFFE RENTI AL/PL ATELE T RBC 4.48 x10e6 /uL 3.77-5 .28 normal Not Available [facility] ([facility]) [address] [place], [address], 05/08/2024 08:07:59 05/07/19 25 05/07/2024 CBC WITH DIFFE RENTI AL/PL ATELE T hemoglobin 14.3 g/dL 11.1-1 5.9 normal Not Available [facility] ([facility]) [address] [place], [address], 05/08/2024 08:07:59 05/07/1905/07/2024 CBC WITH DIFFE RENTI AL/PL ATELE T hematocrit 42.4 % 34.0-4 6.6 normal Not Available [facility] ([facility]) [address] [place], [address], 05/08/2024 08:07:59 05/07/19 25 05/07/2024 CBC WITH DIFFE RENTI AL/PL ATELE T MCV 95 fL 79-97 normal Not Available [facility] ([facility]) [address] [place], [address], 05/08/2024 08:07:59 05/07/19 25 05/07/2024 CBC WITH DIFFE RENTI AL/PL ATELE T MCH 31.9 pg 26.6-3 3.0 normal Not Available [facility] ([facility]) [address] [place], [address], 05/08/2024 08:07:59 05/07/19 25 05/07/2024 CBC WITH DIFFE RENTI AL/PL ATELE T MCHC 33.7 g/dL 31.5-3 5.7 normal Not Available [facility] ([facility]) [address] [place], [address], 05/08/2024 08:07:59 05/07/19 25 05/07/2024 CBC WITH DIFFE RENTI AL/PL ATELE T RDW 12.6 % 11.7-1 5.4 Not Available [facility] ([facility]) [address] [place], [address], 05/08/2024 08:07:59 05/07/19 25 05/07/2024 CBC WITH DIFFE RENTI AL/PL ATELE T platelets 318 x10e3 /uL 150-45 0 normal Not Available [facility] ([facility]) [address] [place], [address], 05/08/2024 08:07:59 05/07/19 25 05/07/2024 CBC WITH DIFFE RENTI AL/PL ATELE T neutrophils 63 % not estab. normal Not Available [facility] ([facility]) [address] [facility], [place], [address], 05/08/2024 08:07:59 05/07/19 25 05/07/2024 CBC WITH DIFFE RENTI AL/PL ATELE T lymphs 26 % not estab. normal Not Available [facility] ([facility] [facility] [address] [facility], [place], [address], 05/08/2024 08:07:59 05/07/19 25 05/07/2024 CBC WITH DIFFE RENTI AL/PL ATELE T monocytes 8 % not estab. normal Not Available [facility] ([facility]) [address] [facility], [place], [address], 05/08/2024 08:07:59 05/07/19 25 05/07/2024 CBC WITH DIFFE RENTI AL/PL ATELE T eos 2 % not estab. normal Not Available [facility] ([facility]) [address] [place], [address], 05/08/2024 08:07:59 05/07/19 25 05/07/2024 CBC WITH DIFFE RENTI AL/PL ATELE T basos 1 % not estab. normal Not Available [facility] ([facility]) [address] [facility], [place], [address], 05/08/2024 08:07:59 05/07/19 25 05/07/2024 CBC WITH DIFFE RENTI AL/PL ATELE T immature cells ROUTE SUPERVISOR Not Available [facility] ([facility]) [address] [place], [address], 05/08/2024 08:07:59 05/07/19 25 05/07/2024 CBC WITH DIFFE RENTI AL/PL ATELE T neutrophils (absolute) 3.3 x10e3 /uL 1.4-7. 0 normal Not Available [facility] ([facility]) [address] [facility], [place], [address], 05/08/2024 08:07:59 05/07/19 25 05/07/2024 CBC WITH DIFFE RENTI AL/PL ATELE T lymphs (absolute) 1.4 x10e3 /uL 0.7-3. 1 normal Not Available [facility] ([facility]) [address] [facility], [place], [address], 05/08/2024 08:07:59 05/07/19 25 05/07/2024 CBC WITH DIFFE RENTI AL/PL ATELE T monocytes(ab solute) 0.4 x10e3 /uL 0.1-0. 9 normal Not Available [facility] ([facility]) [address] [facility], [place], [address], 05/08/2024 08:07:59 05/07/19 25 05/07/2024 CBC WITH DIFFE RENTI AL/PL ATELE T eos (absolute) 0.1 x10e3 /uL 0.0-0. 4 normal Not Available [facility] ([facility]) [address] [facility], [place], [address], 05/08/2024 08:07:59 05/07/19 25 05/07/2024 CBC WITH DIFFE RENTI AL/PL ATELE T baso (absolute) 0.0 x10e3 /uL 0.0-0. 2 normal Not Available [facility] ([facility]) [address] [place], [address], 05/08/2024 08:07:59 05/07/19 25 05/07/2024 CBC WITH DIFFE RENTI AL/PL ATELE T immature granulocytes 0 % not estab. Not Available [facility] ([facility]) [address] [facility], [place], [address], 05/08/2024 08:07:59 05/07/19 25 05/07/2024 CBC WITH DIFFE RENTI AL/PL ATELE T immature grans (abs) 0.0 x10e3 /uL 0.0-0. 1 Not Available [facility] ([facility]) [address] [facility], [place], [address], 05/08/2024 08:07:59 05/07/19 25 05/07/2024 CBC WITH DIFFE RENTI AL/PL ATELE T NRBC ROUTE SUPERVISOR Not Available [facility] ([facility]) [address] [facility], [place], [address], 05/08/2024 08:07:59 05/07/19 25 05/07/2024 CBC WITH DIFFE RENTI AL/PL ATELE T hematology comments: ROUTE SUPERVISOR Not Available [facility] ([facility]) [address] [facility], [place], [address], 05/08/2024 08:07:59 10/21/19 23 10/20/2022 CT, head [...] LOTUS: Head CT dated 2019. FINDIN GS: Pipe Threading Machine Operator view findin gs, lines and tubes: None. [...] No acute intrac ranial pathol ogy. WSN: [id number] Physic shirley: Luna Zapien Dictat ed By: Rachell Davila ra, MD Dictat ed Date/T jean claude: 10:53 a Review ed By: Rachell Davila ra, MD Signed By: Rachell Davila ra, MD Signed Date/T jean claude: 10:53 am Transc ribed By: EDNA Transc ribed Date/T jean claude: 10:48 am Patifrannie t Class: Outpat ient [facility] (Outpt Imaging) [address] [place], [address], 10/20/2022 16:44:22 02/21/20 23 02/20/2023 MAMMO , [...] 1 (Negat des) Lay letter mailed to patifrannie t WSN: [id number] Orderi ng Physic shirley: Luna Zapien Dictat ed By: Radha Jones MD Dictat ed Date/T jean claude: 1:07 pm Review ed By: Radha Jones MD Signed By: Radha Jones MD Signed Date/T jean claude: 1:07 pm Transc ribed By: CSB Transc riptio n Date/T jean claude: 12:57 pm Birads : Ever t Class: Outpat ient [id number] (Outpt Imaging) [address] [facility], [place], [address], 02/20/2023 13:18:13 05/31/19 24 05/26/2023 DEXA, axial skele ton Name:Ricky Curtis t ID: [id number] Age:72 years Sex:Fe male Ethnic ity:Wh [...] determ ined by WHO criter ia. WSN: [id number] Orderi Physic shirley: Luna Andrade Dictat ed By: Johnathon Evans rd, Jr, MD Dictat ed Date/T jean claude: 11:26 a Review ed By: Johnathon Evans rd, Jr, MD Signed By: Johnathon Evans rd, Jr, MD Signed Date/T jaen claude: 11:26 am Transc ribed By: CSB Transc ribed Date/T jean claude: 11:24 am Patien t Class: Outpat ient [facility] (Outpt Imaging) [address] [place] [address], [address], 06/01/2023 23:36:32 Result Notes None recorded. Problems Name Problem SNOMED Code Status Onset Date Resolution Date Notes Provider Name and Address Organization Details Recorded Time Acute upper respirat ory infectio n 41110339 Completed 201210/08/2013 RECORDED 08/01/19 13 9:13AM BY NEVAEH TOLLIVER I, KARLAATI ON/ADDEN DUM Not Available [facility] hospital 4 15:04:18 Allergic rhinitis 35436109 Active 2012 KATARZYNA Christensen, [facility] 6 09:53:51 Adult health examinat ion Completed 201210/08/2013 RECORDED 03/04/20 13 9:27AM BY CONNIE WADE MA, KARLAATI ON/ADDEN DUM Miller Andrade [facility] [address] [facility] [address] [facility] [address], [place], [address] , [facility] 0 11:44:17 Anxiety state 815715628 Active 2012 KATARZYNA Christensen, [facility] 6 09:53:32 Benign paroxysm al position al vertigo 563674213 Completed 200610/08/2013 RESOLVED DATE: 08/25/19 07; IMPRESSI ON: SUCCESSF UL TREATMEN T WITH PT; RECORDED 08/25/19 07 8:40AM BY PRASANNA ABEBE MD, OFFICE VISIT Not Available Critical [facility] hospital 4 15:04:19 Screenin g for malignan t neoplasm of breast Completed 200810/08/2013 RECORDED 01/29/20 09 2:16PM BY CONNIE WADE MA, ANNOTATI ON/ADDEN DUM Not Available [facility] 4 15:04:19 Disorder of bursa of shoulder region 82989755 Active 2012 Connie jones [facility] 6 09:53:46 Carpal tunnel syndrome 20811251 Completed 201210/08/2013 RECORDED 08/01/19 13 9:13AM BY MISBAH BELLO ON/ADDEN DUM Not Available Critical access hospital 4 15:04:19 Contact dermatit is due to plants, except food Completed 201210/08/2013 RECORDED 08/01/19 13 9:13AM BY KARLA BELLOATI ON/ADDEN DUM Not Available Critical access hospital 4 15:04:19 Contusio n of ankle 18092859 Completed 201210/08/2013 RECORDED 08/01/19 13 9:13AM BY KARLA BELLOATI ON/ADDEN DUM Not Available Critical access hospital 4 15:04:19 Degenera tion of interver tebral disc 44064551 Completed 200710/08/2013 RECORDED 01/09/20 08 9:47AM BY MISBAH PINEDA ON/ADDEN DUM Not Available [facility] 4 15:04:19 Malaise and fatigue 350982938 Completed 200710/08/2013 RECORDED 01/09/20 08 9:47AM BY MISBAH PINEDA ON/ADDEN DUM Not Available [facility] 4 15:04:20 Influenz a vaccine needed 16591784780 06 Completed 201110/08/2013 RECORDED 02/28/20 12 9:59AM BY CORIE ROMO MA, NURSE VISIT Not Available Critical [facility] hospital 4 15:04:20 Tobacco user 869791682 Completed 201211/10/2015 Removal Reason: quit KATARZYNA Christensen, [facility] 6 09:54:15 Hyperlip idemia 40124076 Active 2012 KATARZYNA Christensen, [facility] 6 09:53:44 [facility] hyperten dragan 71275004 Active 2012 KATARZYNA Christensen, [facility] 6 09:53:49 Essentia l hyperten dragan 59653178 Completed 201210/08/2013 RECORDED 04/20/19 13 1:24AM BY CONNIE WADE MA, ANNOTATI ON/ADDEN DUM KATARZYNA Christensen, [facility] 6 09:53:49 Irritabl e bowel syndrome 57773947 Active 2012 KATARZYNA Christensen, [facility] 6 09:53:25 Irritabl e bowel syndrome 94471638 Completed 201210/08/2013 RECORDED 04/20/19 13 1:24AM BY CONNIE WADE MA, ANNOTATI ON/ADDEN DUM KATARZYNA Christensen, [facility] 6 09:53:25 Disorder of upper respirat ory system 861955191 Completed 201210/08/2013 RECORDED 08/01/19 13 9:12AM BY KARLA BELLOATI ON/ADDEN DUM Not Available Critical access hospital 4 15:04:20 Administ ration of bacteria l and viral vaccine Completed 200710/08/2013 RECORDED 01/09/20 08 1:58PM BY CONNIE WADE MA, OFFICE VISIT Not Available [facility] 4 15:04:20 Osteoart hritis of knee 050604376 Active 2012 IMPRESSI ON: BILATERA L RIGHT > LEFT KATARZYNA Christensen, [facility] 6 09:53:36 Disorder of bone and articula r cartilag e 483804234 Active 2012 KATARZYNA Christensen, [facility] 6 09:53:38 Inflamma tory disorder of extremit y 458350677 Completed 201210/08/2013 RECORDED 08/01/19 13 9:12AM BY KARLA BELLOATI ON/ADDEN DUM Not Available Critical access hospital 4 15:04:21 Screenin g for malignan t neoplasm of colon Completed 201210/08/2013 RECORDED 08/01/19 13 9:13AM BY KARLA BELLOATI ON/ADDEN DUM Not Available Critical access hospital 4 15:04:21 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 [address], [place], [address] , [facility] 0 11:44:17 Benign paroxysm al position al vertigo 075319081 Completed 200610/31/2013 RESOLVED DATE: 08/25/19 07; IMPRESSI ON: SUCCESSF UL TREATMEN T WITH PT; RECORDED 08/25/19 07 8:40AM BY PRASANNA ABEBE MD, OFFICE VISIT Not Available [facility] 4 13:11:11 Screenin g for malignan t neoplasm of breast Completed 200810/31/2013 RECORDED 01/29/20 09 2:16PM BY CONNIE WADE MA, KARLAATI ON/ADDEN DUM Not Available [facility] 4 13:11:11 Carpal tunnel syndrome 63776689 Completed 201210/31/2013 RECORDED 08/01/19 13 9:13AM BY KARLA BELLOATI ON/ADDEN DUM Not Available [facility] 4 13:11:11 Contact dermatit is due to plants, except food Completed 201210/31/2013 RECORDED 08/01/19 13 9:13AM BY KARLA BELLOATI ON/ADDEN DUM Not Available [facility] 4 13:11:11 Contusio n of ankle 60132777 Completed 201210/31/2013 RECORDED 08/01/19 13 9:13AM BY NEVAEH TOLLIVER I ANNOTATI ON/ADDEN DUM Not Available [facility] 4 13:11:11 Degenera tion of interver tebral disc 37544633 Completed 200710/31/2013 RECORDED 01/09/20 08 9:47AM BY MISBAH PINEDA ON/ADDEN DUM Not Available [facility] 4 13:11:11 Malaise and fatigue 008653542 Completed 200710/31/2013 RECORDED 01/09/20 08 9:47AM BY MISBAH PINEDA ON/ADDEN DUM Not Available [facility] 4 13:11:11 Influenz a vaccine needed 28245861897 06 Completed 201110/31/2013 RECORDED 02/28/20 12 9:59AM BY CORIE ROMO MA, NURSE VISIT Not Available [facility] 4 13:11:11 Disorder of upper respirat ory system 732285415 Completed 201210/31/2013 RECORDED 08/01/19 13 9:12AM BY KARLA BELLOATI ON/ADDEN DUM Not Available [facility] 4 13:11:12 Administ ration of bacteria l and viral vaccine Completed 200710/31/2013 RECORDED 01/09/20 08 1:58PM BY CONNIE WADE MA, OFFICE VISIT Not Available [facility] 4 13:11:12 Inflamma tory disorder of extremit y 752431082 Completed 201210/31/2013 RECORDED 08/01/19 13 9:12AM BY NEVAEH TOLLIVER I, ANNOTATI ON/ADDEN DUM Not Available [facility] 4 13:11:12 Screenin g for malignan t neoplasm of colon Completed 201210/31/2013 RECORDED 08/01/19 13 9:13AM BY KARLA BELLOATI ON/ADDEN DUM Not Available [facility] 4 13:11:12 Acute upper respirat ory infectio n 92522237 Completed 201211/01/2013 RECORDED 08/01/19 13 9:13AM BY NEVAEH TOLLIVER I, ANNOTATI ON/ADDEN DUM Not Available [facility] 4 03:54:06 Adult health examinat ion Completed 201211/01/2013 RECORDED 03/04/20 13 9:27AM BY CONNIE WADE MA, ANNOTATI ON/ADDEN DUM Miller Andrade, [facility] [address], [place], [address] , [facility] 0 11:44:17 Benign paroxysm al position al vertigo 740869887 Completed 200611/01/2013 RESOLVED DATE: 08/25/19 07; IMPRESSI ON: SUCCESSF UL TREATMEN T WITH PT; RECORDED 08/25/19 07 8:40AM BY PRASANNA ABEBE MD, OFFICE VISIT Not Available [facility] 4 03:54:06 Screenin g for malignan t neoplasm of breast Completed 200811/01/2013 RECORDED 01/29/20 09 2:16PM BY CONNIE WADE MA, ANNOTATI ON/ADDEN DUM Not Available [facility] 4 03:54:06 Carpal tunnel syndrome 53150036 Completed 201211/01/2013 RECORDED 08/01/19 13 9:13AM BY NEVAEH TOLLIVER I ANNOTATI ON/ADDEN DUM Not Available [facility] 4 03:54:06 Contact dermatit is due to plants, except food Completed 201211/01/2013 RECORDED 08/01/19 13 9:13AM BY KARLA BELLOATI ON/ADDEN DUM Not Available [facility] 4 03:54:06 Contusio n of ankle 14546952 Completed 201211/01/2013 RECORDED 08/01/19 13 9:13AM BY KARLA BLELOATI ON/ADDEN DUM Not Available [facility] 4 03:54:06 Degenera tion of interver tebral disc 01258767 Completed 200711/01/2013 RECORDED 01/09/20 08 9:47AM BY KARLA PINEDAATI ON/ADDEN DUM Not Available Critical access hospital 4 03:54:06 Malaise and fatigue 745318523 Completed 200711/01/2013 RECORDED 01/09/20 08 9:47AM BY KARLA PINEDAATI ON/ADDEN DUM Not Available [facility] 4 03:54:06 Influenz a vaccine needed 59356275417 06 Completed 201111/01/2013 RECORDED 02/28/20 12 9:59AM BY CORIE ROMO MA, NURSE VISIT Not Available [facility] 4 03:54:06 Disorder of upper respirat ory system 309367657 Completed 201211/01/2013 RECORDED 08/01/19 13 9:12AM BY NEVAEH SCHULTZK I, ANNOTATI ON/ADDEN DUM Not Available Critical access hospital 4 03:54:06 Administ ration of bacteria l and viral vaccine Completed 200711/01/2013 RECORDED 01/09/20 08 1:58PM BY CONNIE WADE MA, OFFICE VISIT Not Available Critical access hospital 4 03:54:06 Inflamma tory disorder of extremit y 622047341 Completed 201211/01/2013 RECORDED 08/01/19 13 9:12AM BY NEVAEH TOLLIVER I, ANNOTATI ON/ADDEN DUM Not Available Critical access hospital 4 03:54:06 Screenin g for malignan t neoplasm of colon Completed 201211/01/2013 RECORDED 08/01/19 13 9:13AM BY NEVAEH TOLLIVER I, ANNOTATI ON/ADDEN DUM Not Available Critical access hospital 4 03:54:06 Fatigue 83133394 Completed 08/03/2016 Miller Andrade, [facility] [address], [place], [address] , [facility] 2 12:43:07 Acute sinusiti s 48833679 Completed 08/03/2016 Deanna greene, [facility] 7 09:19:24 Carpal tunnel syndrome 93737630 Active Miller Andrade, [facility] [address] [facility] [address], [place], [address] , [facility] 5 10:29:29 Ex-smoke r 9567370 Active 2015 KATARZYNA Christensen, [facility] 6 09:54:21 Bursitis of hip 70626769 Active 2016 KATARZYNA Christensen, [facility] 7 09:27:27 Osteopen ia 454219445 Active 2006 KATARZYNA Christensen, [facility] 7 10:42:28 Total hysterec ashley Active Connie lockeos, [facility] 11:24:24 Adult health examinat ion Active 2019 RECORDED 03/04/20 13 9:27AM BY CONNIE WADE MA, ANNOTATI ON/ADDEN DUM Miller [facility]rade [facility] [address] [address], [place], [address] , [facility] 0 11:44:17 Headache 98512001 Active 2019 Miller Andrade [facility] [address] [address], [place], [address] , [facility] 0 11:52:48 Rib pain 870843342 Active 2021 JC Parker [facility] [address], [place], [address] , [facility] 2 12:43:07 Disorder of musculos keletal system 805078 Active 2021 JC Parker [address] [address], [place], [address] , [facility] 2 12:43:07 Thoracic back pain 004036430 Active 2021 JC Parker [address] [address], [place], [address] , [facility] 2 12:43:07 Fatigue 63521734 Active 2021 JC Parker [address] [address], [place], [address] , [facility] 2 12:43:07 Osteopor osis 80611935 Active 2021 JC Parker [address] [address], [place], [address] , [facility] 2 14:38:00 Pain of right shoulder joint 04150780789 885584 Active 2021 Miller Andrade, [facility] [address] [facility] [address], [place], [address] , [facility] 2 15:03:17 Compress ion fracture of lumbar spine 481076341 Active 2022 Nitish Santamaria PA-C [address] [facility] [address], [place], [address] , [facility] 3 20:58:58 Altered mental status 720067353 Active 2022 Miller Andarde, [address], [place], [address] , [facility] 3 09:05:04 Urinary tract infectio us disease 17475662 Active 2022 Miller Andrade, [address], [place], [address] , [facility] 3 09:05:39 Anemia 665344523 Active 2022 Miller Andrade, [place] [address] [facility] [address], [place], [address] , [facility] 3 09:06:01 Vitamin D deficien cy 86628786 Active 2022 Miller Andrade, [facility] [address] [place] [address] [address], [place], [address] , [facility] 3 09:06:18 Compress ion fracture of vertebra l column 45663548 Active 2022 Miller Andrade, [facility] [address] [facility] [address], [place], [address] , [facility] 3 11:16:14 Increase d frequenc y of urinatio n 339001722 Active 2022 Miller Andrade, [facility] [address], [place], [address] , [facility] 3 11:54:57 Hyponatr emia 31232727 Active 2022 Miller Andrade, [facility] [address], [place], [address] , [facility] 3 09:57:29 Memory impairme nt 516609730 Active 2022 Miller Andrade, [facility] [address], [place], [address] , [facility] 3 10:12:02 Alzheime r's disease 83307642 Active 2023 Miller Andrade, [facility] [address], [place], [address] , [facility] 4 11:06:27 Problem Notes None recorded. Procedures Surgical History Date Name Laterality Status Provider Name and Address Organization Details Recorded Time 02/21/20 23 Most Recent Mammogram completed Alicia Viramontes [facility] 02/20/2023 13:18:10 02/17/20 21 Mammogram screening completed Trini Nettles [facility] 03/18/2021 11:51:26 03/03/20 20 Six-Item Cognitive Test completed Riri Plata [facility] 03/03/2020 11:28:47 03/01/20 19 Mini-Cog Test completed Connie rivers MA [facility] 03/01/2019 11:29:05 02/28/20 18 Mini-Cog Test completed Connie rivers MA [facility] 02/27/2018 13:43:46 02/08/20 17 Fall Risk Assessment completed Connie rivers MA [facility] 02/07/2017 10:55:09 02/08/20 17 Mini-Cog Test completed Connie rivers MA [facility] 02/07/2017 10:55:55 01/24/20 17 Mammogram one breast completed Barb Suarez [facility] 02/08/2017 10:46:32 11/09/19 17 Date of Last Pap Smear completed Connie rivers MA [facility] 02/07/2017 10:40:27 11/10/19 16 Fall Risk Assessment completed Connie rivers MA [facility] 11/10/2015 10:13:10 11/10/19 16 Mini-Cog Test completed Connie rivers MA [facility] 11/10/2015 10:14:21 09/25/19 15 Carpal tunnel surgery completed Connie rivers MA [facility] 11/10/2015 10:08:06 08/29/19 15 Carpal tunnel surgery completed Connie rivers MA [facility] 11/10/2015 10:07:55 08/20/19 15 Colonoscopy completed Connie rivers MA [facility] 11/10/2015 09:55:39 08/15/19 15 Date of Last Colonoscopy completed Connie rivers MA [facility] 08/15/2014 13:01:24 02/08/20 14 Fall Risk Assessment completed Connie rivers MA [facility] 02/07/2014 10:51:30 02/08/20 14 Mini-Cog Test completed Connie rivers MA [facility] 02/07/2014 10:53:42 11/15/19 07 Most Recent Bone Density completed Connie rivers MA [facility] 03/01/2019 11:14:30 11/15/19 07 Dxa bone density geoffrey vrt fx completed Connie rivers MA [facility] 03/01/2019 11:14:24 03/27/18 78 Total Abdominal Hysterectomy completed Connie rivers MA [facility] 11/10/2015 09:54:53 Tubal Ligation completed Connie rivers MA [facility] 08/15/2014 13:00:33 Breast Biopsy completed Connie rivers MA [facility] 08/15/2014 13:00:33 Tonsillectomy completed Connie rivers MA [facility] 11/05/2013 12:57:25 Total hysterectomy completed Connie rivers MA [facility] 03/01/2019 11:24:10 Hysterectomy completed Yessica Villatoro MA [facility] 03/04/2021 09:16:42 Imaging Results Imaging Date Name Status LastModified by Organiz ation Details LastModified Time 10/20/2022 CT, head + brain, w/o contrast completed [facility] (Outpt Imaging) [address] [place], [address], 10/20/2022 16:44:22 02/20/2023 MAMMO, screening, digital, bilateral completed [id number] [place] [address] (Outpt Imaging) [address] [place], [address], 02/20/2023 13:18:13 05/26/2023 DEXA, axial skeleton completed [facility] (Outpt Imaging) [address] [place], [address], 06/01/2023 23:36:32 Procedure Notes None recorded. Medical Equipment None Reported. Allergies Allergen ID Allergen Name Allergen Category Reaction Reaction Severity Criticality Documentation Date Start Date Code Code System Note Provider Name and Address Organization Details Recorded Time 3666 amoxicill in trihydrat e medicatio n rash Not available Not available 10/08/20132012 03501 8 RxNorm KATARZYNA Cross [facility] 2 14:02:28 3667 ibuprofen medicatio n rash Not available Not available 10/08/20132012 5640 RxNorm Yessica Villatoro MA [facility] 1 09:26:58 Medications Name Sig Start [...] WADE MA, OFFICE VISIT;PE RSCRIBE BY DERMATOL SABINE. Not Available Not Available Not Available Zithromax [...] 4:39PM BY PRASANNA ABEBE MD, MEDICATI ON AUTO-MEHNAZ [...] Updated DateTime 3 163.2 cm 24.4 kg/m2 17862.7 1 g 92 /min 97 % 97 % 97.5 [degF] 134 mm[Hg] 71 mm[Hg] Alan Valente MA [facility] [place] 3 10:34:37 Date Recorded Body height Body mass index (BMI) Body weight Heart rate Oxygen saturation Oxygen saturation in Arterial blood by Pulse oximetry Body temperature Systolic blood pressure Diastolic blood pressure Provider Name and Address Organization Details Last Updated DateTime 3 163.2 cm 23.5 kg/m2 91586.7 5 g 80 /min 96 % 96 % 98.2 [degF] 113 mm[Hg] 58 mm[Hg] Connie coombs MA [facility] 3 09:35:27 Date Recorded Body height Body mass index (BMI) Body weight Heart rate Oxygen saturation Oxygen saturation in Arterial blood by Pulse oximetry Body temperature Systolic blood pressure Diastolic blood pressure Provider Name and Address Organization Details Last Updated DateTime 4 163.2 cm 24.7 kg/m2 90166.8 9 g 77 /min 98 % 98 % 98.2 [degF] 134 mm[Hg] 80 mm[Hg] Rachel Herrera MA [facility] 4 10:28:54 Date Recorded Body height Body mass index (BMI) Body weight Heart rate Oxygen saturation Oxygen saturation in Arterial blood by Pulse oximetry Body temperature Systolic blood pressure Diastolic blood pressure Provider Name and Address Organization Details Last Updated DateTime 4 163.2 cm 24.9 kg/m2 87945.2 9 g 71 /min 96 % 96 % 97.6 [degF] 127 mm[Hg] 64 mm[Hg] [facility] 10:36:23 Date Recorded Body height Body mass index (BMI) Body weight Heart rate Oxygen saturation Oxygen saturation in Arterial blood by Pulse oximetry Body temperature Systolic blood pressure Diastolic blood pressure Provider Name and Address Organization Details Last Updated DateTime 5 163.2 cm 24 kg/m2 61123.5 2 g 83 /min 96 % 96 % 97 [degF] 111 mm[Hg] 58 mm[Hg] Dave hargrove [facility] 5 11:09:23 Social History Question Answer Notes LastModified by Organizat ion Details LastModified Time Tobacco Smoking Status Former Smoker [facility] 11/05/2013 12:57:25 Do You Have An Advance Directive? No Needs MOLST Information not available 09/29/2022 What Is Your Level Of Alcohol Consumption? Moderate 2 Glasses Of Wine In Evening Information not available 11/10/2015 Animal Exposure? No Information not available 03/10/2022 Is Blood Transfusion Acceptable In An Emergency? Yes Information not available 08/15/2014 What Is Your Level Of Caffeine Consumption? None [email or web address] Information not available 03/10/2022 How Much Tobacco Do You Chew? None Information not available 08/15/2014 Are You Currently Employed? No Information not available 03/04/2021 What Type Of Diet Are You Following? REGULAR Information not available 03/04/2021 Which Illicit Or Recreational Drugs Have You Used? None Information not available 11/10/2015 Do You Or Have You Ever Used E-cigarettes Or Vape? Never Used Electronic Cigarettes [email or web address] Information not available 03/10/2022 Education 12 [email or web address] Information no t available 03/10/2022 What Is Your Occupation? None Information not available 11/10/2015 Have There Been Any Changes To Your Family Or Social Situation? No [email or web address] Information not available 03/10/2022 When Did You Quit Smoking? 16+yearssince ana [email or web address] Information not available 03/04/2021 Are There Any Guns Present In Your Home? No [email or web address] Information not available 03/10/2022 Legally Blind In One Or Both Eyes? No [email or web address] Information not available 03/10/2022 Live Alone Or With Others? With Others (Walter) [email or web address] Information not available 03/10/2022 Do You Take Precautions To Prevent Distracted Driving? Yes Information not available 11/10/2015 How Often Do You Need To Have Someone Help You When You Read Instructions, Pamphlets, Or Other Written Material From Your Doctor Or Pharmacy? Sometimes [email or web address] Information not available 03/04/2021 Have You Served [...] OUD But Is Possibly At Risk. No Information not available 03/04/2021 Marital Status [email or web address] Informatio n not available 03/10/2022 What Was The Date Of Your Most Recent Tobacco Screening? 04/09/2024 [email or web address] Information not available 04/09/2024 Total Number Of Stairs In Home 15 [email or web address] Information not available 03/10/2022 How Many Children Do You Have? 2 Information not available 08/15/2014 What Is Your Current Pack Years? 10-19packyear s [email or web address] Information not available 03/10/2022 Do You Use Protection During Sex? No [email or web address] Information not available 03/10/2022 Difficulty Reading? No [email or web address] Information not available 03/10/2022 What Is Your Relationship Status? [email or web address] Information not available 03/10/2022 Do You Use Your Seat Belt Or Car Seat Routinely? Yes [email or web address] Information not available 03/04/2021 Seat Belts Used Routinely Yes [email or web address] Information not available 03/10/2022 Are You Sexually Active? No Information not available 08/15/2014 Smoke Alarm In Home Yes [email or web address] Information not available 03/10/2022 Do You Have Smoke And Carbon Monoxide Detectors In Your Home? Yes [email or web address] Information not available 03/04/2021 At What Age [...] Use Any Illicit Or Recreational Drugs? No Information not available 03/10/2022 Do You Use [...] have difficulty walking or climbing stairs? No [email or web address] Information not available 03/10/2022 Difficulty driving at night? No [email or web address] Information no t available 03/10/2022 Are you able to walk? [email or web address] Information not available 03/10/2022 Are you able to care for yourself? Yes Information not available 11/05/2013 Do you have difficulty dressing or bathing? No [email or web address] Information not available 03/10/2022 What is your exercise level? Occasional Information not available 03/04/2021 Mental Status Question Answer Note LastModified by Organization D etails LastModified Time Do you have difficulty concentrating, remembering or making decisions? No [email or web address] Information no t available 03/10/2022 Family History Relationship Description Onset Age of this Age Resolved Age Notes LastModified by Organization Details LastModified Time Mother Alzheimer's disease [email or web address] Not available 2021 14:02:33 Mother Depressive disorder [email or web address] Not available 2021 14:02:34 Mother Dementia [email or web address] Not available 03/10/2022 14:02:34 Father Cerebrovascu lar accident Not available 14:02:34 Father Hypercholest erolemia [email or web address] Not available 2013 14:03:44 Father Diabetes mellitus [email or web address] Not available 2021 14:02:34 Brother Diabetes mellitus of compli cation s [email or web address] Not available 03/10/2022 14:02:34 Brother Asthma [email or web address] Not available 03/10/2022 14:02:34 Brother Cerebrovascu lar accident 64 Not available 14:02:34 Brother Cerebrovascu lar accident 65 Not available 14:02:34 Brother Diabetes mellitus Not available 2021 14:02:34 Unspecified Relation Diabetes mellitus [email or web address] Not available 2021 14:02:34 Medical History Condition Response Coronary Artery Disease N Other N Gout N Blood Diseases N Kidney Stones N Hyperthyroidism N Breast Cancer N Hypothyroidism N Depression N COPD N Lung Disease N Defects or Inherited Disease N Anesthesia Complications N Headaches/Migraines N Varicose Veins N Anxiety Disorder N Obesity N Vision or Eye Problems N Arthritis N Head Injury/Concussion Y Infertility N Polyps N Congenital Anomalies N Acid Reflux (GERD) [...] high-dose, trivalent, PF 0 completed Trini greene [facility] 12/16/2019 11:04:50 varicella 4 completed KATARZYNA Guevara [facility] 03/04/2021 09:26:49 COVID-19 vaccine, vector-nr, [id number], PF, 0.5 mL 1 completed KATARZYNA Guevara, [facility] 03/04/2021 09:26:49 COVID-19, mRNA, LNP-S, PF, 100 mcg/0.5mL dose or 50 mcg/0.25mL dose 1 completed KATARZYNA Guevara, [facility] 03/04/2021 09:26:49 Influenza, high-dose, trivalent, PF 1 completed KATARZYNA Guevara, [facility] 03/04/2021 09:31:50 Influenza, split virus, quadrivalent, PF 5 completed Not Available [facility] 04/13/2019 02:22:01 Influenza, high-dose, quadrivalent, PF 2 completed Not Available [facility] 04/28/2022 15:10:30 zoster recombinant 2 completed Not Available [facility] 04/28/2022 15:10:30 COVID-19, mRNA, LNP-S, PF, 100 mcg/0.5mL dose or 50 mcg/0.25mL dose 2 completed Not Available [facility] 04/28/2022 15:10:30 COVID-19, mRNA, LNP-S, PF, 100 mcg/0.5mL dose or 50 mcg/0.25mL dose 2 completed Not Available [facility] 04/28/2022 15:10:30 COVID-19, mRNA, LNP-S, bivalent, PF, 50 mcg/0.5 mL or 25mcg/0.25 mL dose 3 completed Not Available [facility] 04/06/2023 10:24:57 Pneumococcal conjugate PCV 13 6 completed Not Available [facility] 04/13/2019 02:21:36 Influenza, high-dose, trivalent, PF 6 completed Not Available [facility] 04/13/2019 02:22:03 pneumococcal polysaccharide PPV23 7 completed Not Available [facility] 04/13/2019 02:21:28 Influenza, high-dose, trivalent, PF 7 completed Not Available [facility] 04/13/2019 02:22:21 Influenza, split virus, trivalent, preservative 7 completed Not Available [facility] 10/08/2013 13:42:56 Tdap 8 completed Not Available [facility] 10/08/2013 13:42:56 Influenza, split virus, trivalent, preservative 1 completed Not Available [facility] 10/08/2013 13:42:56 influenza, seasonal, intradermal, preservative free 2 completed Not Available [facility] 10/08/2013 13:42:56 Influenza, split virus, trivalent, preservative 3 completed Not Available [facility] 10/08/2013 13:42:56 Influenza, high-dose, trivalent, PF 8 completed Not Available [facility] 04/13/2019 02:22:14 Td (adult), 2 Lf tetanus toxoid, preservative free, adsorbed 8 completed Not Available [facility] 04/13/2019 02:21:30 Influenza, high-dose, trivalent, PF 9 completed Not Available [facility] 04/13/2019 02:22:09 Influenza, split virus, trivalent, PF 4 completed Not Available [facility] 04/13/2019 02:21:58 Past Encounters Encounter ID Performer Location Encounter Start Date Encounter Closed Date Diagnosis/Indication Diagnosis SNOMED-CT Code Diagnosis ICD10 Code Diagnosis Note [id number] autoEComm erce [id number] [facility] [place] [address] 08/02/2006 00:00:00 [id number] autoEComm erce [address] [facility] [place] [address] 08/23/2006 00:00:00 [id number] autoEComm erce [address] [facility] [place] [address] 12/29/2006 00:00:00 [id number] autoEComm erce [address] [facility] [place] [address] 07/10/2007 00:00:00 [id number] autoEComm erce [address] [place] [address] 11/05/2007 00:00:00 [id number] autoEComm erce [address] [place] [address] 01/09/2008 00:00:00 [id number] autoEComm erce [address] [place] [address] 11/18/2008 00:00:00 [id number] autoEComm erce [address] [facility] [place] [address] 01/13/2009 00:00:00 [id number] autoEComm erce [address] [facility] [place] [address] 01/28/2009 00:00:00 [id number] autoEComm erce [address] [facility] [place] [address] 07/28/2009 00:00:00 [id number] autoEComm erce [address] [facility] [place] [address] 11/16/2009 00:00:00 [id number] autoEComm erce [address] [facility] [place] [address] 11/24/2010 00:00:00 [id number] autoEComm erce [address] [facility] [place] [address] 08/12/2011 00:00:00 [id number] autoEComm erce [address] [facility] [place] [address] 07/31/2012 00:00:00 [id number] autoEComm erce [address] [facility] [place] [address] 03/04/2013 00:00:00 [id number] Main Office [address] [place] [address] 11/05/2013 13:05:00 11/05/2013 14:12:37 Allergic rhinitis 47672593 Essential hypertension 79468693 Osteoarthr itis of knee 285149564 Irritable bowel syndrome 08815834 Hyperlipidemia 93721686 Fatigue 08125279 [id number] Connie jones MA Main Office [address] [address] [place] [address] 02/07/2014 10:16:49 02/07/2014 11:35:10 Adult health examination 087020277 Essential hypertension 11513413 Needs infl uenza immunization 089132503 Irritable bowel syndrome 01374894 Acute sinusitis 60520165 [id number] Main Office [address] [address] [place] [address] 08/15/2014 12:46:16 08/15/2014 13:34:48 Carpal tunnel syndrome 10623974 Pre-surger y evaluation 135742566 [id number] Main Office [address] [address] [place] [address] 10/14/2014 09:50:53 10/14/2014 10:29:09 Pre-surgery evaluation [id number] Rainey Perioperat des Cardiac Risk was calculated and the risk for perioperat des MN is 0.16 %. Had EKG at last visit, no further work-up necessary. May proceed to surgery as planned. Carpal trini lelia syndrome 90674868 Having right carpal tunnel release with Dr. Jackson 10/21. Irritable bowel syndrome 39698944 Requests refill on med. [id number] Prasanna Abebe MD Main Office [address] [address] [place] [address] 01/22/2015 10:10:34 01/22/2015 10:38:57 Needs influenza immunization 884255981 Z23 [id number] Prasanna Abebe MD Main Office [address] [address] [place] [address] 11/10/2015 09:47:47 11/10/2015 11:14:13 Adult health examination 768523670 Z00.00 Essential hypertension 43027426 I10 Hyperlipidemia 80075123 E78.5 Anxiety state 853439548 F41.1 Administra tion of pneumococcal vaccine 71160294 Z23 Irritable bowel syndrome 13046629 K58.9 Osteoarthr itis of knee 879884929 M17.0 Neck pain 34761303 M54.2 [id number] Prasanna Abebe MD Main Office [address] [address] [place] [address] 03/09/2016 10:19:50 03/09/2016 10:44:39 Influenza vaccine needed 3560098830 106 Z23 [id number] Prasanna Abebe MD Main Office [address] [address] [place] [address] 08/03/2016 10:19:11 08/03/2016 11:13:03 Essential hypertension 19321596 I10 Benign par oxysmal positional vertigo 841200408 H81.10 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 4380103 M70.62 Neck pain 33018616 M54.2 [id number] Prasanna Abebe MD Main Office [address] [address] [place] [address] 10/26/2016 09:19:18 10/26/2016 10:03:05 Essential hypertension 29483349 I10 Bursitis of hip 75518465 M71.559 Hyperlipidemia 15926035 E78.5 [id number] Prasanna Abebe MD Main Office [address] [address] [place] [address] 02/07/2017 10:18:55 02/07/2017 11:38:28 Adult health examination 097197958 Z00.00 Administra tion of pneumococcal vaccine 73803850 Z23 Influenza vaccine needed 6615265155 106 Z23 Irritable bowel syndrome 32414442 K58.9 Bursitis of hip 86693812 M71.559 Thoracic back pain 36243 8004 M54.6 Hyperlipidemia 64794040 E78.5 Fatigue 13738056 R53.83 Essential hypertension 87013298 I10 [id number] Hola Rodriguez MD Main Office [address] [address] [place] [address] 08/17/2017 10:11:48 08/17/2017 11:13:00 Essential hypertension 58795546 I10 BP slightly elevated today, repeat manual BP 150/80 right, 138/80 left. Take med daily as directed, DASH diet Benign par oxysmal positional vertigo 540380231 H81.10 c/o vertigo however this may be related to sinus pain/ pressure and middle ear fluid- allergy sx. Referral provided but she may try allergy meds first Loss of hair 958903652 L 65.9 c/o hair loss. she does have a dermatolog ist in [place], will check labs. Fatigue 51453802 R53.83 Low back pain 245821117 M54.5 Left SI joint pain with sitting for long periods, no other low back pain, will XR, may need physiatry referral Allergic rhinitis 137464 04 J30.9 to start zyrtec daily at bedtime an flonase daily- takes 3-5 days to kick in fully. should use for at least 2 weeks, if not through allergy season. [id number] Prasanna Abebe MD Main Office [address] [facility] [address] [place] [address] 12/15/2017 13:27:01 12/15/2017 15:57:28 Influenza vaccine needed 0737806509 106 Z23 [id number] JC Parker Main Office [address] [address] [place] [address] 02/27/2018 13:18:12 02/27/2018 14:20:30 Adult health examination 960349598 Z00.00 UTD Essential hypertension 48289556 I10 Hepatitis C screening 41 5795230 Z11.59 Requires a tetanus booster 304704769 Z23 Fatigue 37462205 R53.83 Neck pain 07119570 M54.2 s/p fall 4 weeks ago she would like to go to PT again. 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 encouraged to hydrate, rest as much as possible. [id number] Laura Ball Main Office [address] [facility] [address] [place] [address] 01/12/2019 08:10:27 01/12/2019 08:25:41 Influenza vaccine needed 4066349028 106 Z23 [id number] JC Parker Main Office [address] [facility] [address] [place] [address] 03/01/2019 10:51:46 03/01/2019 11:57:54 Adult health examination 431779313 Z00.00 UTD, wishes to hold off on bloodwork this year Essential hypertension 01298717 I10 Postconcus dragan syndrome 55328447 F07.81 Working th rough the pain of grief 049426300 F43.21 lost her baby brother in August from an unexpected stroke, is grieving. [id number] Miller Andrade [facility] Main Office [address] [address] 03/03/2020 10:51:15 03/03/2020 11:58:25 Adult health examination 507551624 Z00.00 UTD, wishes to hold off on bloodwork this year Essential hypertension 54487448 I10 BP borderline . instructed to check 1 hour after taking lisinopril . if still high will increase dose Headache 01030263 R51.[address], will consider migraine med daily if CT negative Fatigue 02749259 R53.83 Screening for cardiovascular system disease 028413051 Z13.6 [id number] Miller Andrade [facility] Main Office [address] [address] 03/04/2021 09:13:09 03/04/2021 10:12:53 Adult health examination 540805383 Z00.00 UTD, declines to go for pap. Essential hypertension 57759071 I10 Osteopenia 067967625 M85 .80 Headache 28398032 R51.9 Fatigue 58703127 R53.83 Screening for cardiovascular system disease 625461373 Z13.6 Rib pain 778664068 R07.8 1 will check XR Thoracic back pain 26838 8004 M54.6 will check XR Disorder o f musculoskeletal system 045183 M85.89 [id number] Miller Andrade [facility] Main Office [address] [address] 03/10/2022 13:58:38 03/10/2022 14:55:58 Adult health examination 891892427 Z00.00 UTD, declines to go for pap. Essential hypertension 16480568 I10 Headache 70394564 R51.9 Fatigue 42223109 R53.83 Hyperlipidemia 87513809 E78.5 Osteoporosis 89337802 M8 1.0 will hold off on treatment for now, continue calcium, start vitd D 2000 units per day and weight bearing exercise. Pain of ri ght shoulder joint 6884415626 9269007 M25.511 [id number] Nitish Santamaria PA-C Main Office [address] [facility] [address] [place] [address] 04/28/2022 14:52:53 04/28/2022 16:01:54 Low back pain 411278798 M54.50 s/p fall last night - rec [...] re-eval Pain in ri ght hip joint 5547111757 91268 M25.551 [id number] Nitish Santamaria PA-C Main Office [address] [facility] [address] [facility] [place] [address] 05/02/2022 14:49:28 05/02/2022 16:09:14 Compression fracture of lumbar spine 732693833 M48.56XA cont ice, calcium/vi t d as dir, and begin calcitonin as dir as well - [facility] available [facility] [place] so will try another -- see below Osteoporosis 20385303 M8 1.0 see above - will also get endo eval rtc 6 wks, sooner prn [id number] JC Parker Main Office [address] [facility] [address] [facility] [place] [address] 05/12/2022 10:29:45 05/12/2022 11:40:54 Compression fracture of vertebral column 80127821 M48.50XD continue meloxicam daily- should be taken during the day to benefit her during the day-0 she will not take it tonight and start it again tomorrow morning. continue calcitonin spray, will add robaxin to use as needed, heat or ice whichever feels best. Will check urine, and bloodwork. orders entered earlier today Increased frequency of urination 834187237 R35.0 Disorder o f bone and articular cartilage 831124456 M24.10 Essential hypertension 23324041 I10 controlled on current meds, continue as directed. [id number] Nitihs Santamaria PA-C Main Office [address] [facility] [address] [place] [address] 06/13/2022 10:19:39 06/13/2022 11:43:46 Compression fracture of vertebral column 99307317 M48.50XD stable, cont meds as dir, rec increase tyl 500mg to schedule 1-2 tabs tid rather than prn, cont alt ice/heat prn Osteoporosis 22931036 M8 1.0 seen by shaista, next 5.12.23 Pain of ri ght shoulder joint 3594665144 6495063 M25.511 pending f/u c neos in a few days, cont PT as dir by neos [id number] JC Parker Main Office [address] [address] [place] [address] 09/29/2022 09:19:28 09/29/2022 10:26:44 Hyponatremia 29308517 E87.1 recheck labs Memory impairment 166674 006 R41.3 sx worsening since Fall in [...] etc. Compressio n fracture of lumbar spine 297746511 M48.56XA takign tylenol as needed, will add diclofenac gel as needed [id number] JC Parker Main Office [address] [facility] [address] [place] [address] 04/06/2023 10:20:31 04/06/2023 11:18:51 Adult health examination 982411359 Z00.00 HM UTD, hx of hysterecto my, no vaginal bleeding, discharge. Essential hypertension 99520218 I10 controlled on current meds, continue as directed. Fatigue 03822222 R53.83 Hyperlipidemia 56885879 E78.5 Osteoporosis 33778257 M8 1.0 tymlos injections daily. Hyponatremia 04424080 E8 7.1 recheck labs Memory impairment 000529 006 R41.3 sx worsening since Fall in Apr. CIT score 16, was 0 in february of 2022. She does repeat some phrases. Address line repeated and she again is unable to remember the address. re- refer to memory disorders clinic. Encouraged brain stimulatio n, getting back into reading, crossword puzzles, sudoku, crocheting or knitting, jigsaw puzzles etc. [id number] Miller Andrade [facility] Main Office [address] [address] 10/06/2023 10:15:17 10/06/2023 11:10:19 Essential hypertension 70298167 I10 controlled on current meds, continue as directed.B P seems to be elevated in the afternoons , take 20mg in the am and 10mg pm- 5pm. Hyperlipidemia 56019624 E78.5 Osteoporosis 36724520 M8 1.0 tymlos injections daily. Hyponatremia 83833616 E8 7.1 recheck labs Compressio n fracture of vertebral column 85440575 M48.50XD [id number] Miller Andrade, [facility] Main Office [address] [place] [address] 04/09/2024 10:46:22 04/09/2024 12:08:07 Adult health examination 284132538 Z00.00 UTD, hx of hysterecto my, no vaginal bleeding, discharge. , mammograms -declines is age 73. colo will have one more visit. pap not needed vaginal exams done Essential hypertension 86258554 I10 controlled on current meds, continue as directed. Fatigue 27606924 R53.83 Hyperlipidemia 96083002 E78.5 Memory impairment 432350 006 R41.3 sx worsening since Fall in Apr. CIT score 12, was 0 in february of 2022. She does repeat some phrases. Address line repeated and she again is unable to remember the address. re- refer to memory disorders clinic. Encouraged brain stimulatio n, getting back into reading, crossword puzzles, sudoku, crocheting or knitting, jigsaw puzzles etc. Screening for malignant neoplasm of colon 419675023 Z12.11 Health Concerns Section Related Observation LastModified by Organization Detai ls LastModified Time None Recorded Concern Status LastModified by Organization Details LastModified Time None Recorded Advance Directives Directive N: needs MOLST Payers Encounter Date Sequence Insurance Name Policy Number Policy Louis Covered Member ID Louis Member ID Guarantor Name 06/13/2022 2 [facility] - MEDICARE ENHANCE (INDEMNITY PLAN) Vickie E Arnesen [id number] Vickie E Arnesen 06/13/2022 1 [place] [employer] Vickie E Arnesen [id number] Vickie E Arnesen 09/29/2022 2 [facility] - MEDICARE ENHANCE (INDEMNITY PLAN) Vickie E Arnesen [id number] Vickie E Arnesen 09/29/2022 1 [place] [employer] Vickie E Arnesen [id number] Vickie E Arnesen 04/06/2023 2 [facility] - MEDICARE ENHANCE (INDEMNITY PLAN) Vickie E Arnesen [id number] Vickie E Arnesen 04/06/2023 1 [place]: [place] [employer] [place] Vickie E Arnesen [id number] Vickie E Arnesen 10/06/2023 2 [facility] - MEDICARE ENHANCE (INDEMNITY PLAN) Vickie E Arnesen [id number] Vickie E Arnesen 10/06/2023 1 [place] Vickie E Arnesen [id number] Vickie E Arnesen 04/09/2024 2 [facility] - MEDICARE ENHANCE (INDEMNITY PLAN) Vickie E Arnesen [id number] Vickie E Arnesen 04/09/2024 1 [place]: [facility] Vickie Barahona [id number] Vickie Barahona Notes Date Note Type Note Provider Name and Address Organization Details Recorded Time 06/13/2022 text/html here for f/u vcf - Pt states that she is feeling better, but the pain is still there - reviewed endo & ortho notes Nitish Santamaria PA-C [address] [facility] [address], [place], [address], [facility] 06/13/2022 13:07:27 09/29/2022 text/html Generic HPI TemplateReported bypatient.Notes:Presen ts with concerns of memory changes.Started after her fall with compression fracture in Apr. She has seen endocrinology and is on tx for osteoporosis. For [address] or get her nails/ hair done. They were unable to go to [place] this year, their bathroom was being remodeled, [...] direction or driven much. JC Parker [address] [facility] [address], [place], [address], [facility] 09/29/2022 10:37:07 04/06/2023 text/html Medicare Annual Wellness [...] but they have not heard back yet. [facility] [address] [place] [address], [place], [address], [facility] 04/06/2023 12:36:27 10/06/2023 text/html Generic HPI TemplateReported [...] 09/10 memory clinic, 10/22 has eye appt. Miller Andrade [facility] [address], [phone], [facility] 10/06/2023 11:24:36 04/09/2024 text/html Medicare Annual Wellness [...] normal here. a few readings 150/ 80s. Miller Andrade, [facility] [address] [address], [place], [address], [facility] 04/09/2024 12:40:01 OBGyn Episode No OBEpisode recorded.
--- OUTSIDE RECORDS SUMMARY | 2024-06-27 12:43 | XMS_ITS | Clinical Summary ---
Author Organization [facility] Address [address] [place] [address] Care Team Providers Care Home Care And Home Health Aides Teacher Name Role Phone Unavailable Primary Care Provider Unavailabl e Social History Tobacco Use Types Packs/Day Years Used Date Smoking Tobacco: Never Assessed Sex and Gender Information Value Date Recorded Sex Assigned at Not on file Gender Identity Not on file Sexual Orientation Not on file Plan of Treatment Not on file
--- OUTSIDE RECORDS SUMMARY | 2024-06-27 12:43 | XMS_ITS | Clinical Summary ---
Author Organization [facility] Address [address] [facility] [place] [address] Phone Care Team Providers Care Pot Fluxer Name Role Phone Prasanna Abebe MD Primary Care Provider [phone] Allergies No known active allergies Medications Medication [...] Vickie Barahona Personal/Famil y Self 1950 [address] [facility] [place] [place] [address] Vickie Barahona Personal/Famil y Self 1950 [address] [facility] [place] [address] Delia Barahonane Personal/Famil y Self 1950 [address] [facility] [place] [address] Delia Barahonane Personal/Famil y Self 1950 [address] [facility] [place] [address] Delia Barahonane Personal/Famil y Self 1950 [address] [facility] [place] [address] Delia Barahonane Personal/Famil y Self 1950 [address] [facility] [place] [place] [address] Delia Barahonane Personal/Famil y Self 1950 [address] [place] [address] Vickie Barahona Personal/Famil y Self 1950 [address] [place] [address] Care Teams Pot Fluxer Relationship Specialty Start Date End Date Prasanna Abebe MD [address] [place] [phone] PCP - General Internal Medicine 07/26/18 Additional Source Comments The information contained in this document represents components of the legal health record. It is not the complete legal health record.[facility]
--- OUTSIDE RECORDS SUMMARY | 2024-06-27 12:43 | XMS_ITS | Clinical Summary ---
Author Organization [facility] [address] [facility] Address [address] [place] [address] Phone Care Team Providers Care Dress Shoe Inspector Name Role Phone Miller Andrade Primary Care Provider [phone] Encounters Date Type Department Care Team Description 04/10/2024 Telephone Gastroenterology - [address] [address] Prasanna Chavez MD from Last [...] 2023 Influenza Vaccine (#1) 2023 RSV Immunization Adult Patie nts (1 - 1-dose 75+ series) 12/19/2023 HIB [...] age to complete [place] [id number] MEDICARE [facility] MEDICARE Care Teams Dress Shoe Inspector Relationship Specialty Start Date End Date Miller Andrade PA [address] [address] PCP - General Physician Grip Wrapper 04/10/24
[2024-07-05 20:58] LABS: N-Telopeptide 52 (see note); NTXCreaRU 32 mg/dL (20-275)
== END 2024-06-27 11:26 | disposition home or self-care (01) ==
LOC: HO.10HDLNP 11:25
PROVIDERS: Visit Provider Internal Medicine Endocrinology, Diabetes & Metabolism
DX: M81.0 Age-related osteoporosis without current pathological fracture (principal)
CPT/HCPCS: 82523

== ENCOUNTER 2024-12-11 11:46 | Outpatient (REF) | payer MEDICARE, OTHER, SELFPAY ==
--- OUTSIDE RECORDS SUMMARY | 2024-12-11 15:14 | XMS_ITS | Clinical Summary ---
Author Organization [facility] Address [address] [place] [address] Phone Care Team Providers Care Automatic Paint Sprayer Operator Name Role Phone Prasanna Abebe MD Primary Care Provider [phone] Allergies No known active allergies Medications lisinopril (PRINIVIL,ZESTR IL) 10 MG tablet lisinopril 10 mg tablet TAKE 1 TABLET BY MOUTH EVERY DAY DIRECTED Active ascorbic acid, vitamin C, (VITAMIN C) 500 mg Chew daily. Active multivitamin per tablet daily. Active calcium carbonate (OS-JANETH) 1,250 mg (500 mg elemental) chewable tablet daily. Acti ve hydrocortisone valerate (WESTCORT) 0.2 % ointment Apply [...] Answer Date Recorded No 08/20/2022 No 08/20/2022 Reliable internet access at home? Not on file 08/20/2022 Device with a working camera? Not on file Comments No Sex and Gender Information Value Date Recorded Sex Assigned at Not on file Legal Sex Female 9:36 AM EDT Gender Identity Not on file Sexual Orientation [...] Hx and SMOKELESS TOBACCO SCREENING 1961 HEPATITIS C SCREENING 1966 COLOGUARD 1993 COLONOSCOPY 1993 COLORECTAL CANCER SCREENING 1993 FIT TEST 1993 FOBT 1993 SIGMOIDOSCOPY 1993 VIRTUAL COLONOSCOPY 1993 ZOSTER VACCINES (1 of 2) 1998 OSTEOPOROSIS SCREENING INITIAL (ONE-TIME) 2013 RSV VACCINE (1 - 1-dose 75+ series) 12/19/2023 INFLUENZA VACCINE (#1) 2024 , 01/12/2019, 12/15/2017, Additional history exists COVID-19 VACCINE (2 - 2024- season) 2024 06/01/2020 Adult Td,Tdap Booster 02/28/2028 02/27/2018, 008 PNEUMOCOCCAL [...] age to complete this topic MENINGOCOCCAL VACCINES (B) Aged Out N o longer eligible based on patient's age to complete this topic Medical Devices Not on file Insurance MEDICARE PART A & B [facility] EN[facility]ANCE SUPPLEMENT MEDICARE PART A & B [facility] MEDIC[facility] ENHANCE SUPPLEMENT MEDICARE PART A & B [facility] MEDIC[facility] ENHANCE SUPPLEMENT MEDICARE PART A & [place] [address] [address] [place] [address] MEDICARE ENHANCE SUPPLEMENT MEDICARE PART A & B [facility] MEDICARE ENHANCE SUPPLEMENT MEDICARE PART A & B [id number] [place] [address] MEDICARE ENHANCE SUPPLEMENT MEDICARE PART A & B [facility] MEDICARE ENHANCE SUPPLEMENT MEDICARE PART A & B [facility] EN[facility]ANCE SUPPLEMENT MEDICARE PART A & B [facility] ENHANCE SUPPLEMENT Care Teams Automatic Paint Sprayer Operator Relationship Specialty Start Date End Date Prasanna Abebe MD [address] [place] [phone] PCP - General Internal Medicine 07/26/18 Additional Source Comments The information contained in this document represents components of the legal health record. It is not the complete legal health record.[facility]
--- OUTSIDE RECORDS SUMMARY | 2024-12-11 15:14 | XMS_ITS | Clinical Summary ---
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
[2024-12-18 07:23] LABS: NTXCreaRU 43 mg/dL (20-275)
== END 2024-12-11 11:47 | disposition home or self-care (01) ==
LOC: HO.LNP 11:46
PROVIDERS: Visit Provider Internal Medicine Endocrinology, Diabetes & Metabolism
DX: M81.0 Age-related osteoporosis without current pathological fracture (principal)
CPT/HCPCS: 82523

== ENCOUNTER 2024-12-23 10:45 | Outpatient (AMB) | payer MEDICARE, OTHER, SELFPAY ==
--- NOTE | 2024-12-23 10:48 | MHC.OFFVIS ---
Vital Signs 12/23/24 10:55 Height 5 ft 3.35 in Weight 139 lb 15.896 oz BMI 24.5 BP 92/48 L Blood Pressure Location Rt brachial Position Sitting Pulse 76 Pulse Source Pulse Oximeter Pulse Oximetry (%) 94 Oxygen Delivery Method Room Air Intake Visit Reasons: f/u osteoporosis Intake Note: Patient present today for Osteoporosis follow up. Harpooner Required: No Accompanied by: Spouse Allergies ibuprofen Adverse Reaction (Unknown, Verified 12/23/24 10:55) Rash HPI Comments Details: 74 YO Female with is seen in consultation at the request of PCP for Osteoporosis. First diagnosed in 2 yrs . Received treatment in the past with Miacalcin , from 05/03/22 to present . Tolerated treatment well without complication. history of pathologic fracture slipped on bathroom room 04/28/22 Compression FX in L1-L3 Has some servings of dietary calcium per day in the form of yogurt . Takes Calcium supplement 820 mg daily in divided doses. Takes 3400 IU of Vitamin D daily. Denies ever using PPI, anticoagulant, antiepileptic or glucocorticoid medication. Does weight bearing exercise 5-7 days per week in the form of barbells . 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 UTD on dental cleanings and sees dentist every 6 months. No planned upcoming dental work or extractions. DXA dated 03/18/21: Femoral neck T-score equals -3.1 Labs: Secondary workup was negative Currently on alendronate 70 mg Q weekly since 02/2024. Urine NTX is suppressed No fx or unual back pain since last visit The patient is a 74-year-old female presenting with osteoporosis management. She has been on alendronate and previously completed a course of Tymlos, which improved her bone density significantly. Her last bone density scan showed borderline osteoporosis, and she is due for another scan in May. The alendronate treatment has been effective in maintaining bone density, as indicated by the suppression of bone turnover markers. The patient is compliant with her medication regimen, taking alendronate once a week. - Alendronate: Used for osteoporosis management, taken once weekly. - Tymlos: Previously used for osteoporosis, completed course with significant improvement in bone density. [facility] Medical History (Updated 05/27/22 @ 13:49 by Hayden Galindo MD) Osteoporosis Surgical History Hx of bone density study Hx of colonoscopy History of carpal tunnel surgery Hx of mammogram Hx of tonsillectomy Hx of tubal ligation Hx of breast biopsy Hx of total hysterectomy Hx of hysterectomy Family History Mother Alzheimer disease Depressive disorder Dementia Father Cerebrovascular accident (CVA) determined by clinical assessment Hypercholesteremia Diabetes mellitus Brother Diabetes mellitus Asthma Brother Diabetes mellitus Social History Household Members: Spouse and Children Alcohol intake: current Alcohol intake frequency: 0-2 drinks per day Alcohol type: wine Patient Tobacco Use Status: Former Tobacco user Tobacco use type: Cigarette Years Smoked: >20 yrs, started age 14 e-Cigarette/Vaping Use: Never Used Physical Exam Vital Signs: Last Vital Signs Pulse 76 12/23/24 10:55 BP 92/48 L 12/23/24 10:55 Pulse Ox 94 12/23/24 10:55 Oxygen Delivery Method Room Air 12/23/24 10:55 BMI result Body Mass Index 24.5 Assessment & Plan Assessment & Plan (1) Osteoporosis: Code(s): M81.0 - Age-related osteoporosis without current pathological fracture Category: Medical Plan: This is a 73-year-old white female with history of osteoporosis currently being treated with alendronate after taking a 18 month course of Tymlos . Secondary workup was negative. Urine NTX is suppressed 1. Osteoporosis The patient is currently on alendronate, which has been effective in maintaining bone density. A bone density scan is scheduled for May to assess the current status. If the scan shows improvement or stability, continuation of the current regimen will be considered. If the results indicate osteopenia, discontinuation of alendronate may be discussed. I discussed with the patient the importance of continuing alendronate until the next bone density scan in May. We reviewed the potential outcomes of the scan and the possibility of adjusting the treatment plan based on the results. The patient was advised to ensure the scan is performed on the same machine as previous tests for consistency. We also discussed the importance of maintaining medication adherence and scheduling follow-up appointments accordingly. - Continue taking alendronate once weekly as prescribed. - Schedule and complete the bone density scan in May. - Ensure the scan is performed on the same machine as previous tests. - Follow up in June to discuss scan results and treatment plan. The patient had an opportunity to ask questions regarding treatment plan. The patient expressed understanding and agreement with the above treatment plan. Patient was informed and verbally consented to the use of an ambient scribe for clinic note documentation during this visit. Medications: Refilled alendronate 70 mg PO QWEEK 12 tabs 0RF alendronate 70 mg PO QWEEK 12 tabs 3RF Coding Level of Care Code Est Pt Level 3 (69938) Diagnoses Osteoporosis M81.0
[2024-12-23 10:55] VITALS: BP 92/48; PULSE 76; O2SAT 94; BMI 24.5
--- OUTSIDE RECORDS SUMMARY | 2024-12-23 12:16 | XMS_ITS | Clinical Summary ---
Author Organization [facility] [address] [facility] Address [address] [place] [address] Phone Care Team Providers Care Administrative Support Manager Name Role Phone Miller Andrade Primary Care Provider [phone] Social History Tobacco Use Types Packs/Day Years [...] 1998 Zoster Vaccines (1 of 2) 1998 Falls Risk Assessment 02/22/2022 Hepatitis C Screening 02/22/2022 Medicare Annual Wellness Visit 02/22/2022 Osteoporosis Screening (Bone Density Screening) 02/22/2022 Social Influencers of Health Screening 02/22/2022 RSV Immunization Adult Patie nts (1 - 1-dose 75+ series) 12/19/2023 Depression Screening 03/27/2024 COVID-19 Vaccine ( - 2023-2 5 season) 2024 Influenza Vaccine (#1) 2024 HIB Vaccines Aged Out No longer eligi [...] age to complete this topic Meningococcal B Vaccine Aged Out No l onger eligible based on patient's age to complete this topic RSV Immunization Patients Un shannon 20 months Aged Out No longer eligible b ased on patient's age to complete this topic Varicella Vaccines Aged Out No longer eligible based on patient's age to complete [place] [id number] MEDICARE [facility] MEDICARE Care Teams Administrative Support Manager Relationship Specialty Start Date End Date Miller Andrade PA [address] [address] PCP - General Physician Jewelry Store Manager 04/10/24
--- OUTSIDE RECORDS SUMMARY | 2024-12-23 12:16 | XMS_ITS | Data Portability ---
Author Organization [facility], Main Office Address [address] [place] [address] Care Team Providers Care Finishing Lab Technician Name Role Phone PRASANNA STILL [employer] [phone] GUY JACKSON Orthopedic Surgeon [facility] Guidance Consultant AT PHYSICAL THERAPY - [facility] OTIS SWIFT Primary Care Provider Unavailabl e Assessment No assessment recorded. Plan of Treatment Reminders Order Date Submit Date Provider Last Modified By Organization Details Last Modified Time Details Appointments FOLLOW UP 30MIN 2024 10:45A M JEFF CHEN Not available Not available Not available Lab lipid panel, serum 2024 025 JAIDEN [facility] (Centralized Electronic Ordering - All Locations), Patient Can Go To The Location Of Their Choice, 08/10/2024 06:12:45 CBC w/ auto diff 2024 025 JAIDEN [...] n D, 25-hyd gene, total, serum 2023 024 JAIDEN [facility] (Centralized Electronic [...] 10/12/2023 14:06:48 CBC w/ auto diff 2023 024 JAIDEN [facility] (Centralized Electronic Ordering - All Locations), Patient Can Go To The Location Of Their Choice, 10/12/2023 14:06:47 hepati c functi on panel, serum 2023 024 JAIDEN [facility] (Centralized [...] july [id number] marlyn Still MD, [address] [facility] [address], [place], [address], 04/09/2024 13:39:09 neurol ogist referr al - Memory impair ment, has been waitin g on appt since September. repeat s phrase s, not drivin g much due to fear of gettin g lost, 6CIT up 16 from 12 in September, sodium was low but was correc delia. 2023 024 [email or web address] [facility], [address] [facility] [address] [facility] [address], [place], [address], 06/02/2023 14:47:56 neurol ogist referr al - 6CIT score 12, was 0 in decemb er, s/p fall in feb with compre ssion fractu re. 2022 023 [facility], [address] [facility], [address], [place], [address], 06/15/2023 13:28:58 Procedures None record ed. Surgeries None record ed. Imaging bone densit y - due for bone densit y, hx osteop orosis and osteop enia on tymlos daily 2023 024 [email or web address] [facility], [address] [facility], [address], [place], [address], 04/24/2023 13:52:05 CT, head, w/o contra st - memory impair ment, r/o mass. 2022 023 [facility], [address] [facility], [address], [place], [address], 10/14/2022 10:52:02 Medication Orders rosuva statin 10 mg tablet 2023 024 JAIDEN [id number], [address], [id number], 10/06/2023 10:54:29 diclof enac 1 % topica l gel 2022 023 [email or web address] [facility][id number], [address], [id number], 04/09/2024 11:12:40 Patient TargetsNo targets recorded. Patient Instructions Encounter Date Encounter Id Patient Instructions Last Modified By Organization Details Last Modified Time 09/29/2022 [id number] To call or retur n for worsening or concerns [email or web address] Not available 09/29/2022 10:14:41 04/06/2023 [id number] dash diet: care instructions [email or web address] Not available 04/06/2023 10:50:51 high blood pressure: care instructions [email or web address] Not available 04/06/2023 10:50:50 preventing falls : care instructions [email or web address] Not available 04/06/2023 10:50:50 medicare preventive services guide (female 74yrs and under) [email or web address] Not available 04/06/2023 10:50:50 To call or retur n for worsening or concerns [email or web address] Not available 04/06/2023 10:40:55 10/06/2023 [id number] To call or retur n for worsening or concerns [email or web address] Not available 10/06/2023 10:56:43 04/09/2024 [id number] learning about colon cancer jthabet Not available [...] or concerns jthabet Not available 04/09/2024 11:40:58 07/15/2024 [id number] high blood pressure: care instructions Not available 07/15/2024 10:31:42 learning about high blood pressure Not available 07/15/2024 10:31:42 Reason for Referral Neurologist Referral for Mem ory impairment 6CIT score 12, was 0 in february, s/p fall in apr with compression fracture. Referring Physician: Miller Andrade, Family Medicine, Encounter Date: 09/29/2022 Neurologist Referral for Mem ory impairment Memory impairment, has been waiting on appt since September. repeats phrases, not driving much due to fear of getting lost, 6CIT up 16 from 12 in September, sodium was low but was corrected. Referring Physician: Miller Andrade [facility], Encounter Date: 04/06/2023 [employer] Referral for Screening for malignant neoplasm of colon Needs colon cancer screening due 2024- july Referring Physician: Miller Andrade [facility], Encounter Date: 04/09/2024 Results Created Date Observation [...] 10/03/2022 21:27:22 10/04/1910/03/2022 BASIC METAB OLIC PANEL estimated GFR creatinine [...] 10/04/19 23 10/04/2022 SYPHI LIS TESTI NG tppa result NOT [...] 10/20/19 23 10/19/2022 BASIC METAB OLIC PANEL BUN 15 mg/dL [...] 10/20/19 23 10/19/2022 BASIC METAB OLIC PANEL sodium 136 mmol/ L (133-1 45) Not Available [facility] (Centralized Electronic Ordering - All Locations) Patient Can Go To The Location Of Their Choice, 10/19/2022 16:13:00 10/20/19 23 10/19/2022 BASIC METAB OLIC PANEL potassium 4.0 mmol/ [...] 10/19/2022 16:13:00 10/20/1910/19/2022 BASIC METAB OLIC PANEL calcium 9.7 mg/dL [...] The Location Of Their Choice, 10/19/2022 16:21:19 10/20/1910/19/2022 OSMOL ALITY , URINE RANDO M osmolality, [...] pg/mL (NOTE ) This test was tran conrad and its perfo rmanc e liz cteri stics deter mined by [employer] . It has not been clear ed or appro molly by the Food and Drug Admin istra tion. Test perfo rmed at [facility] [place] , [address] [place] [address] , [place] [address] Not Available [facility] (Centralized Electronic Ordering - All Locations) Patient Can Go To The Location Of Their Choice, 10/27/2022 14:08:13 04/12/1904/12/2023 IRON results Dupli mckayla order cance lled [...] Choice, 04/12/2023 15:55:04/12/1904/12/2023 COMPL ETE BLOOD COUNT HGB 12.8 gm/dL [...] 04/12/19 24 04/12/2023 COMPL ETE BLOOD COUNT MPV 10.9 fL [...] Choice, 04/12/2023 16:27:06 04/12/1904/12/2023 IRON & TIBC unsaturated iron binding capac 208 mcg/d L (110-3 70) Not Available [facility] (Centralized Electronic Ordering - All Locations) Patient Can Go To The Location Of Their Choice, 04/12/2023 16:27:06 04/12/1904/12/2023 IRON & TIBC est T. iron bind [...] The Location Of Their Choice, 04/12/2023 16:48:56 04/12/19 24 04/12/2023 25OH VITAM IN D 25OH vitamin D [...] 16:26:50 05/02/1905/02/2023 COMPL ETE CBC WITH DIFF HGB 13.1 [...] 24 05/02/2023 COMPL ETE CBC WITH DIFF plt 314 [...] 24 05/02/2023 COMPL ETE CBC WITH DIFF automated NRBC [...] 16:26:50 05/02/1905/02/2023 COMPL ETE CBC WITH DIFF mono# 0.4 [...] 24 05/02/2023 COMPL ETE CBC WITH DIFF eo 1.7 [...] 05/02/2023 COMPR EHENS DES METAB OLIC PANL creatinine [...] 05/02/2023 COMPR EHENS DES METAB OLIC PANL bicarbonate [...] Their Choice, 05/02/2023 19:17:15 05/02/1905/02/2023 LIPID PANEL HDL chol 78 mg/dL (>39) Not Available [facility] (Centralized Electronic Ordering - All Locations) Patient Can Go To The Location Of Their Choice, 05/02/2023 19:17:15 05/02/1905/02/2023 LIPID PANEL LDL cholesterol, calculated 210 mg/dL (0-130 ) high Not Available [facility] (Centralized Electronic Ordering - All Locations) Patient Can Go To The Location Of Their Choice, 05/02/2023 19:17:15 05/02/1905/02/2023 LIPID PANEL non HDL cholesterol (calc) 228 mg/dL (<160) high Not Available [facility] ([facility] Ordering - All Locations) Patient Can Go To The Location Of Their Choice, 05/02/2023 19:17:15 05/02/1905/02/2023 FREE T4 free T4 1.33 NG/dL (0.70- [...] Go To The Location Of Their Choice, [id number] 05/02/2023 22:30:33 05/02/19 24 05/02/2023 OSMOL ALITY , URINE RANDO M osmolality, urine random 426 mOsm/ kg (50-14 00) Not Available [facility] (Centralized Electronic Ordering - All Locations) Patient Can Go To The Location Of Their Choice, [id number] 05/02/2023 22:42:58 05/02/19 24 05/12/2023 VASOP RESSI N (ADH) vasopressin (adh) 0.8 Refer ence range : 0.0 to 4.7 Unit: pg/mL (NOTE ) This test was tran conrad and its perfo rmanc e liz cteri stics deter mined by [facility]. It has not been clear ed or appro molly by the Food and Drug Admin istra tion. Test perfo rmed at [facility] [place] , [address] [place] [address] , [place] [address] Not Available [facility] (Centralized Electronic Ordering - All Locations) Patient Can Go To The Location Of Their Choice, [id number] 05/12/2023 15:06:28 10/11/19 24 10/11/2023 CBC WITH DIFFE RENTI AL/PL ATELE T WBC 4.9 x10e3 /uL 3.4-10 .8 Not Available [facility] ([facility]) [address] [place], [address], 10/12/2023 14:06:47 10/11/19 24 10/11/2023 CBC WITH DIFFE RENTI AL/PL ATELE T RBC 4.44 x10e6 /uL 3.77-5 .28 Not Available [facility] ([facility]) [address], [place], [address], 10/12/2023 14:06:47 10/11/19 24 10/11/2023 CBC WITH DIFFE RENTI AL/PL ATELE T hemoglobin 13.8 g/dL 11.1-1 5.9 Not Available [facility] ([facility]) [address], [place], [address], 10/12/2023 14:06:47 10/11/19 24 10/11/2023 CBC WITH DIFFE RENTI AL/PL ATELE T hematocrit 41.6 % 34.0-4 6.6 Not Available [facility] ([facility]) [address], [place], [address], 10/12/2023 14:06:47 10/11/19 24 10/11/2023 CBC WITH DIFFE RENTI AL/PL ATELE T MCV 94 fL 79-97 Not Available [facility] ([facility]) [address], [place], [address], 10/12/2023 14:06:47 10/11/19 24 10/11/2023 CBC WITH DIFFE RENTI AL/PL ATELE T MCH 31.1 pg 26.6-3 3.0 Not Available [facility] ([facility]) [address], [place], [address], 10/12/2023 14:06:47 10/11/19 24 10/11/2023 CBC WITH DIFFE RENTI AL/PL ATELE T MCHC 33.2 g/dL 31.5-3 5.7 Not Available [facility] ([facility]) [address] [place], [address], 10/12/2023 14:06:47 10/11/19 24 10/11/2023 CBC WITH DIFFE RENTI AL/PL ATELE T RDW 13.4 % 11.7-1 5.4 Not Available [facility] ([facility]) [address] [place], [address], 10/12/2023 14:06:47 10/11/19 24 10/11/2023 CBC WITH DIFFE RENTI AL/PL ATELE T platelets 321 x10e3 /uL 150-45 0 Not Available [facility] ([facility]) [address] [place], [address], 10/12/2023 14:06:47 10/11/19 24 10/11/2023 CBC WITH DIFFE RENTI AL/PL ATELE T neutrophils 66 % not estab. Not Available [facility] ([facility]) [address], [place], [address], 10/12/2023 14:06:47 10/11/19 24 10/11/2023 CBC WITH DIFFE RENTI AL/PL ATELE T lymphs 24 % not estab. Not Available [facility] ([facility]) [address], [place], [address], 10/12/2023 14:06:47 10/11/19 24 10/11/2023 CBC WITH DIFFE RENTI AL/PL ATELE T monocytes 7 % not estab. Not Available [facility] ([facility]) [address], [place], [address], 10/12/2023 14:06:47 10/11/19 24 10/11/2023 CBC WITH DIFFE RENTI AL/PL ATELE T eos 2 % not estab. Not Available [facility] ([facility]) [address], [place], [address], 10/12/2023 14:06:47 10/11/19 24 10/11/2023 CBC WITH DIFFE RENTI AL/PL ATELE T basos 1 % not estab. Not Available [facility] ([facility]) [address], [place], [address], 10/12/2023 14:06:47 10/11/19 24 10/11/2023 CBC WITH DIFFE RENTI AL/PL ATELE T immature cells LAMP SHADE SEWER Not Available [facility] ([facility]) [address], [place], [address], 10/12/2023 14:06:47 10/11/19 24 10/11/2023 CBC WITH DIFFE RENTI AL/PL ATELE T neutrophils (absolute) 3.2 x10e3 /uL 1.4-7. 0 Not Available [facility] ([facility]) [address], [place], [address], 10/12/2023 14:06:47 10/11/19 24 10/11/2023 CBC WITH DIFFE RENTI AL/PL ATELE T lymphs (absolute) 1.2 x10e3 /uL 0.7-3. 1 Not Available [facility] ([facility]) [address], [place], [address], 10/12/2023 14:06:47 10/11/19 24 10/11/2023 CBC WITH DIFFE RENTI AL/PL ATELE T monocytes(ab solute) 0.4 x10e3 /uL 0.1-0. 9 Not Available [facility] ([facility]) [address], [place], [address], 10/12/2023 14:06:47 10/11/19 24 10/11/2023 CBC WITH DIFFE RENTI AL/PL ATELE T eos (absolute) 0.1 x10e3 /uL 0.0-0. 4 Not Available [facility] ([facility]) [address], [place], [address], 10/12/2023 14:06:47 10/11/19 24 10/11/2023 CBC WITH DIFFE RENTI AL/PL ATELE T baso (absolute) 0.1 x10e3 /uL 0.0-0. 2 Not Available [facility] ([facility]) [address] [place], [address], 10/12/2023 14:06:47 10/11/19 24 10/11/2023 CBC WITH DIFFE RENTI AL/PL ATELE T immature granulocytes 0 % not estab. Not Available [facility] ([facility]) [address] [place], [address], 10/12/2023 14:06:47 10/11/19 24 10/11/2023 CBC WITH DIFFE RENTI AL/PL ATELE T immature grans (abs) 0.0 x10e3 /uL 0.0-0. 1 Not Available [facility] ([facility]) [address], [place], [address], 10/12/2023 14:06:47 10/11/19 24 10/11/2023 CBC WITH DIFFE RENTI AL/PL ATELE T NRBC LAMP SHADE SEWER Not Available [facility] ([facility]) [address], [place], [address], 10/12/2023 14:06:47 10/11/19 24 10/11/2023 CBC WITH DIFFE RENTI AL/PL ATELE T hematology comments: LAMP SHADE SEWER Not Available [facility] ([facility]) [address], [place], [address], 10/12/2023 14:06:47 10/11/19 24 10/12/2023 BASIC METAB OLIC PANEL (8) glucose 83 mg/dL 70-99 Not Available [facility] ([facility]) [address], [place], [address], 10/12/2023 14:06:48 10/11/19 24 10/12/2023 BASIC METAB OLIC PANEL (8) BUN 18 mg/dL 8-27 Not Available [facility] ([facility]) [address], [place], [address], 10/12/2023 14:06:48 10/11/19 24 10/12/2023 BASIC METAB OLIC PANEL (8) creatinine 0.76 mg/dL 0.57-1 .00 Not Available [facility] ([facility]) [address], [place], [address], 10/12/2023 14:06:48 10/11/19 24 10/12/2023 BASIC METAB OLIC PANEL (8) eGFR 82 mL/mi n/1.7 3 >59 Not Available [facility] ([facility]) [address] [place], [address], 10/12/2023 14:06:48 10/11/19 24 10/12/2023 BASIC METAB OLIC PANEL (8) BUN/creatini ne ratio 24 12-28 Not Available [facility] ([facility]) [address] [place], [address], 10/12/2023 14:06:48 10/11/19 24 10/12/2023 BASIC METAB OLIC PANEL (8) sodium 135 mmol/ L 134-14 4 Not Available [facility] ([facility]) [address] [place], [address], 10/12/2023 14:06:48 10/11/19 24 10/12/2023 BASIC METAB OLIC PANEL (8) potassium 4.8 mmol/ L 3.5-5. 2 Not Available [facility] ([facility]) [address] [place], [address], 10/12/2023 14:06:48 10/11/19 24 10/12/2023 BASIC METAB OLIC PANEL (8) chloride 96 mmol/ L 96-106 Not Available [facility] ([facility]) [address] [place], [address], 10/12/2023 14:06:48 10/11/19 24 10/12/2023 BASIC METAB OLIC PANEL (8) carbon dioxide, total 27 mmol/ L 20-29 Not Available [facility] ([facility]) [address] [place], [address], 10/12/2023 14:06:48 10/11/19 24 10/12/2023 BASIC METAB OLIC PANEL (8) calcium 9.4 mg/dL 8.7-10 .3 Not Available [facility] ([place] [facility]) [address] [place], [address], 10/12/2023 14:06:48 10/11/19 24 10/12/2023 HEPAT IC FUNCT ION PANEL (7) protein, total 6.4 g/dL 6.0-8. 5 Not Available [facility] ([facility]) [address], [place], [address], 10/12/2023 14:06:49 10/11/19 24 10/12/2023 HEPAT IC FUNCT ION PANEL (7) albumin 4.3 g/dL 3.8-4. 8 Not Available [facility] ([facility]) [address], [place], [address], 10/12/2023 14:06:49 10/11/19 24 10/12/2023 HEPAT IC FUNCT ION PANEL (7) bilirubin, total 0.5 mg/dL 0.0-1. 2 Not Available [facility] ([facility]) [address], [place], [address], 10/12/2023 14:06:49 10/11/19 24 10/12/2023 HEPAT IC FUNCT ION PANEL (7) bilirubin, direct 0.17 mg/dL 0.00-0 .40 Not Available [facility] ([facility]) [address], [place], [address], 10/12/2023 14:06:49 10/11/19 24 10/12/2023 HEPAT IC FUNCT ION PANEL (7) alkaline phosphatase 69 IU/L 44-121 Not Available [facility] ([facility]) [address], [place], [address], 10/12/2023 14:06:49 10/11/19 24 10/12/2023 HEPAT IC FUNCT ION PANEL (7) AST (SGOT) 22 IU/L 0-40 Not Available [facility] ([facility]) [address], [place], [address], 10/12/2023 14:06:49 10/11/19 24 10/12/2023 HEPAT IC FUNCT ION PANEL (7) ALT (SGPT) 15 IU/L 0-32 Not Available [facility] ([facility]) [address] [place], [address], 10/12/2023 14:06:49 10/11/19 24 10/12/2023 LIPID PANEL cholesterol, total 196 mg/dL 100-19 9 Not Available [facility] ([facility]) [address], [place], [address], 10/12/2023 14:06:49 10/11/19 24 10/12/2023 LIPID PANEL triglyceride s 79 mg/dL 0-149 Not Available [facility] ([facility]) [address], [place], [address], 10/12/2023 14:06:49 10/11/19 24 10/12/2023 LIPID PANEL HDL cholesterol 84 mg/dL >39 Not Available [facility] ([facility]) [address], [place], [address], 10/12/2023 14:06:49 10/11/19 24 10/12/2023 LIPID PANEL VLDL cholesterol janeth 14 mg/dL 5-40 Not Available [facility] ([facility]) [address], [place], [address], 10/12/2023 14:06:49 10/11/19 24 10/12/2023 LIPID PANEL LDL chol calc ([facility]) 98 mg/dL 0-99 Not Available [facility] ([facility]) [address] [place], [address], 10/12/2023 14:06:49 10/11/19 24 10/12/2023 LIPID PANEL LDL calc comment: LAMP SHADE SEWER Not Available [facility] ([facility]) [address], [place], [address], 10/12/2023 14:06:49 10/11/19 24 10/12/2023 PTH INTAC T+JANETH CIUM, IONIZ ED calcium, ionized, serum 5.0 mg/dL 4.5-5. 6 Not Available [facility] ([facility]) [address] [place], [address], 10/12/2023 14:06:50 10/11/19 24 10/12/2023 PTH INTAC T+JANETH CIUM, IONIZ ED PTH, intact 42 pg/mL 15-65 Not Available [facility] ([facility]) [address], [place], [address], 10/12/2023 14:06:50 10/11/19 24 10/12/2023 VITAM IN [...] um and D. [place]: [facility] . 2. Ondina marie MF, Akilah coronado [place], Dale off-F errdwight i HOOK, et al. Evalu ation , treat ment, and preve ntion of vitam in D defic iency : an Endoc rine Socie ty clini janeth pract ice guide line. JCEM. 2010; 96(7) :1911 -30. Not Available [facility] ([facility]) [address], [place], [address], 10/12/2023 14:06:51 05/07/19 25 05/08/2024 CMP14 +EGFR glucose 86 mg/dL 70-99 normal Not Available [facility] ([facility]) [address] [place], [address], 05/08/2024 08:07:56 05/07/19 25 05/08/2024 CMP14 +EGFR BUN 16 mg/dL 8-27 normal Not Available [facility] ([facility]) [address] [place], [address], 05/08/2024 08:07:56 05/07/19 25 05/08/2024 CMP14 +EGFR creatinine 0.70 mg/dL 0.57-1 .00 normal Not Available [facility] ([facility]) [address] [place], [address], 05/08/2024 08:07:56 05/07/19 25 05/08/2024 CMP14 +EGFR eGFR 90 mL/mi n/1.7 3 >59 normal Not Available [facility] ([facility]) [address] [place], [address], 05/08/2024 08:07:56 05/07/19 25 05/08/2024 CMP14 +EGFR BUN/creatini ne ratio 23 12-28 normal Not Available [facility] ([facility]) [address] [place], [address], 05/08/2024 08:07:56 05/07/19 25 05/08/2024 CMP14 +EGFR sodium 136 mmol/ L 134-14 4 normal Not Available [facility] ([facility]) [address] [place], [address], 05/08/2024 08:07:56 05/07/19 25 05/08/2024 CMP14 +EGFR potassium 4.4 mmol/ L 3.5-5. 2 normal Not Available [facility] ([facility]) [address] [place], [address], 05/08/2024 08:07:56 05/07/19 25 05/08/2024 CMP14 +EGFR chloride 96 mmol/ L 96-106 normal Not Available [facility] ([facility]) [address] [place], [address], 05/08/2024 08:07:56 05/07/19 25 05/08/2024 CMP14 +EGFR carbon dioxide, total 25 mmol/ L 20-29 normal Not Available [facility] ([facility]) [address] [place], [address], 05/08/2024 08:07:56 05/07/19 25 05/08/2024 CMP14 +EGFR calcium 9.7 mg/dL 8.7-10 .3 normal Not Available [facility] ([facility]) [address] [place], [address], 05/08/2024 08:07:56 05/07/19 25 05/08/2024 CMP14 +EGFR protein, total 6.8 g/dL 6.0-8. 5 normal Not Available [facility] ([facility]) [address] [place], [address], 05/08/2024 08:07:56 05/07/19 25 05/08/2024 CMP14 +EGFR albumin 4.6 g/dL 3.8-4. 8 normal Not Available [facility] ([facility]) [address] [place], [address], 05/08/2024 08:07:56 05/07/19 25 05/08/2024 CMP14 +EGFR globulin, total 2.2 g/dL 1.5-4. 5 Not Available [facility] ([facility]) [address] [place], [address], 05/08/2024 08:07:56 05/07/19 25 05/08/2024 CMP14 +EGFR bilirubin, total 0.6 mg/dL 0.0-1. 2 normal Not Available [facility] ([facility]) [address] [place], [address], 05/08/2024 08:07:56 05/07/19 25 05/08/2024 CMP14 +EGFR alkaline phosphatase 64 IU/L 44-121 normal Not Available [facility] ([facility]) [address] [place], [address], 05/08/2024 08:07:56 05/07/19 25 05/08/2024 CMP14 +EGFR AST (SGOT) 23 IU/L 0-40 normal Not Available [facility] ([facility]) [address] [place], [address], 05/08/2024 08:07:56 05/07/19 25 05/08/2024 CMP14 +EGFR ALT (SGPT) 18 IU/L 0-32 normal Not Available [facility] ([facility]) [address] [place], [address], 05/08/2024 08:07:56 05/07/19 25 05/08/2024 CHOL+ TRIG+ HDL+L DL-D cholesterol, total 187 mg/dL 100-19 9 normal Not Available [facility] ([facility]) [address], [place], [address], 05/08/2024 08:07:57 05/07/19 25 05/08/2024 CHOL+ TRIG+ HDL+L DL-D triglyceride s 104 mg/dL 0-149 normal Not Available [facility] ([facility]) [address] [place], [address], 05/08/2024 08:07:57 05/07/19 25 05/08/2024 CHOL+ TRIG+ HDL+L DL-D HDL cholesterol 84 mg/dL >39 normal Not Available [facility] ([facility]) [address] [place], [address], 05/08/2024 08:07:57 05/07/19 25 05/08/2024 CHOL+ TRIG+ HDL+L DL-D LDL chol. (direct) 88 mg/dL 0-99 Not Available [facility] ([facility]) [address] [place], [address], 05/08/2024 08:07:57 05/07/19 25 05/08/2024 CHOL+ TRIG+ HDL+L DL-D LDL direct comment: LAMP SHADE SEWER Not Available [facility] ([facility]) [address] [place], [address], 05/08/2024 08:07:57 05/07/19 25 05/08/2024 TSH+F REE T4 TSH 2.730 uIU/m L 0.450- 4.500 normal Not Available [facility] ([facility]) [address] [place], [address], 05/08/2024 08:07:58 05/07/19 25 05/08/2024 TSH+F REE T4 T4,free(dire ct) 1.41 NG/dL 0.82-1 .77 normal Not Available [facility] ([facility]) [address] [place], [address], 05/08/2024 08:07:58 05/07/19 25 05/07/2024 CBC WITH DIFFE RENTI AL/PL ATELE T WBC 5.3 x10e3 /uL 3.4-10 .8 normal Not Available [facility] ([facility]) [address] [place], [address], 05/08/2024 08:07:59 05/07/19 25 05/07/2024 CBC WITH DIFFE RENTI AL/PL ATELE T RBC 4.48 x10e6 /uL 3.77-5 .28 normal Not Available [facility] ([facility]) [address] [place], [address], 05/08/2024 08:07:59 05/07/19 25 05/07/2024 CBC WITH DIFFE RENTI AL/PL ATELE T hemoglobin 14.3 g/dL 11.1-1 5.9 normal Not Available [facility] ([facility]) [address], [place], [address], 05/08/2024 08:07:59 05/07/19 25 05/07/2024 CBC WITH DIFFE RENTI AL/PL ATELE T hematocrit 42.4 % 34.0-4 6.6 normal Not Available [facility] ([facility]) [address] [place], [address], 05/08/2024 08:07:59 05/07/19 25 05/07/2024 CBC WITH DIFFE RENTI AL/PL ATELE T MCV 95 fL 79-97 normal Not Available [facility] ([facility]) [address] [place], [address], 05/08/2024 08:07:59 05/07/19 25 05/07/2024 CBC WITH DIFFE RENTI AL/PL ATELE T MCH 31.9 pg 26.6-3 3.0 normal Not Available [facility] ([facility] [facility]) [address] [place], [address], 05/08/2024 08:07:59 05/07/19 25 05/07/2024 CBC WITH DIFFE RENTI AL/PL ATELE T MCHC 33.7 g/dL 31.5-3 5.7 normal Not Available [facility] ([facility]) [address] [place], [address], 05/08/2024 08:07:59 05/07/19 25 05/07/2024 CBC WITH DIFFE RENTI AL/PL ATELE T RDW 12.6 % 11.7-1 5.4 Not Available [facility] ([facility]) [address] [place], [address], 05/08/2024 08:07:59 05/07/19 25 05/07/2024 CBC WITH DIFFE RENTI AL/PL ATELE T platelets 318 x10e3 /uL 150-45 0 normal Not Available [facility] ([facility]) [address], [place], [address], 05/08/2024 08:07:59 05/07/19 25 05/07/2024 CBC WITH DIFFE RENTI AL/PL ATELE T neutrophils 63 % not estab. normal Not Available [facility] ([facility]) [address], [place], [address], 05/08/2024 08:07:59 05/07/19 25 05/07/2024 CBC WITH DIFFE RENTI AL/PL ATELE T lymphs 26 % not estab. normal Not Available [facility] ([facility]) [address], [place], [address], 05/08/2024 08:07:59 05/07/19 25 05/07/2024 CBC WITH DIFFE RENTI AL/PL ATELE T monocytes 8 % not estab. normal Not Available [facility] ([facility]) [address], [place], [address], 05/08/2024 08:07:59 05/07/19 25 05/07/2024 CBC WITH DIFFE RENTI AL/PL ATELE T eos 2 % not estab. normal Not Available [facility] ([facility]) [address], [place], [address], 05/08/2024 08:07:59 05/07/19 25 05/07/2024 CBC WITH DIFFE RENTI AL/PL ATELE T basos 1 % not estab. normal Not Available [facility] ([facility]) [address], [place], [address], 05/08/2024 08:07:59 05/07/19 25 05/07/2024 CBC WITH DIFFE RENTI AL/PL ATELE T immature cells LAMP SHADE SEWER Not Available [facility] ([facility]) [address] [place], [address], 05/08/2024 08:07:59 05/07/19 25 05/07/2024 CBC WITH DIFFE RENTI AL/PL ATELE T neutrophils (absolute) 3.3 x10e3 /uL 1.4-7. 0 normal Not Available [facility] ([facility]) [address] [place], [address], 05/08/2024 08:07:59 05/07/19 25 05/07/2024 CBC WITH DIFFE RENTI AL/PL ATELE T lymphs (absolute) 1.4 x10e3 /uL 0.7-3. 1 normal Not Available [facility] ([facility]) [address] [place], [address], 05/08/2024 08:07:59 05/07/19 25 05/07/2024 CBC WITH DIFFE RENTI AL/PL ATELE T monocytes(ab solute) 0.4 x10e3 /uL 0.1-0. 9 normal Not Available [facility] ([facility]) [address] [place], [address], 05/08/2024 08:07:59 05/07/19 25 05/07/2024 CBC WITH DIFFE RENTI AL/PL ATELE T eos (absolute) 0.1 x10e3 /uL 0.0-0. 4 normal Not Available [facility] ([facility]) [address] [place], [address], 05/08/2024 08:07:59 05/07/19 25 05/07/2024 CBC WITH DIFFE RENTI AL/PL ATELE T baso (absolute) 0.0 x10e3 /uL 0.0-0. 2 normal Not Available [facility] ([facility]) [address] [place], [address], 05/08/2024 08:07:59 05/07/19 25 05/07/2024 CBC WITH DIFFE RENTI AL/PL ATELE T immature granulocytes 0 % not estab. Not Available [facility] ([facility]) [address], [place], [address], 05/08/2024 08:07:59 05/07/19 25 05/07/2024 CBC WITH DIFFE RENTI AL/PL ATELE T immature grans (abs) 0.0 x10e3 /uL 0.0-0. 1 Not Available [facility] ([facility]) [address], [place], [address], 05/08/2024 08:07:59 05/07/19 25 05/07/2024 CBC WITH DIFFE RENTI AL/PL ATELE T NRBC LAMP SHADE SEWER Not Available [facility] ([facility]) [address], [place], [address], 05/08/2024 08:07:59 05/07/19 25 05/07/2024 CBC WITH DIFFE RENTI AL/PL ATELE T hematology comments: LAMP SHADE SEWER Not Available [facility] ([facility]) [address] [place], [address], 05/08/2024 08:07:59 08/10/19 25 08/10/2024 LIPID PANEL cholesterol, total 181 mg/dL 100-19 9 normal Not Available [facility] ([facility]) [address] [place], [address], 08/10/2024 06:12:45 08/10/19 25 08/10/2024 LIPID PANEL triglyceride s 87 mg/dL 0-149 normal Not Available [facility] ([facility]) [address] [place], [address], 08/10/2024 06:12:45 08/10/19 25 08/10/2024 LIPID PANEL HDL cholesterol 78 mg/dL >39 normal Not Available [facility] ([facility]) [address] [place], [address], 08/10/2024 06:12:45 08/10/19 25 08/10/2024 LIPID PANEL VLDL cholesterol janeth 16 mg/dL 5-40 Not Available [facility] ([facility]) [address], [place], [address], 08/10/2024 06:12:45 08/10/19 25 08/10/2024 LIPID PANEL LDL chol calc ([facility]) 87 mg/dL 0-99 Not Available [facility] ([facility]) [address], [place], [address], 08/10/2024 06:12:45 08/10/19 25 08/10/2024 LIPID PANEL LDL calc comment: LAMP SHADE SEWER Not Available [facility] ([facility]) [address], [place], [address], 08/10/2024 06:12:45 10/21/19 23 10/20/2022 CT, head + brain [...] LOTUS: Head CT dated 2019. FINDIN GS: Catering Administrative Assistant view findin gs, lines and tubes: None. [...] No acute intrac ranial pathol ogy. WSN: [id number] Anne wynn Physic shirley: Luna Zapien Dictat ed By: Rachell Davila ra, MD Dictat ed Date/T jean claude: 10:53 a Review ed By: Rachell Davila ra, MD Signed By: Rachell Davila ra, MD Signed Date/T jean claude: 10:53 am Transc ribed By: EDNA Transc ribed Date/T jean claude: 10:48 am Patifrannie t Class: Outpat ient [facility] (Outpt Imaging) [address] [place], [address], 10/20/2022 16:44:22 02/21/20 23 02/20/2023 MAMMO , [...] (Negat des) Lay letter mailed to ever t WSN: [id number] [facility] Physic shirley: Raymond AGUILAR, Luna Mishra Dictat ed By: Radha Jones MD Dictat ed Date/T jean lcaude: 1:07 pm Review ed By: Radha Jones MD Signed By: Radha Jones MD Signed Date/T jean claude: 1:07 pm Transc ribed By: CSB Transc riptio n Date/T jean claude: 12:57 pm Birads : Ever t Class: Outpat ient [email or web address] [facility] (Outpt Imaging) [address] [facility], [place], [address], 02/20/2023 13:18:13 05/31/19 24 05/26/2023 DEXA, axial skele ton Name:Ricky Curtis t ID: [id number] Age:72 years Sex:Fe male Ethnic ity:Wh [...] determ ined by WHO criter ia. WSN: [id number] Orderi ng Physic shirley: Luna Andrade Dictat ed By: Johnathon Evans rd, Jr, MD Dictat ed Date/T jean claude: 11:26 a Review ed By: Johnathon Evans rd, Jr, MD Signed By: Johnathon Evans rd, Jr, MD Signed Date/T jean claude: 11:26 am Transc ribed By: EDNA Transc ribed Date/T jean claude: 11:24 am Patien t Class: Outpat ient [facility] (Outpt Imaging) [address] [place] [address], [address], 06/01/2023 23:36:32 Result Notes Documentation Provider Name and Address Organization Details Recorded Time Ct, Head + Brain, W/o Contrast : CT Head/Brain W/O Contrast INDICATION: R41.3 AMNESIA. TECHNIQUE: Noncontrast head CT using axial technique and reconstructed in axial and coronal planes. Iterative reconstruction techniques are used to optimize dose and image quality. CTDIvol Head: 60.14 mGy, DLP Head: 974 mGy*cm. COMPARISON: Head CT dated 03/09/2020. FINDINGS: Catering Administrative Assistant view findings, lines and tubes: None. BRAIN AND EXTRA-AXIAL SPACES: No parenchymal hemorrhage, midline shift, or mass effect. Jensen-white matter differentiation is well preserved. No acute infarct. Mild prominence of the ventricles and sulci consistent with parenchymal volume loss. Mild low-density white matter changes. No subarachnoid hemorrhage. No subdural or epidural collection. CALVARIUM, SKULL BASE, AND SOFT TISSUES: No fractures or suspicious bony lesions. The paranasal sinuses and mastoid air cells are clear. Visualized orbits and globes are intact. The extracranial soft tissues are unremarkable. IMPRESSION: No acute intracranial pathology. WSN: [id number] Ordering Physician: Miller Zapien Dictated By: Rachell Diaz MD Dictated Date/Time: 10/20/22 10:53 a Reviewed By: Rachell Diaz MD Signed By: Rachell Diaz MD Signed Date/Time: 10/20/22 10:53 am Transcribed By: EDNA Transcribed Date/Time: 10/20/22 10:48 am Patient Class: Outpatient JC Parker [address] [place] [address], [phone], [facility] 10/20/2022 10:57:34 Mammo, Screening, Digital, Bilateral : PROCEDURE: MM Digital Mammo Screening INDICATION: Screening for breast cancer. No known palpable abnormalities. COMPARISON: Prior mammograms most recently dated 02/18/2022. TECHNIQUE: Full-field digital CC and MLO 3D tomosynthesis images of both breasts were acquired. Computer-aided detection (CAD) was utilized in the interpretation of this study. DENSITY: The breast tissue contains scattered areas of fibroglandular density. FINDINGS: No suspicious masses, suspicious microcalcifications, or areas of architectural distortion are seen in either breast to suggest malignancy. IMPRESSION: No mammographic evidence of malignancy. RECOMMENDATION: Annual mammographic screening BI-RADS: 1 (Negative) Lay letter mailed to patient WSN: [id number] Ordering Physician: Miller Zapien Dictated By: Shi Jones MD Dictated Date/Time: 02/20/23 1:07 pm Reviewed By: Shi Jones MD Signed By: Shi Jones MD Signed Date/Time: 02/20/23 1:07 pm Transcribed By: EDNA Tiller Worker Date/Time: 02/20/23 12:57 pm Birads: Patient Class: Outpatient Alicia greene, [facility] 02/20/2023 13:18:13 Dexa, Axial Skeleton : Name:VICKIE BARR Age:72 years Sex:Female Ethnicity:White Date of :1950 Reason: M81.0 OSTEOPOROSIS; Clinical Question(s): Other: Referring Provider:Miller Andrade Study:Dexa Bone Density (Axial) Bone Density: Region BMD T-Score Z-Score Classification AP Spine 0.966 -0.7 1.6 Normal TOTAL HIP 0.611 -2.7 -1.0 Osteoporosis FEM NECK 0.551 -2.7 -0.6 Osteoporosis 10-year Fracture Risk: Fracture Risk Not Reported: FRAX not reported because: Some T-score for Spine Total or Hip Total or Femoral Neck at or below -2.5 Prior hip or vertebral fracture RATE OF CHANGE(SPINE): BMD values have increased 17.4% from previous BMD values have increased 16.0% from baseline RATE OF CHANGE(TOTAL HIP): BMD values have decreased 20.9% from baseline RATE OF CHANGE(FEMORAL NECK): BMD values have increased 8.2% from previous BMD values have decreased in 19.7% from baseline Impression: The patient has osteoporosis as determined by WHO criteria. WSN: [id number] Ordering Physician: Miller Andrade Dictated By: Johnathon Harris Jr, MD Dictated Date/Time: 05/31/23 11:26 a Reviewed By: Johnathon Harris Jr, MD Signed By: Johnathon Harris Jr, MD Signed Date/Time: 05/31/23 11:26 am Transcribed By: EDNA Transcribed Date/Time: 05/31/23 11:24 am Patient Class: Outpatient JC Parker [address] [address], [place], [address], [facility] 06/01/2023 15:14:00 Problems Name Problem SNOMED Code Status Onset Date Resolution Date Notes Provider Name and Address Organization Details Recorded Time Fatigue 63277398 Completed 08/03/2016 JC Parker [address] [address], [place], [phone] , [facility] 2 12:43:07 Acute sinusiti s 48078233 Completed 08/03/2016 De[facility] greene, [facility] 7 09:19:24 Carpal tunnel syndrome 01425696 Active JC Parker [address] [address], [place], [address] , [facility] [place] 5 10:29:29 Total hysterec ashley Active KATARZYNA Christensen, [facility] [place] 9 11:24:24 Osteopen ia 356351952 Active 2006 KATARZYNA Christensen MA [facility] 7 10:42:28 Benign paroxysm al position al vertigo 494907994 Completed 200610/08/2013 RESOLVED DATE: 08/25/19 07; IMPRESSI ON: SUCCESSF UL TREATMEN T WITH PT; RECORDED 08/25/19 07 8:40AM BY PRASANNA ABEBE MD, OFFICE VISIT Not Available [facility] 4 15:04:19 Benign paroxysm al position al vertigo 867604550 Completed 200610/31/2013 RESOLVED DATE: 08/25/19 07; IMPRESSI ON: SUCCESSF UL TREATMEN T WITH PT; RECORDED 08/25/19 07 8:40AM BY PRASANNA ABEBE MD, OFFICE VISIT Not Available [facility] 4 13:11:11 Benign paroxysm al position al vertigo 106360989 Completed 200611/01/2013 RESOLVED DATE: 08/25/19 07; IMPRESSI ON: SUCCESSF UL TREATMEN T WITH PT; RECORDED 08/25/19 07 8:40AM BY PRASANNA ABEBE MD, OFFICE VISIT Not Available [facility] 4 03:54:06 Degenera tion of interver tebral disc Completed 200710/08/2013 RECORDED 01/09/20 08 9:47AM BY MISBAH PINEDA ON/ADDEN DUM Not Available [facility] 4 15:04:19 Malaise and fatigue 311828019 Completed 200710/08/2013 RECORDED 01/09/20 08 9:47AM BY MISBAH PINEDA ON/ADDEN DUM Not Available [facility] 4 15:04:20 Administ ration of bacteria l and viral vaccine Completed 200710/08/2013 RECORDED 01/09/20 08 1:58PM BY CONNIE WADE MA, OFFICE VISIT Not Available [facility] 4 15:04:20 Degenera tion of interver tebral disc Completed 200710/31/2013 RECORDED 01/09/20 08 9:47AM BY KARLA PINEDAATI ON/ADDEN DUM Not Available [facility] 4 13:11:11 Malaise and fatigue 854220374 Completed 200710/31/2013 RECORDED 01/09/20 08 9:47AM BY KARLA PINEDAATI ON/ADDEN DUM Not Available [facility] 4 13:11:11 Administ ration of bacteria l and viral vaccine Completed 200710/31/2013 RECORDED 01/09/20 08 1:58PM BY CONNIE WADE MA, OFFICE VISIT Not Available [facility] 4 13:11:12 Degenera tion of interver tebral disc Completed 200711/01/2013 RECORDED 01/09/20 08 9:47AM BY MISBAH PINEDA ON/ADDEN DUM Not Available [facility] 4 03:54:06 Malaise and fatigue 865949521 Completed 200711/01/2013 RECORDED 01/09/20 08 9:47AM BY BAMBI FUENTES, KARLAATI ON/ADDEN DUM Not Available [facility] 4 03:54:06 Administ ration of bacteria l and viral vaccine Completed 200711/01/2013 RECORDED 01/09/20 08 1:58PM BY CONNIE WADE MA, OFFICE VISIT Not Available [facility] 4 03:54:06 Screenin g for malignan t neoplasm of breast Completed 200810/08/2013 RECORDED 01/29/20 09 2:16PM BY CONNIE WADE MA, ANNOTATI ON/ADDEN DUM Not Available [facility] 4 15:04:19 Screenin g for malignan t neoplasm of breast Completed 200810/31/2013 RECORDED 01/29/20 09 2:16PM BY CONNIE WADE MA, ANNOTATI ON/ADDEN DUM Not Available [facility] 4 13:11:11 Screenin g for malignan t neoplasm of breast Completed 200811/01/2013 RECORDED 01/29/20 09 2:16PM BY CONNIE WADE MA, ANNOTATI ON/ADDEN DUM Not Available [facility] 4 03:54:06 Influenz a vaccine needed 43248604399 06 Completed 201110/08/2013 RECORDED 02/28/20 12 9:59AM BY CORIE ROMO MA, NURSE VISIT Not Available [facility] 4 15:04:20 Influenz a vaccine needed 18217385688 06 Completed 201110/31/2013 RECORDED 02/28/20 12 9:59AM BY CORIE ROMO MA, NURSE VISIT Not Available [facility] 4 13:11:11 Influenz a vaccine needed 56325398931 06 Completed 201111/01/2013 RECORDED 02/28/20 12 9:59AM BY CORIE ROMO MA, NURSE VISIT Not Available [facility] 4 03:54:06 Essentia l hyperten dragan 01601012 Completed 201210/08/2013 RECORDED 04/20/19 13 1:24AM BY CONNIE WADE MA ANNOTATI ON/ADDEN DUM KATARZYNA Christensen, [facility] 6 09:53:49 Irritabl e bowel syndrome 43477952 Completed 201210/08/2013 RECORDED 04/20/19 13 1:24AM BY CONNIE WADE MA ANNOTBHAVNA ON/ADDEN DUM [facility] 6 09:53:25 Acute upper respirat ory infectio n 56940896 Completed 201210/08/2013 RECORDED 08/01/19 13 9:13AM BY KARLA BELLOATI ON/ADDEN DUM Not Available [facility] 4 15:04:18 Carpal tunnel syndrome 42810931 Completed 201210/08/2013 RECORDED 08/01/19 13 9:13AM BY NEVAEH TOLLIVER I ANNOTATI ON/ADDEN DUM Not Available [facility] 4 15:04:19 Contact dermatit is due to plants, except food Completed 201210/08/2013 RECORDED 08/01/19 13 9:13AM BY NEVAEH TOLLIVER I ANNOTATI ON/ADDEN DUM Not Available [facility] 4 15:04:19 Contusio n of ankle 34681740 Completed 201210/08/2013 RECORDED 08/01/19 13 9:13AM BY NEVAEH TOLLIVER I ANNOTATI ON/ADDEN DUM Not Available [facility] 4 15:04:19 Disorder of upper respirat ory system Completed 201210/08/2013 RECORDED 08/01/19 13 9:12AM BY NEVAEH TOLLIVER I ANNOTATI ON/ADDEN DUM Not Available [facility] 4 15:04:20 Inflamma tory disorder of extremit y Completed 201210/08/2013 RECORDED 08/01/19 13 9:12AM BY NEVAEH TOLLIVER I ANNOTATI ON/ADDEN DUM Not Available [facility] 4 15:04:21 Screenin g for malignan t neoplasm of colon Completed 201210/08/2013 RECORDED 08/01/19 13 9:13AM BY NEVAEH TOLLIVER I ANNOTATI ON/ADDEN DUM Not Available [facility] 4 15:04:21 Acute upper respirat ory infectio n 85359200 Completed 201210/31/2013 RECORDED 08/01/19 13 9:13AM BY NEVAEH TOLLIVER I ANNOTATI ON/ADDEN DUM Not Available [facility] 4 13:11:11 Carpal tunnel syndrome 94577333 Completed 201210/31/2013 RECORDED 08/01/19 13 9:13AM BY NEVAEH TOLLIVER I ANNOTATI ON/ADDEN DUM Not Available [facility] 4 13:11:11 Contact dermatit is due to plants, except food Completed 201210/31/2013 RECORDED 08/01/19 13 9:13AM BY NEVAEH TOLLIVER I ANNOTATI ON/ADDEN DUM Not Available [facility] 4 13:11:11 Contusio n of ankle 58047997 Completed 201210/31/2013 RECORDED 08/01/19 13 9:13AM BY NEVAEH TOLLIVER I ANNOTATI ON/ADDEN DUM Not Available [facility] 4 13:11:11 Disorder of upper respirat ory system Completed 201210/31/2013 RECORDED 08/01/19 13 9:12AM BY NEVAEH TOLLIVER I ANNOTATI ON/ADDEN DUM Not Available [facility] 4 13:11:12 Inflamma tory disorder of extremit y Completed 201210/31/2013 RECORDED 08/01/19 13 9:12AM BY NEVAEH TOLLIVER I ANNOTATI ON/ADDEN DUM Not Available [facility] 4 13:11:12 Screenin g for malignan t neoplasm of colon Completed 201210/31/2013 RECORDED 08/01/19 13 9:13AM BY NEVAEH TOLLIVER I ANNOTATI ON/ADDEN DUM Not Available [facility] 4 13:11:12 Acute upper respirat ory infectio n 63245022 Completed 201211/01/2013 RECORDED 08/01/19 13 9:13AM BY NEVAEH TOLLIVER I ANNOTATI ON/ADDEN DUM Not Available [facility] 4 03:54:06 Carpal tunnel syndrome 55337297 Completed 201211/01/2013 RECORDED 08/01/19 13 9:13AM BY NEVAEH TOLLIVER I ANNOTATI ON/ADDEN DUM Not Available [facility] 4 03:54:06 Contact dermatit is due to plants, except food Completed 201211/01/2013 RECORDED 08/01/19 13 9:13AM BY NEVAEH TOLLIVER I ANNOTATI ON/ADDEN DUM Not Available [facility] 4 03:54:06 Contusio n of ankle 23151028 Completed 201211/01/2013 RECORDED 08/01/19 13 9:13AM BY NEVAEH TOLLIVER I ANNOTATI ON/ADDEN DUM Not Available [facility] 4 03:54:06 Disorder of upper respirat ory system Completed 201211/01/2013 RECORDED 08/01/19 13 9:12AM BY NEVAEH TOLLIVER I, ANNOTATI ON/ADDEN DUM Not Available [facility] 4 03:54:06 Inflamma tory disorder of extremit y Completed 201211/01/2013 RECORDED 08/01/19 13 9:12AM BY NEVAEH TOLLIVER I, ANNOTATI ON/ADDEN DUM Not Available [facility] 4 03:54:06 Screenin g for malignan t neoplasm of colon Completed 201211/01/2013 RECORDED 08/01/19 13 9:13AM BY NEVAEH TOLLIVER I, ANNOTATI ON/ADDEN DUM Not Available [facility] 4 03:54:06 Allergic rhinitis 46780835 Active 2012 KATARZYNA Christensen, [facility] 6 09:53:51 Adult health examinat ion Completed 201210/08/2013 RECORDED 03/04/20 13 9:27AM BY CONNIE WADE MA, ANNOTATI ON/ADDEN DUM Miller Andrade, [facility] [address] [address], [facility] KATARZYNA moreno, [address] , [facility] 0 11:44:17 Anxiety state 785033581 Active 2012 KATARZYNA Christensen [facility] 6 09:53:32 Disorder of bursa of shoulder region 16030568 Active 2012 KATARZYNA Christensen, [facility] 6 09:53:46 Tobacco user 862902033 Completed 201211/10/2015 Removal Reason: quit KATARZYNA Christensen, [facility] 6 09:54:15 Hyperlip idemia 86185053 Active 2012 KATARZYNA Christensen, [facility] 6 09:53:44 Essentia l hyperten dragan 93995799 Active 2012 KATARZYNA Christensen, [facility] 6 09:53:49 Irritabl e bowel syndrome 97391981 Active 2012 KATARZYNA Christensen, [facility] 6 09:53:25 Osteoart hritis of knee 051771754 Active 2012 IMPRESSI ON: BILATERA L RIGHT > LEFT KATARZYNA Christensen, [facility] 6 09:53:36 Disorder of bone and articula r cartilag e 484968209 Active 2012 KATARZYNA Christensen, [facility] 6 09:53:38 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 KATARZYNA Christensen, [facility] 6 09:53:41 Adult health examinat ion Completed 201210/31/2013 RECORDED 03/04/20 13 9:27AM BY CONNIE WADE MA, ANNOTATI ON/DARRELL Andrade, [facility] [address] [facility] [facility] [address], [place], [address] , [facility] 0 11:44:17 Adult health examinat ion Completed 201211/01/2013 RECORDED 03/04/20 13 9:27AM BY CONNIE WADE MA, ANNOTATI ON/DARRELL Andrade, [facility] [address] [facility] [address], [place], [address] , [facility] 0 11:44:17 Ex-smoke r 7238961 Active 2015 KATARZYNA Christensen, [facility] 6 09:54:21 Bursitis of hip 40789770 Active 2016 KATARZYNA Christensen, [facility] 7 09:27:27 Adult health examinat ion Active 2019 RECORDED 03/04/20 13 9:27AM BY CONNIE WADE MA, ANNOTATI ON/ADDEN DUM JC Parker [address] [address], [place], [address] , [facility] 0 11:44:17 Headache 92180330 Active 2019 JC Parker [address] [facility] [address] [facility], [place], [address] , [facility] 0 11:52:48 Rib pain 651324241 Active 2021 JC Parker [address] [address], [place], [address] , [facility] 2 12:43:07 Disorder of musculos keletal system 956224 Active 2021 JC Parker [address] [address], [place], [address] , [facility] 2 12:43:07 Thoracic back pain 770822649 Active 2021 JC Parker [address] [address], [place], [address] , [facility] 2 12:43:07 Fatigue 57677635 Active 2021 JC Parker [address] [address], [place], [address] , [facility] 2 12:43:07 Osteopor osis 27957516 Active 2021 JC Parker [address] [place] [address], [place], [address] , [facility] 2 14:38:00 Pain of right shoulder joint 54179501136 825757 Active 2021 JC Parker [address] [place] [address], [place], [address] , [facility] 2 15:03:17 Compress ion fracture of lumbar spine 903188072 Active 2022 Nitish Santamaria PA-C [address] [place] [address], [place], [address] , [facility] 3 20:58:58 Altered mental status 148188579 Active 2022 JC Parker [address] [place] [address], [place], [address] , [facility] 3 09:05:04 Urinary tract infectio us disease 28902387 Active 2022 JC Parker [address] [place] [address], [place], [address] , [facility] 3 09:05:39 Anemia 972058076 Active 2022 [facility] [address] [facility] [address], [place], [address] , [facility] 3 09:06:01 Vitamin D deficien cy 15755805 Active 2022 [facility] [address], [place], [address] , [facility] 3 09:06:18 Compress ion fracture of vertebra l column 04288556 Active 2022 JC Parker [address] [place] [address] [address], [place] [place], [address] , [facility] 3 11:16:14 Increase d frequenc y of urinatio n [id number] Active 2022 Miller Andrade, [facility] [address], [place], [address] , [facility] 3 11:54:57 Hyponatr emia 95076432 Active 2022 Miller Andrade, [facility] [address] [facility] [address], [place], [address] , [facility] 3 09:57:29 Memory impairme nt 920186788 Active 2022 Miller Andrade, [facility] [address] [facility] [address], [place], [address] , [facility] 3 10:12:02 Alzheime r's disease 42034100 Active 2023 Miller Andrade, [facility] [address] [facility] [address], [place], [address] , [facility] 4 11:06:27 Problem Notes None recorded. Procedures Surgical History Date Name Laterality Status Provider Name and Address Organization Details Recorded Time 02/21/20 23 Most Recent Mammogram completed Alicia Viramontes [facility] 02/20/2023 13:18:10 02/17/20 21 Mammogram screening completed Trini Nettles [facility] 03/18/2021 11:51:26 03/03/20 20 Six-Item Cognitive Test completed Riri Plaat [facility] 03/03/2020 11:28:47 03/01/20 19 Mini-Cog Test completed Connie rivers MA [facility] 03/01/2019 11:29:05 02/28/20 18 Mini-Cog Test completed Connie rivers MA [facility] 02/27/2018 13:43:46 02/08/20 17 Fall Risk Assessment completed Connie rivers MA [facility] 02/07/2017 10:55:09 02/08/20 17 Mini-Cog Test completed Connie rivers MA [facility] 02/07/2017 10:55:55 01/24/20 17 Mammogram one breast completed Barb Suarez [facility] 02/08/2017 10:46:32 11/09/19 17 Date of Last Pap Smear completed Connie rivers MA [facility] 02/07/2017 10:40:27 11/10/19 16 Fall Risk Assessment completed Connie rivers MA [facility] 11/10/2015 10:13:10 11/10/19 16 Mini-Cog Test completed Connie rivers MA [facility] 11/10/2015 10:14:21 09/25/19 15 Carpal tunnel surgery completed Connie rivers MA [facility] 11/10/2015 10:08:06 08/29/19 15 Carpal tunnel surgery completed Connie rivers MA [facility] 11/10/2015 10:07:55 08/20/19 15 Colonoscopy completed Connie rivers MA [facility] 11/10/2015 09:55:39 08/15/19 15 Date of Last Colonoscopy completed Connie rivers MA [facility] 08/15/2014 13:01:24 02/08/20 14 Fall Risk Assessment completed Connie rivers MA [facility] 02/07/2014 10:51:30 02/08/20 14 Mini-Cog Test completed Connie rivers MA [facility] 02/07/2014 10:53:42 11/15/19 07 Most Recent Bone Density completed Connie rivers MA [facility] 03/01/2019 11:14:30 11/15/19 07 Dxa bone density geoffrey vrt fx completed Connie rivers MA [facility] 03/01/2019 11:14:24 03/27/18 78 Total Abdominal Hysterectomy completed Connie rivers MA [facility] 11/10/2015 09:54:53 Tubal Ligation completed Connie rivers MA [facility] 08/15/2014 13:00:33 Breast Biopsy completed Connie rivers MA [facility] 08/15/2014 13:00:33 Tonsillectomy completed Connie rivers MA [facility] 11/05/2013 12:57:25 Total hysterectomy completed Connie rivers MA [facility] 03/01/2019 11:24:10 Hysterectomy completed Yessica Villatoro MA [facility] 03/04/2021 09:16:42 Imaging Results None recorded. Procedure Notes None recorded. Medical Equipment None Reported. Allergies Allergen ID Allergen Name Allergen Category Reaction Reaction Severity Criticality Documentation Date Start Date Code Code System Note Provider Name and Address Organization Details Recorded Time 3666 amoxicill in trihydrat e medicatio n rash Not available Not available 10/08/20132012 39743 8 RxNorm KATARZYNA Cross [facility] 2 14:02:28 3667 ibuprofen medicatio n rash Not available Not available 10/08/20132012 5640 RxNorm KATARZYNA Guevara [facility] 1 09:26:58 Medications Name Sig Start [...] tablet TAKE 1 TABLET BY MOUTH ONCE PER DAY WITH A MEAL 09/29 completed Not Available Not Available Not Available lisinopri l 20 mg tablet TAKE 1 TABLET BY MOUTH DAILY WITH 10MG FOR TOTAL DAILY DOSE OF 30MG DAILY 2024 active Not Available Not Available [...] BY MOUTH EVERY DAY IN THE EVENING 2024 active Not Available Not Available Not Avai lable Tums active Not Available Not Availa ble [...] blood by Pulse oximetry Body temperature Systolic And Diastolic Provider Name and Address Organization Details Last Updated DateTime 4 163.2 cm 24.7 kg/m2 18670.8 9 g 77 /min 98 % 98 % 98.2 [degF] 134/80 mm[Hg] Racehl Herrera MA [facility] 4 10:28:54 Date Recorded Body height Body mass index (BMI) Body weight Heart rate Oxygen saturation Oxygen saturation in Arterial blood by Pulse oximetry Body temperature Systolic And Diastolic Provider Name and Address Organization Details Last Updated DateTime 5 163.2 cm 24 kg/m2 46077.5 2 g 83 /min 96 % 96 % 97 [degF] 111/58 mm[Hg] Dave hargrove MA [facility] 5 11:09:23 Date Recorded Body height Body mass index (BMI) Body weight Heart rate Oxygen saturation Oxygen saturation in Arterial blood by Pulse oximetry Body temperature Systolic And Diastolic Provider Name and Address Organization Details Last Updated DateTime 5 163.2 cm 24.2 kg/m2 64238.1 2 g 71 /min 99 % 99 % 97.5 [degF] 126/67 mm[Hg] Dave hargrove MA [facility] 5 10:17:28 Date Recorded Body height Body mass index (BMI) Body weight Heart rate Oxygen saturation Oxygen saturation in Arterial blood by Pulse oximetry Body temperature Systolic And Diastolic Provider Name and Address Organization Details Last Updated DateTime 3 163.2 cm 23.5 kg/m2 63747.7 5 g 80 /min 96 % 96 % 98.2 [degF] 113/58 mm[Hg] Connie coombs MA [facility] 3 09:35:27 Date Recorded Body height Body mass index (BMI) Body weight Heart rate Oxygen saturation Oxygen saturation in Arterial blood by Pulse oximetry Body temperature Systolic And Diastolic Provider Name and Address Organization Details Last Updated DateTime 4 163.2 cm 24.9 kg/m2 20604.2 9 g 71 /min 96 % 96 % 97.6 [degF] 127/64 mm[Hg] Frida Meek [facility] 4 10:36:23 Social History Question Answer Notes LastModified by Organizat ion Details LastModified Time Tobacco Smoking Status Former Smoker Connie Devine MA [facility] 11/05/2013 12:57:25 Do You Have An Advance Directive? No Needs MOLST Information not available 09/29/2022 Animal Exposure? No Informat ion not available 03/10/2022 Is Blood Transfusion Acceptable In An Emergency? Yes Information not available 08/15/2014 What Is Your Level Of Caffeine Consumption? None Information not available 03/10/2022 How Much Tobacco Do You Chew? None Information not available 08/15/2014 What Type Of Diet Are You Following? REGULAR Information not available 03/04/2021 Which Illicit Or Recreational Drugs Have You Used? None Information not available 11/10/2015 Education 12 [email or web address] Information no t available 03/10/2022 Have There Been Any Changes To Your Family Or Social Situation? No [email or web address] Information not available 03/10/2022 When Did You Quit Smoking? 16+yearssinc elastcigaret te Information not available 03/04/2021 Are There Any Guns Present In Your Home? No [email or web address] Information not available 03/10/2022 Legally Blind In One Or Both Eyes? No [email or web address] Information not available 03/10/2022 Live Alone Or With Others? With Others (Walter) [email or web address] Information not available 03/10/2022 Do You Take Precautions To Prevent Distracted Driving? Yes Information not available 11/10/2015 How Often Do You Need To Have Someone Help You When You Read Instructions, Pamphlets, Or Other Written Material From Your Doctor Or Pharmacy? Sometimes [email or web address] Information not available 03/04/2021 Have You Served [...] OUD But Is Possibly At Risk. No [email or web address] Information not available 03/04/2021 Marital Status [email or web address] Informatio n not available 03/10/2022 What Was The Date Of Your Most Recent Tobacco Screening? 04/09/2024 [email or web address] Information not available 04/09/2024 Total Number Of Stairs In Home 15 [email or web address] Information not available 03/10/2022 How Many Children Do You Have? 2 Information not available 08/15/2014 What Is Your Current Pack Years? 10-19packyea rs [email or web address] Information not available 03/10/2022 Do You Use Protection During Sex? No Information not available 03/10/2022 Difficulty Reading? No [email or web address] Information not available 03/10/2022 What Is Your Relationship Status? [email or web address] Information not available 03/10/2022 Do You Use Your Seat Belt Or Car Seat Routinely? Yes [email or web address] Information not available 03/04/2021 Seat Belts Used Routinely Yes Information not available 03/10/2022 Are You Sexually Active? No Information not available 08/15/2014 Smoke Alarm In Home Yes [email or web address] Information not available 03/10/2022 Do You Have Smoke And Carbon Monoxide Detectors In Your Home? Yes [email or web address] Information not available 03/04/2021 At What Age Did You Start Smoking Tobacco? 14 Quit At 40 Information not available 11/10/2015 Are You Passively Exposed To Smoke? No Information not available 11/10/2015 How Much Tobacco Do You Smoke? 0.5 PPD Information not available 09/29/2022 Do You Use Sunscreen Routinely? Yes Information not available 08/15/2014 How Many Years Have You Smoked Tobacco? 26 Information not available 11/10/2015 Do You Have Difficulty Walking Or Climbing Stairs? No [email or web address] Information not available 03/10/2022 Sex: Unknown Functional Status Question Answer Note LastModified by Organizat ion Details LastModified Time Do you use any illicit or recreational drugs? No [email or web address] Information not available 03/10/2022 Do you or have you ever used any other forms of tobacco or nicotine? No Information not available 09/29/2022 What is your level of alcohol consumption? Moderate 2 glasses of wine in evening Information not available 11/10/2015 Do you or have you ever used smokeless tobacco? Never used smokeless tobacco Information not available 03/01/2019 Are you currently employed? No Information not available 03/04/2021 Difficulty [address] at night? No Information not available 03/10/2022 Are you able to walk independently without assistance or assistive devices? YESWOREST [email or web address] Information not available 03/10/2022 Are you able to care for yourself independently? Yes Information not available 11/05/2013 What is your occupation? none Information not available 11/10/2015 Do you have difficulty dressing, bathing, grooming, or toileting? No Information not available 03/10/2022 Do you or have you ever used e-cigarettes or vape? Never used electronic cigarettes Information not available 03/10/2022 What is your exercise level? Occasional Information not available 03/04/2021 Mental Status Question Answer Note LastModified by Organization D etails LastModified Time Do you have difficulty concentrating, remembering or making decisions? No Information no t available 03/10/2022 Family History Relationship Description Onset Age of this Age Resolved Age Notes LastModified by Organization Details LastModified Time Mother Alzheimer's disease [email or web address] Not available 2021 14:02:33 Mother Depressive disorder [email or web address] Not available 2021 14:02:34 Mother Dementia [email or web address] Not available 03/10/2022 14:02:34 Father Cerebrovascu lar accident Not available 14:02:34 Father Hypercholest erolemia [email or web address] Not available 2013 14:03:44 Father Diabetes mellitus [email or web address] Not available 2021 14:02:34 Brother Diabetes mellitus of compli cation s [email or web address] Not available 03/10/2022 14:02:34 Brother Asthma Not available 03/10/2022 14:02:34 Brother Cerebrovascu lar accident 64 Not available 14:02:34 Brother Cerebrovascu lar accident 65 Not available 14:02:34 Brother Diabetes mellitus [email or web address] Not available 2021 14:02:34 Unspecified Relation Diabetes mellitus [email or web address] Not available 2021 14:02:34 Medical History Condition Response Coronary Artery Disease N Other N Gout N Kidney Stones N Blood Diseases N Hyperthyroidism N Breast Cancer N Depression N COPD N Lung Disease N Hypothyroidism N Defects or Inherited Disease [...] Problems N GI Problems N Acne N Skin Problems Y Eating Disorder N Anemia N Constipation N Bladder Problems N Mental Illness N Ovarian Cancer N Diabetes N Blood Transfusions N Seizures/Epilepsy N Tuberculosis N AIDS/HIV N Congestive Heart Failure (CHF) N Eczema Y Diverticulitis N Abuse/Domestic Violence N Asthma N Allergies Y Reflux/GERD N [...] high-dose, trivalent, PF 0 completed Trini greene [facility] 12/16/2019 11:04:50 varicella 4 completed KATARZYNA Guevara [facility] 03/04/2021 09:26:49 COVID-19 vaccine, vector-nr, rS-Ad26, PF, 0.5 mL 1 completed KATARZYNA Guevara [facility] 03/04/2021 09:26:49 COVID-19, mRNA, LNP-S, PF, 100 mcg/0.5mL dose or 50 mcg/0.25mL dose 1 completed KATARZYNA Guevara [facility] 03/04/2021 09:26:49 Influenza, high-dose, trivalent, PF 1 completed KATARZYNA Guevara [facility] 03/04/2021 09:31:50 Influenza, split virus, quadrivalent, PF 5 completed Not Available [facility] 04/13/2019 02:22:01 Influenza, high-dose, quadrivalent, PF 2 completed Not Available [facility] 04/28/2022 15:10:30 zoster recombinant 2 completed Not Available [facility] 04/28/2022 15:10:30 COVID-19, mRNA, LNP-S, PF, 100 mcg/0.5mL dose or 50 mcg/0.25mL dose 2 completed Not Available [facility] 04/28/2022 15:10:30 COVID-19, mRNA, LNP-S, PF, 100 mcg/0.5mL dose or 50 mcg/0.25mL dose 2 completed Not Available [facility] 04/28/2022 15:10:30 COVID-19, mRNA, LNP-S, bivalent, PF, 50 mcg/0.5 mL or 25mcg/0.25 mL dose 3 completed Not Available [facility] 04/06/2023 10:24:57 Pneumococcal conjugate PCV 13 6 completed Not Available [facility] 04/13/2019 02:21:36 Influenza, high-dose, trivalent, PF 6 completed Not Available [facility] 04/13/2019 02:22:03 pneumococcal polysaccharide PPV23 7 completed Not Available [facility] 04/13/2019 02:21:28 Influenza, high-dose, trivalent, PF 7 completed Not Available [facility] 04/13/2019 02:22:21 Influenza, split virus, trivalent, preservative 7 completed Not Available [facility] 10/08/2013 13:42:56 Tdap 8 completed Not Available [facility] 10/08/2013 13:42:56 Influenza, split virus, trivalent, preservative 1 completed Not Available [facility] 10/08/2013 13:42:56 influenza, seasonal, intradermal, preservative free 2 completed Not Available [facility] 10/08/2013 13:42:56 Influenza, split virus, trivalent, preservative 3 completed Not Available [facility] 10/08/2013 13:42:56 Influenza, high-dose, trivalent, PF 8 completed Not Available [facility] 04/13/2019 02:22:14 Td (adult), 2 Lf tetanus toxoid, preservative free, adsorbed 8 completed Not Available [facility] 04/13/2019 02:21:30 Influenza, high-dose, trivalent, PF 9 completed Not Available [facility] 04/13/2019 02:22:09 Influenza, split virus, trivalent, PF 4 completed Not Available [facility] 04/13/2019 02:21:58 Past Encounters Encounter ID Performer Location Encounter Start Date Encounter Closed Date Diagnosis/Indication Diagnosis SNOMED-CT Code Diagnosis ICD10 Code Diagnosis IMO Codes Diagnosis Note [id number] [address] [address] [facility] [place] [address] 08/02/2006 00:00:00 [id number] autoEComm erce [address] [facility] [place] [address] 08/23/2006 00:00:00 [id number] autoEComm erce [address] [facility] [place] [address] 12/29/2006 00:00:00 [id number] auto[facility]Comm erce [address] [facility] [place] [address] 07/10/2007 00:00:00 [id number] autoEComm erce [address] [facility] [place] [address] 11/05/2007 00:00:00 [id number] auto[facility]Comm erce [address] [facility] [place] [address] 01/09/2008 00:00:00 [id number] autoEComm erce [address] [facility] [place] [address] 11/18/2008 00:00:00 [id number] auto[facility]Comm erce [address] [facility] [place] [address] 01/13/2009 00:00:00 [id number] [place] [address] 01/28/2009 00:00:00 [id number] auto[facility]Comm erce [address] [place] [place] [address] 07/28/2009 00:00:00 [id number] auto[facility]Comm erce [address] [place] [place] [address] 11/16/2009 00:00:00 [id number] autoEComm erce [address] [facility] [place] [address] 11/24/2010 00:00:00 [id number] autoEComm erce [address] [facility] [place] [address] 08/12/2011 00:00:00 [id number] autoEComm erce [address] [facility] [place] [address] 07/31/2012 00:00:00 [id number] autoEComm erce [address] [facility] [place] [address] 03/04/2013 00:00:00 [id number] Prasanna Abebe MD Main Office [address] [address] [place] [address] 11/05/2013 13:05:00 11/05/2013 14:12:37 Allergic rhinitis 05281841 Essential hypertension 46166673 Osteoarthr itis of knee 390504812 Irritable bowel syndrome 29006117 Hyperlipidemia 65229498 Fatigue 22640763 [id number] Prasanna Abebe MD Main Office [address] [address] [place], [place] [address] 02/07/2014 10:16:49 02/07/2014 11:35:10 Adult health examination 403060602 Essential hypertension 33435876 Needs infl uenza immunization 119058906 Irritable bowel syndrome 94853389 Acute sinusitis 70971122 [id number] Prasanna Abebe MD Main Office [address] [address] [place] [address] 08/15/2014 12:46:16 08/15/2014 13:34:48 Carpal tunnel syndrome 89671956 Pre-surger y evaluation 839456222 [id number] JC Parker Main Office [address] [facility] [address] [place] [address] 10/14/2014 09:50:53 10/14/2014 10:29:09 Pre-surgery evaluation 497228193 Rainey Perioperat des Cardiac Risk was calculated and the risk for perioperat des MO is 0.16 %. Had EKG at last visit, no further work-up necessary. May proceed to surgery as planned. Carpal trini lelia syndrome 40788408 Having right carpal tunnel release with Dr. Jcakson 10/21. Irritable bowel syndrome 72281368 Requests refill on med. [id number] Prasanna Abebe MD Main Office [address] [address] [place] [address] 01/22/2015 10:10:34 01/22/2015 10:38:57 Needs influenza immunization 721707902 Z23 [id number] Prasanna Abebe MD Main Office [address] [address] [place] [address] 11/10/2015 09:47:47 11/10/2015 11:14:13 Adult health examination 462335886 Z00.00 Essential hypertension 80233040 I10 Hyperlipidemia 45900797 E78.5 Anxiety state 672567719 F41.1 Administra tion of pneumococcal vaccine 59041414 Z23 Irritable bowel syndrome 64228446 K58.9 Osteoarthr itis of knee 657884447 M17.0 Neck pain 14859213 M54.2 [id number] Prasanna Abebe MD Main Office [address] [facility] [address] [place] [address] 03/09/2016 10:19:50 03/09/2016 10:44:39 Influenza vaccine needed 5667787592 106 Z23 [id number] Prasanna Abebe MD Main Office [address] [facility] [address] [place] [address] 08/03/2016 10:19:11 08/03/2016 11:13:03 Essential hypertension 75461241 I10 Benign par oxysmal positional vertigo 438315245 H81.10 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 6658733 M70.62 Neck pain 84838173 M54.2 [id number] Prasanna Abebe MD Main Office [address] [address] [place] [address] 10/26/2016 09:19:18 10/26/2016 10:03:05 Essential hypertension 00929719 I10 Bursitis of hip 31906394 M71.559 Hyperlipidemia 97770985 E78.5 [id number] Prasanna Abebe MD Main Office [address] [address] [place] [address] 02/07/2017 10:18:55 02/07/2017 11:38:28 Adult health examination 629156125 Z00.00 Administra tion of pneumococcal vaccine 55348864 Z23 Influenza vaccine needed 3929156757 106 Z23 Irritable bowel syndrome 87751094 K58.9 Bursitis of hip 41160495 M71.559 Thoracic back pain 58789 8004 M54.6 Hyperlipidemia 14674795 E78.5 Fatigue 25811714 R53.83 Essential hypertension 25816521 I10 [id number] JC Parker Main Office [address] [place] [address] 08/17/2017 10:11:48 08/17/2017 11:13:00 Essential hypertension 43912060 I10 BP slightly elevated today, repeat manual BP 150/80 right, 138/80 left. Take med daily as directed, DASH diet Benign par oxysmal positional vertigo 209977581 H81.10 c/o vertigo however this may be related to sinus pain/ pressure and middle ear fluid- allergy sx. Referral provided but she may try allergy meds first Loss of hair 396198585 L 65.9 c/o hair loss. she does have a dermatolog ist in [place], will check labs. Fatigue 82555179 R53.83 Low back pain 277209006 M54.5 Left SI joint pain with sitting for long periods, no other low back pain, will XR, may need physiatry referral Allergic rhinitis 741380 04 J30.9 to start zyrtec daily at bedtime an flonase daily- takes 3-5 days to kick in fully. should use for at least 2 weeks, if not through allergy season. [id number] Prasanna Abebe MD Main Office [address] [address] [place] [address] 12/15/2017 13:27:01 12/15/2017 15:57:28 Influenza vaccine needed 4793994028 106 Z23 [id number] JC Parker Main Office [address] [address] [place] [address] 02/27/2018 13:18:12 02/27/2018 14:20:30 Adult health examination 408321540 Z00.00 HM UTD Essential hypertension 58927213 I10 Hepatitis C screening 41 8618925 Z11.59 Requires a tetanus booster 196286254 Z23 Fatigue 93587262 R53.83 Neck pain 17860819 M54.2 s/p fall 4 weeks ago she would like to go to PT again. 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 encouraged to hydrate, rest as much as possible. [id number] Prasanna Abebe MD Main Office [address] [address] [place] [address] 01/12/2019 08:10:27 01/12/2019 08:25:41 Influenza vaccine needed 3995544296 106 Z23 [id number] Hola Rodriguez MD Main Office [address] [address] [place] [address] 03/01/2019 10:51:46 03/01/2019 11:57:54 Adult health examination 102883567 Z00.00 HM UTD, wishes to hold off on bloodwork this year Essential hypertension 44753739 I10 Postconcus dragan syndrome 74413164 F07.81 Working th rough the pain of grief 184569366 F43.21 lost her baby brother in August from an unexpected stroke, is grieving. [id number] Hola Rodriguez MD Main Office [address] [place] [address] 03/03/2020 10:51:15 03/03/2020 11:58:25 Adult health examination 570288671 Z00.00 UTD, wishes to hold off on bloodwork this year Essential hypertension 69206638 I10 BP borderline . instructed to check 1 hour after taking lisinopril . if still high will increase dose Headache 06109940 R51.[address], will consider migraine med daily if CT negative Fatigue 19066940 R53.83 Screening for cardiovascular system disease 166580348 Z13.6 [id number] Hola Rodriguez MD Main Office [address] [address] [place] [address] 03/04/2021 09:13:09 03/04/2021 10:12:53 Adult health examination 712977376 Z00.00 UTD, declines to go for pap. Essential hypertension 06011267 I10 Osteopenia 341458547 M85 .80 Headache 43132170 R51.9 Fatigue 21623736 R53.83 Screening for cardiovascular system disease 594668152 Z13.6 Rib pain [id number] R07.8 1 will check XR Thoracic back pain 99360 8004 M54.6 will check XR Disorder o f musculoskeletal system 058445 M85.89 [id number] Hola Rodriguez MD Main Office [address] [address] [place] [address] 03/10/2022 13:58:38 03/10/2022 14:55:58 Adult health examination 821342596 Z00.00 UTD, declines to go for pap. Essential hypertension 39595086 I10 Headache 84981193 R51.9 Fatigue 68773242 R53.83 Hyperlipidemia 76817588 E78.5 Osteoporosis 41586159 M8 1.0 will hold off on treatment for now, continue calcium, start vitd D 2000 units per day and weight bearing exercise. Pain of ri ght shoulder joint [id number] 1749046 M25.511 [id number] Torey Banuelos MD Main Office [address] [address] [place] [address] 04/28/2022 14:52:53 04/28/2022 16:01:54 Low back pain 218486441 M54.50 s/p fall last night - rec [...] rtc in 4 days for re-eval Pain of ri ght hip joint [id number] 56150 M25.551 [id number] Torey Banuelos MD Main Office [address] [facility] [address] [place] [address] 05/02/2022 14:49:28 05/02/2022 16:09:14 Compression fracture of lumbar spine 702412886 M48.56XA cont ice, calcium/vi t d as dir, and begin calcitonin as dir as well - not available at [facility] so will try another -- see below Osteoporosis 16750430 M8 1.0 see above - will also get endo eval rtc 6 wks, sooner prn [id number] Hola Rodriguez MD Main Office [address] [place] [address] 05/12/2022 10:29:45 05/12/2022 11:40:54 Compression fracture of vertebral column 68077487 M48.50XD continue meloxicam daily- should be taken during the day to benefit her during the day-0 she will not take it tonight and start it again tomorrow morning. continue calcitonin spray, will add robaxin to use as needed, heat or ice whichever feels best. Will check urine, and bloodwork. orders entered earlier today Increased frequency of urination 996608378 R35.0 Disorder o f bone and articular cartilage 831414879 M24.10 Essential hypertension 36621662 I10 controlled on current meds, continue as directed. [id number] Torey Banuelos MD Main Office [address] [facility] [address] [place] [address] 06/13/2022 10:19:39 06/13/2022 11:43:46 Compression fracture of vertebral column 66280039 M48.50XD stable, cont meds as dir, rec increase tyl 500mg to schedule 1-2 tabs tid rather than prn, cont alt ice/heat prn Osteoporosis 84238199 M8 1.0 seen by shaista, next 5.12.23 Pain of ri ght shoulder joint [id number] 6542188 M25.511 pending f/u c neos in a few days, cont PT as dir by neos [id number] Hola Rodriguez MD Main Office [address] [facility] [address] [place] [address] 09/29/2022 09:19:28 09/29/2022 10:26:44 Hyponatremia 33239958 E87.1 recheck labs Memory impairment 201528 006 R41.3 sx worsening since Fall in [...] etc. Compressio n fracture of lumbar spine 579811198 M48.56XA takign tylenol as needed, will add diclofenac gel as needed [id number] Hola Rodriguez MD Main Office [address] [address] 04/06/2023 10:20:31 04/06/2023 11:18:51 Adult health examination 208365040 Z00.00 HM UTD, hx of hysterecto my, no vaginal bleeding, discharge. Essential hypertension 46637820 I10 controlled on current meds, continue as directed. Fatigue 80863061 R53.83 Hyperlipidemia 40080891 E78.5 Osteoporosis 38818948 M8 1.0 tymlos injections daily. Hyponatremia 15581510 E8 7.1 recheck labs Memory impairment 755260 006 R41.3 sx worsening since Fall in Apr. CIT score 16, was 0 in february of 2022. She does repeat some phrases. Address line repeated and she again is unable to remember the address. re- refer to memory disorders clinic. Encouraged brain stimulatio n, getting back into reading, crossword puzzles, sudoku, crocheting or knitting, jigsaw puzzles etc. [id number] Hola Rodriguez MD Main Office [address] [facility] [address] [place] [address] 10/06/2023 10:15:17 10/06/2023 11:10:19 Essential hypertension 57950928 I10 controlled on current meds, continue as directed.B P seems to be elevated in the afternoons , take 20mg in the am and 10mg pm- 5pm. Hyperlipidemia 17147461 E78.5 Osteoporosis 71866209 M8 1.0 tymlos injections daily. Hyponatremia 09717445 E8 7.1 recheck labs Compressio n fracture of vertebral column 94074353 M48.50XD [id number] Hola Rodriguez MD Main Office [address] [address] [place] [address] 04/09/2024 10:46:22 04/09/2024 12:08:07 Adult health examination 451309848 Z00.00 HM UTD, hx of hysterecto my, no vaginal bleeding, discharge. , mammograms -declines is age 73. colo will have one more visit. pap not needed vaginal exams done Essential hypertension 45257916 I10 controlled on current meds, continue as directed. Fatigue 99687846 R53.83 Hyperlipidemia 78525118 E78.5 Memory impairment 557157 006 R41.3 sx worsening since Fall in [...] etc. Screening for malignant neoplasm of colon 719890636 Z12.11 [id number] Hola Rodriguez MD Main Office [address] [address] [place] [address] 07/15/2024 10:09:11 07/15/2024 10:52:04 Essential hypertension 21979314 I10 BP today is 126/67-wel l controlled with current regimen Pt counselled on:-Dietar y Approaches to Stop Hypertensi on (DASH) is an eating plan rich in fruits, vegetables , whole grains, fish, poultry, nuts, legumes, and low-fat dairy. These foods are high in horn nutrients such as potassium, magnesium, calcium, fiber, and protein.-A dvised continued adherence to medication s and low salt diet - extensive counsellin g done regarding dietary habits.-En couraged regular aerobic exercise 30 min for 4-5 x week.-BP monitoring at home advised to bring log at every visit-Side -effects of high BP can cause Stroke, Heart attack and even d/w pt-D/w pt when to call 911 or reach out to Health care provider:> Think you are having a reaction to a medicine you are taking.>Hook ve headaches that keep coming back (recurring ).>Feel dizzy.>Hav e swelling in your ankles.>Hook ve trouble with your vision. Osteoporotic fracture 44 0644094 M80.00XD 23007418 follows with endocrinol manas plascencia on alendronat e weekly-is UTD on bone density scan, due in 2025 Alzheimer's disease 2692 9004 G30.9 F02.80 50487 follows with memory clinic/anamaria burkett-nichelle crowe saw in 01/2024-is not a candidate for anti-amylo id tx-has f/u appt later this year with neuro-c/w conservati ve measuremen ts provided by neuro Hyperlipidemia 88018604 E78.5 47872032 Health Concerns Section Related Observation LastModified by Organization Detai ls LastModified Time None Recorded Concern Status LastModified by Organization Details LastModified Time None Recorded Advance Directives Directive N: needs MOLST Payers Insurance Date Sequence Insurance Name Policy Number Policy Louis Covered Member ID Louis Member ID Guarantor Name 07/30/2024 2 [facility] - MEDICARE ENHANCE (INDEMNITY PLAN) Vickie Barr [id number] Vickie Barr 07/15/2024 1 [place] [employer] Vickie Barr [id number] Vickie Thomasesen 04/09/2024 1 [employer] [facility] [place] [facility] (MEDICARE REPLACEMENT/A DVANTAGE - PPO) [id number] Vickie Thomaseverettn [id number] Vickiejose Thomasesen 04/09/2024 [employer] [employer] [employer] [place] [employer] (MEDICARE REPLACEMENT/A DVANTAGE - PPO) [id number] Vickie Jennifer Marthaesen [id number] Vickiejose Thomasesen 04/09/2024 1 [place] [id number] Vickie E Isidoron [id number] Vickie E Marthaesen 04/09/2024 2 [facility] (MEDICARE SUPPLEMENT) Vickie Thomasmartha [id number] Vickie Jennifer Jun Notes Date Note Type Note Provider Name and Address Organization Details Recorded Time 09/29/2022 text/html Generic HPI TemplateReported by PatientPresents with concerns of memory changes.Started after her fall with compression fracture in Apr. She has seen endocrinology and is on tx for osteoporosis. For [address] or get her nails/ hair done. They were unable to go to [place] this year, their bathroom was being remodeled, [...] good sense of direction or driven much. Miller Andrade, [facility] [address], [place], [address], [facility] 09/29/2022 10:37:07 04/06/2023 text/html Medicare Annual Wellness VisitReported by PatientSocial/Behavior al HistoryFor fracture risk, patient reportshistory of fracturesbut reportsno recent explained fractureandno sudden unexplained fractures. For diet and nutrition, patient reportshealthy diet,discussed vitamin and supplement use,discussed portion control, anddiscussed diet improvement. For physical activity, patient reportsrecent increase in physical activity,good physical condition,discussed weightbearing activities, anddiscussed exercise habits(re-starting treadmill).Mental Status:For concentration and memory, patient reportsmemory lapses or lossbut reportsno decreased concentrating abilityanddoes not forget words. For depression risk, patient reportsnever feels sad, empty, or tearful,no loss of interest in activities,no agitation,no history of depression, andno history of mood disorders. For orientation, patient reportsno disorientation to time,no disorientation to date, andno disorientation to place. For speech/motor difficulties, patient reportsno speech difficulties,no difficulty expressing formulated concepts,no difficulty with fine manipulative tasks,no difficulty writing/copying,no slowed reaction time, anddoes not knock things over when trying to pick them up.Functional AbilityFor hearing, patient reportsno loss of hearing. For vision, patient reportsno vision problems(wears glasses). For activities of daily living, patient reportsable to bathe with limited or no assistance,able to contol urination and bowels,able to dress with limited or no assistance,able to feed self with limited or no assistance,able to get out of chair or bed with limited or no assistance,able to groom with limited or no assistance, andable to toilet with limited or no assistance. For instrumental activities of daily living, patient reportsable to do house work with limited or no assistance,able to grocery shop with limited or no assistance,able to manage medications with limited or no assistance,able to manage money with limited or no assistance,able to prepare meals with limited or no assistance, andable to use the phone with limited or no assistance. For falls risk assessment, patient reportsno frequent falls while walking,no fall in the past year, andno fall since last visit. For home safety, patient reportsworking smoke/co detectorsanduse of seatbelts.Back to reading, doing crosswords, back to her [...] they have not heard back yet. Miller Andrade, [facility] [address], [place], [address], [facility] 04/06/2023 12:36:27 10/06/2023 text/html Generic HPI TemplateReported by PatientPresents with her Walter:6 month f/u Saw Dr. [...] memory clinic, 10/22 has eye appt. Miller Andrade, [facility] [address], [place], [address], [facility] 10/06/2023 11:24:36 04/09/2024 text/html Medicare Annual Wellness VisitReported by PatientSocial/Behavior al HistoryFor fracture risk, patient reportshistory of fracturesbut reportsno recent explained fractureandno sudden unexplained fractures. For diet and nutrition, patient reportshealthy diet,discussed vitamin and supplement use,discussed portion control, anddiscussed diet improvement. For physical activity, patient reportsrecent increase in physical activity,good physical condition,discussed weightbearing activities, anddiscussed exercise habits.Mental Status:For concentration and memory, patient reportsmemory lapses or lossandforgetting wordsbut reportsno decreased concentrating ability. For depression risk, patient reportsnever feels sad, empty, or tearful,no loss of interest in activities,no agitation,no history of depression, andno history of mood disorders. For orientation, patient reportsno disorientation to time,no disorientation to date, andno disorientation to place. For speech/motor difficulties, patient reportsno speech difficulties,no difficulty expressing formulated concepts,no difficulty with fine manipulative tasks,no difficulty writing/copying,no slowed reaction time, anddoes not knock things over when trying to pick them up.Functional AbilityFor hearing, patient reportsno loss of hearing. For vision, patient reportsno vision problems(wears glasses). For activities of daily living, patient reportsable to bathe with limited or no assistance,able to contol urination and bowels,able to dress with limited or no assistance,able to feed self with limited or no assistance,able to get out of chair or bed with limited or no assistance,able to groom with limited or no assistance, andable to toilet with limited or no assistance. For instrumental activities of daily living, patient reportsable to do house work with limited or no assistance,able to grocery shop with limited or no assistance,able to manage medications with limited or no assistance,able to manage money with limited or no assistance,able to prepare meals with limited or no assistance, andable to use the phone with limited or no assistance. For falls risk assessment, patient reportsno frequent falls while walking,no fall in the past year, andno fall since last visit. For home safety, patient reportsworking smoke/co detectorsanduse of seatbelts.Back to reading, back to her normal activities [...] a few readings 150/ 80s. Miller Andrade, [facility] [address] [address], [place], [address], [facility] [place] 04/09/2024 12:40:01 07/15/2024 text/html ROS as noted in the HPI Vickie is a 73yr old F who presents for f/u on chronic conditions. HTN: well controlled with current regimen. Monitors BP daily at home. Denies of any red flag symptoms. Alzheimer's Disease: mild-moderate. per neuro: is not a candidate for anti-amyloid medications. follows with neurology/memory clinic- last saw 01/2024. Has a f/u appt later this year. JEFF CHEN [address] [address], [place], [address], [facility] 07/15/2024 11:02:09 OBGyn Episode No OBEpisode recorded.
--- OUTSIDE RECORDS SUMMARY | 2024-12-23 12:16 | XMS_ITS | Clinical Summary ---
Author Organization [facility] Address [address] [place] [address] Care Team Providers Care Salesperson Recreational [employer] Name Role Phone Unavailable Primary Care Provider Unavailabl e Social History Tobacco Use Types Packs/Day Years Used Date Smoking Tobacco: Never Assessed Sex and Gender Information Value Date Recorded Sex Assigned at Not on file Gender Identity Not on file Sexual Orientation Not on file Plan of Treatment Not on file
--- OUTSIDE RECORDS SUMMARY | 2024-12-23 12:16 | XMS_ITS | Clinical Summary ---
Author Organization [facility] Address [address] [place] [address] Phone Care Team Providers Care Mercerizer Name Role Phone Prasanna Abebe MD Primary Care Provider [phone] Allergies No known active allergies Medications lisinopril [...] ENHANCE SUPPLEMENT MEDICARE PART A & B [facility] ENHANCE SUPPLEMENT MEDICARE PART A & B [facility] MEDICARE ENHANCE SUPPLEMENT MEDICARE PART A & [place] [address] [address] [place] [address] MEDICARE ENHANCE SUPPLEMENT MEDICARE PART A & B [facility] MEDICARE ENHANCE SUPPLEMENT MEDICARE PART A & B [id number] [place] [address] MEDICARE ENHANCE SUPPLEMENT MEDICARE PART A & B [facility] MEDICARE ENHANCE SUPPLEMENT MEDICARE PART A & B [facility] MEDICARE ENHANCE SUPPLEMENT MEDICARE PART A & B [facility] MEDIC[facility] ENHANCE SUPPLEMENT Care Teams Mercerizer Relationship Specialty Start Date End Date Prasanna Abebe MD [address] [place] [phone] PCP - General Internal Medicine 07/26/18 Additional Source Comments The information contained in this document represents components of the legal health record. It is not the complete legal health record.[facility]
== END 2024-12-23 11:22 | disposition home or self-care (01) ==
LOC: HO.ENCR 10:45
PROVIDERS: PCP Registered Nurse; Visit Provider Internal Medicine Endocrinology, Diabetes & Metabolism
DX: M81.0 Age-related osteoporosis without current pathological fracture (principal)
CPT/HCPCS: 99213

== ENCOUNTER → 2024-12-23 10:45 | Outpatient (BNVA) | payer MEDICARE, OTHER, SELFPAY | PROVIDERS: PCP Registered Nurse; Visit Provider Internal Medicine Endocrinology, Diabetes & Metabolism | DX: M81.0 Age-related osteoporosis without current pathological fracture (principal) | CPT/HCPCS: 99212 ==